=== PATIENT | female | born 1950 | race Caucasian/White ===

== ENCOUNTER 2021-03-08 16:18 | Inpatient (IN) | payer MEDICARE, SELFPAY ==
[2021-03-08] VITALS (10 sets, daily range): BP systolic 100–161; BP diastolic 46–68; PULSE 66–76; RESP 16–24; TEMP 36.8–38.1; O2SAT 87–100; BMI 39.4
--- NOTE | ~2021-03-08 | XR_ITS ---
EXAMINATION: XR chest 1V portable DATE: 03/08/2021 18:27 INDICATION: Cough and fever. Lethargy. TECHNIQUE: A single frontal view of the chest was obtained. COMPARISON: Chest 2 views 05/26/2016 FINDINGS: Sensitivity is decreased by obesity. The chest demonstrates clear lungs without pneumonia, pleural effusion, or pneumothorax. The heart size is normal. IMPRESSION: 1. No acute cardiopulmonary disease. Reviewed, dictated and finalized at location A.
--- NOTE | ~2021-03-08 | XR_ITS ---
EXAMINATION: XR chest 1V portable INDICATION: COVID pneumonia TECHNIQUE: Portable AP chest at 1530 hours COMPARISON: 03/08/2021 FINDINGS: There are patchy bilateral airspace opacities. No pleural effusion or pneumothorax is ident ified. The cardiomediastinal silhouette is normal. There is mild osteoarthritis of the shoulders. IMPRESSION: 1. Patchy bilateral airspace opacities, likely COVID pneumonia. Reviewed, dictated and finalized at location B.
[2021-03-08 17:02] LABS: Glucose Point of Care 207 mg/dl (65-105)
[2021-03-08 18:12] LABS: Basophils Percent Auto 0.2 % (0.2-1.2); Hematocrit 36.6 % (37.0-47.0); Hemoglobin 11.7 g/dL (12.0-15.0); Immature Granulocyte Absolute 0.03 K/mm3 (0.00-0.031); Immature Granulocyte Percent A 0.6 % (0-0.5); Lymphocytes Absolute Auto 0.88 K/mm3 (0.9-3.2); Lymphocytes Percent Auto 18.3 % (18.3-44.2); Mean Corpuscular Hemoglobin 30.1 pg (26-34); Mean Corpuscular Volume 94.1 fl (80-100); Monocytes Absolute Auto 0.5 K/mm3 (0.1-0.6); Monocytes Percent Auto 9.8 % (2.6-8.5); Neutrophils Absolute Auto 3.4 K/mm3 (1.3-6.7); Neutrophils Percent Auto 71.1 % (45.5-73.1); Nucleated Red Blood Cells Perc 0.6 % (0.0-0.2); Platelet Count Result 175 k/mm3 (150-375); Red Blood Count 3.89 M/mm3 (4.2-5.4); Red Cell Distribution Width 13.9 % (11.5-14.5); White Blood Count 4.8 K/mm3 (4.5-10.0)
[2021-03-08 18:16] LABS: Alveolar/Arterial O2 Gradient 76.3 mmHg; Base Excess ABG 7.2 mEq/l (+/-2.0); Fractional Inspired Oxygen 28 %; HCO3 ABG 33.6 mEq/l (22.0-26.0); Oxygen Content ABG 16.1 %vol (16.0-22.0); Oxygen Saturation ABG 89.5 % (95.0-100.0); Oxyhemoglobin 87.9 % THb (90.0-100.0); PCO2 ABG 55.5 mmHg (35.0-45.0); PO2 ABG 57.9 mmHg (80.0-100.0); PO2 FiO2 Ratio Arterial Blood 2.07 %
[2021-03-08 18:21] LABS: Device NASAL CANNULA; Modified Allen's Test Pass; Site Drawn RIGHT RADIAL
--- NOTE | 2021-03-08 18:30 | PC.NURSE ---
SPOKE WITH DAUGHTER CARRIER, UPDATES GIVEN
--- NOTE | 2021-03-08 18:46 | PC.NURSE ---
PT STATES UNABLE TO VOID AT THIS TIME . STATES WILL TRY LATER
[2021-03-08 18:53] LABS: Anion Gap 4 mmol/L (8-16); Blood Urea Nitrogen 38 mg/dL (7-17); Calcium 8.3 mg/dL (8.4-10.2); Carbon Dioxide 32 mmol/L (22-30); Chloride 98 mmol/L (98-107); Estimated CRCL calculation 45 ml/min; Estimated Glomerular Filt Rate 44; Glucose 187 mg/dL (65-110); Lactate Dehydrogenase 840 U/L (313-618); Potassium 4.8 mmol/L (3.4-5.0); Sodium 134 mmol/L (137-145)
--- NOTE | 2021-03-08 19:56 | ED.FEVER ---
HPI - Fever General Chief Complaint: Fever Stated Complaint: fever, cough Time Seen by Provider: 03/08/21 17:33 Source: patient Mode of arrival: ambulatory Limitations: clinical condition History of Present Illness HPI Narrative: 70-year-old female Poor historian She has COPD and uses oxygen at home She did not get a Covid vaccination She went to [place] She has fever and a cough and shortness of breath in excess of what she typically experiences Related Data Home Medications Medication Instructions Recorded Confirmed amlodipine 2.5 mg PO DAILY 03/08/21 03/08/21 aspirin [Aspir-81] 81 mg PO DAILY 03/08/21 03/08/21 atorvastatin 40 mg PO DAILY 03/08/21 03/08/21 yrhegsq-kapniozvy-psgq 1 tab-cap PO DAILY 03/08/21 03/08/21 clopidogrel 75 mg PO DAILY 03/08/21 03/08/21 diazepam 10 mg PO HS 03/08/21 03/08/21 hydrochlorothiazide 25 mg PO DAILY 03/08/21 03/08/21 hydrocodone-acetaminophen 1 tablet PO PRN 03/08/21 03/08/21 lisinopril 40 mg PO DAILY 03/08/21 03/08/21 Allergies Allergy/AdvReac Type Severity Reaction Status Date / Time Penicillins Allergy Unknown HIVES Verified 03/08/21 18:17 Sulfa (Sulfonamide Allergy Unknown REDNESS/ALEXANDRA Verified 03/08/21 18:17 Antibiotics) H Review of Systems Review of Systems: All systems reviewed & are unremarkable except as noted in HPI and below Constitutional: Constitutional: Reports no additional constitutional complaints, Reports chills, Reports fatigue, Reports fever(s) and Denies headache(s) Eyes: Eyes: Reports no additional eye complaints and Denies change in vision ENT: Denies headache(s) and Denies sore throat Cardiovascular: Cardiovascular: Denies chest pain and Denies dyspnea Respiratory: Respiratory: Reports cough and Reports dyspnea Gastrointestinal: Gastrointestinal: Denies abdominal pain, Denies diarrhea and Denies vomiting Genitourinary: Genitourinary: Denies urinary frequency and Denies dysuria Musculoskeletal: Musculoskeletal: Denies deformity, Denies arthralgias, Denies joint swelling and Denies numbness Integumentary/Breasts: Skin/Breast: Denies rash and Denies wounds Neurologic: Denies headache(s), Denies focal weakness and Denies numbness Psychiatric: Psychiatric: Reports no additional psychiatric complaints Endocrine: Endocrine: Reports no additional endocrine complaints Hematologic/Lymphatic: Hematologic/Lymphatic: Reports no additional hematologic/lymphatic complaints Allergic/Immunologic: Allergic/Immunologic: Reports no additional allergic/immunologic complaints [facility] Social History Social History Gender identity (if verbalized by the patient): Female Exam Const: General: cooperative, no acute distress and alert Nutritional Appearance: obese Orientation/consciousness: confusion Other: Appears chronically ill HENMT: Head: normal to inspection, normocephalic and atraumatic Ears: external ears normal General nose exam: no epistaxis Mouth: Yes moist mucous membranes Eyes: Conjunctivae: conjunctivae normal EOM: EOMs intact bilaterally Neck: Neck: normal visual inspection, supple and no JVD Resp: Effort & Inspection: normal respiratory effort and not labored Auscultation: no rales, no rhonchi, no wheezes and other (BS =) Cardio: Rate: regular rate Rhythm: regular rhythm Heart sounds: no murmurs GI: GI Palp: Yes Soft to palpation and No Tenderness to palpation present (GI) Skin: General skin exam: no rashes or lesions noted Other: Marked venous stasis changes both legs Neuro: General: moves all extremities Speech: normal speech Extrem: General: normal to inspection and no pedal edema Psych: Affect: normal affect Course [employer] Physician Supervision Certainly could have Covid given she is unvaccinated and her travel to an endemic area which would be very unfortunate considering her underlying comorbidities and age No infiltrate on chest x-ray so initially would treat as a bacterial COPD exacerbation with nebs
[2021-03-08] MEDS: IPRATROPIUM BR 0.02% INH SOLN 0.5 MG/2.5 ML VIAL INHALATION (20:13)
[2021-03-08] MEDS: ALBUTEROL SULFATE NEB 2.5 MG/0.5 ML INH 5 MG INHALATION (20:13)
[2021-03-08 23:09] LABS: Lactic Acid Reflex 1.2 mmol/L (0.7-2.1)
--- NOTE | 2021-03-08 23:24 | PM.IMHP ---
H&P: HPI History of Present Illness Date/Time: 03/08/21 23:24 Chief Complaint: Fevers Narrative: This is a 70-year-old female with past medical history significant for hypertension, dyslipidemia. Patient presented to the emergency room due to fevers chills shortness of breath cough general malaise muscle aches and pains poor appetite fatigue lack of energy. Patient is on vaccinated and she had been to [facility] visiting she notice of these symptoms after she came back about a week into it. In emergency room patient was found with no infiltrates on chest x-ray. She received breathing treatments and a COVID swab was sent. Patient is being admitted to regular medical floor and placed in airborne isolation. Review of Systems Review of Systems: FEVERS CHILLS GENERAL MALAISE MUSCLE ACHES AND PAINS GENERALIZED WEAKNESS LACK OF ENERGY SHORTNESS OF BREATH Constitutional: Constitutional: Reports chills, Reports fatigue, Reports fever(s), Reports lethargy and Reports malaise Eyes: Eyes: Denies change in vision ENT: Denies dysphagia, Denies nasal congestion, Denies nasal discharge, Denies nasal obstruction and Denies odynophagia Cardiovascular: Cardiovascular: Denies irregular heart rhythm, Denies lightheadedness, Denies radiating jaw, neck or arm pain, Denies palpitations, Denies dyspnea on exertion and Denies orthopnea Respiratory: Respiratory: Reports cough, Reports dyspnea and Reports wheezing Gastrointestinal: Comments: POOR APPETITE Genitourinary: Genitourinary: Reports no additional female genitourinary complaints Musculoskeletal: Musculoskeletal: Reports muscle weakness Integumentary/Breasts: Skin/Breast: Reports system reviewed and no additional complaints, except as docu Neurologic: Reports system reviewed and no additional complaints, except as documented, Denies focal weakness and Denies Sensory deficit (Neuro) Psychiatric: Psychiatric: Reports no additional psychiatric complaints Endocrine: Endocrine: Reports no additional endocrine complaints Hematologic/Lymphatic: Hematologic/Lymphatic: Reports no additional hematologic/lymphatic complaints Allergic/Immunologic: Allergic/Immunologic: Reports no additional allergic/immunologic complaints [facility] Social History Social History Smoking status: Former smoker Tobacco type: cigarettes Alcohol intake: never Substance use: never Substance use type: does not use Gender identity (if verbalized by the patient): Female Spiritual care concerns: No Meds Home Medications and Allergies Home Medications Medication Instructions Recorded Confirmed Type amlodipine 2.5 mg PO DAILY 03/08/21 03/08/21 History aspirin [Aspir-81] 81 mg PO DAILY 03/08/21 03/08/21 History atorvastatin 40 mg PO DAILY 03/08/21 03/08/21 History [id number]-[id number]-[id number] 1 tab-cap PO DAILY 03/08/21 03/08/21 History clopidogrel 75 mg PO DAILY 03/08/21 03/08/21 History diazepam 10 mg PO HS 03/08/21 03/08/21 History hydrochlorothiazide 25 mg PO DAILY 03/08/21 03/08/21 History hydrocodone-acetaminophen 1 tablet PO PRN 03/08/21 03/08/21 History lisinopril 40 mg PO DAILY 03/08/21 03/08/21 History Allergies Allergy/AdvReac Type Severity Reaction Status Date / Time Penicillins Allergy Unknown HIVES Verified 03/08/21 18:17 Sulfa (Sulfonamide Allergy Unknown REDNESS/ALEXANDRA Verified 03/08/21 18:17 Antibiotics) H Vital Signs Vital Signs - 24 hr 03/08/21 16:43 03/08/21 17:56 03/08/21 18:47 Temperature 100.5 F H Pulse Rate 69 76 71 Respiratory Rate 20 24 H 16 Blood Pressure 102/46 L 113/50 L 100/60 Pulse Oximetry 87 L 100 96 03/08/21 19:57 03/08/21 20:16 03/08/21 20:21 Temperature 99.5 F Pulse Rate 68 76 66 Respiratory Rate 18 18 22 H Blood Pressure 136/68 Pulse Oximetry 96 03/08/21 20:57 03/08/21 21:57 03/08/21 22:25 Temperature 98.2 F Pulse Rate 75 72 75 Respiratory Rate 20 17 20 Blood Pressure 158/55 H 140/68 161/54 H Pulse Oximetry 98 99 92 Exam Na
[2021-03-08] MEDS: LACTATED RINGERS 1,000 ML 125 ML IV CONT (23:56)
[2021-03-09] VITALS (11 sets, daily range): BP systolic 113–160; BP diastolic 49–83; PULSE 61–84; RESP 18–20; TEMP 35.8–36.8; O2SAT 91–94
[2021-03-09] MEDS: ALBUTEROL SULFATE NEB 2.5 MG/0.5 ML INH 5 MG INHALATION ×3 (02:37→23:48)
[2021-03-09] MEDS: IPRATROPIUM BR 0.02% INH SOLN 0.5 MG/2.5 ML VIAL INHALATION ×3 (02:38→23:48)
--- NOTE | 2021-03-09 07:59 | PC.NURSE ---
Admission performed on arrival. Patient was alert and oriented. She seemed like a good historian though had some lapses in memory. She denied pain. She stated that she had a strong appetite and hadn't eaten dinner. She had some minor weakness, likely related to hypoxia. It was reported that her SpO2 was < 70% on RA w/o oxygen while ambulating, so her NC was left on 1 lpm though she had an SpO2 of 94% at rest. We discussed hospital policy, testing, call light use, and safety issues regarding IV use and the importance of calling for help.
[2021-03-09 08:56] LABS: Glucose Point of Care 447 mg/dl (65-105)
[2021-03-09 08:56] LABS: Glucose Point of Care 433 mg/dl (65-105)
[2021-03-09 09:09] LABS: Glucose Point of Care 447 mg/dl (65-105)
[2021-03-09] MEDS: hydroCHLOROthiazide 25 MG TABLET PO (09:16)
[2021-03-09] MEDS: ATORVASTATIN 40 MG TABLET PO (09:16)
[2021-03-09] MEDS: amLODIPine BESYLATE 2.5 MG TABLET PO (09:17)
[2021-03-09] MEDS: lisinopriL 20 MG TABLET 40 MG PO (09:17)
[2021-03-09] MEDS: ENOXAPARIN 40 MG/0.4 ML SYRINGE SUB-Q (09:18)
[2021-03-09] MEDS: ASPIRIN 81 MG ENTERIC TABLET PO (09:18)
[2021-03-09] MEDS: CLOPIDOGREL BISULFATE 75 MG TABLET PO (09:19)
[2021-03-09] MEDS: INSULIN ASPART (*BKC) 100 UNITS/ML 8 UNITS SUB-Q (09:26)
--- NOTE | 2021-03-09 10:35 | PCRCNOTE ---
Window of time for administration has passed. See next scheduled administration.
[2021-03-09 11:24] LABS: Glucose Point of Care 485 mg/dl (65-105)
[2021-03-09 11:31] LABS: Hemoglobin A1C 10.4 % (<5.7)
[2021-03-09] MEDS: INSULIN ASPART (*BKC) 100 UNITS/ML SUB-Q ×2 (12:13→18:07)
[2021-03-09] MEDS: INSULIN GLARGINE (*BKC) 100 UNITS/ML 25 UNITS SUB-Q (12:13)
[2021-03-09 13:19] LABS: Glucose Point of Care 442 mg/dl (65-105)
--- NOTE | 2021-03-09 15:36 | PM.IMPN ---
Progress Note: A&P Assessment and Plan (1) Acute exacerbation of chronic obstructive pulmonary disease: Code(s): J44.1 - Chronic obstructive pulmonary disease with (acute) exacerbation Status: Acute Assessment and Plan: 03/09/21 15:36 Patient is 70-year-old female with history of chronic respiratory failure on home oxygen, COPD, diabetes, coronary artery disease, patient presented emergency department with a cough, shortness of breath and fever, patient is unvaccinated and recently went to [place] and since then her symptoms have developed, patient is high risk COVID-19 patient being tested an isolated, from emergency depart patient started on dexamethasone, DuoNeb, ceftriaxone and doxycycline, currently patient states feeling better compared to when she arrived not a short of breath, currently denies any fever or chills, will follow-up on COVID 19, and further recommendation to follow. (2) Fever: Code(s): R50.9 - Fever, unspecified Status: Acute Assessment and Plan: most likely secondary to COVID-19 being tested (3) Person under investigation for COVID-19: Code(s): Z20.822 - Contact with and (suspected) exposure to COVID-19 Status: Acute Assessment and Plan: patient is isolated, (4) Diabetes: Code(s): E11.9 - Type 2 diabetes mellitus without complications Status: Acute Assessment and Plan: will continue home regimen and monitor sliding scale (5) Hypertension: Code(s): I10 - Essential (primary) hypertension Status: Acute Assessment and Plan: will continue home regimen and monitor Subjective Date/time seen: 03/09/21 15:36 Patient is 70-year-old female with history of chronic respiratory failure on home oxygen, COPD, diabetes, coronary artery disease, patient presented emergency department with a cough, shortness of breath and fever, patient is unvaccinated and recently went to [place] and since then her symptoms have developed, patient is high risk COVID-19 patient being tested an isolated, from emergency depart patient started on dexamethasone, DuoNeb, ceftriaxone and doxycycline, currently patient states feeling better compared to when she arrived not a short of breath, currently denies any fever or chills, will follow-up on COVID 19, and further recommendation to follow. Review of Systems Review of Systems: All systems reviewed & are unremarkable except as noted in HPI and below Exam Narrative: morbidly obese Patient is comfortable, NAD HEENT: eyes are clear and none icteric LUNGS: normal respiratory effort ABD: distended Lower extremities: obese, edema SKIN: nonjaundiced Neuro: grossly intact normal speech. Objective Data Vital Signs Vital Signs: Vital Signs - 24 hr 03/08/21 16:43 03/08/21 17:56 03/08/21 18:47 Temperature 100.5 F H Pulse Rate 69 76 71 Respiratory Rate 20 24 H 16 Blood Pressure 102/46 L 113/50 L 100/60 Pulse Oximetry 87 L 100 96 03/08/21 19:57 03/08/21 20:16 03/08/21 20:21 Temperature 99.5 F Pulse Rate 68 76 66 Respiratory Rate 18 18 22 H Blood Pressure 136/68 Pulse Oximetry 96 03/08/21 20:57 03/08/21 21:57 03/08/21 22:25 Temperature 98.2 F Pulse Rate 75 72 75 Respiratory Rate 20 17 20 Blood Pressure 158/55 H 140/68 161/54 H Pulse Oximetry 98 99 92 03/08/21 22:43 03/09/21 02:38 03/09/21 02:41 Temperature Pulse Rate 75 75 Respiratory Rate 20 20 Blood Pressure Pulse Oximetry 92 94 03/09/21 02:49 03/09/21 04:00 03/09/21 08:00 Temperature 96.7 F L 96.5 F L Pulse Rate 77 66 63 Respiratory Rate 20 20 Blood Pressure 160/83 H 148/57 H Pulse Oximetry 94 92 03/09/21 11:57 03/09/21 11:59 03/09/21 12:00 Temperature 96.8 F L Pulse Rate 61 68 Respiratory Rate 18 18 Blood Pressure 113/49 L Pulse Oximetry 91 94 03/09/21 12:04 Temperature Pulse Rate 65 Respiratory Rate 18 Blood Pressure Pulse Oximetry Intake/Output Intak
[2021-03-09] MEDS: LACTATED RINGERS 1,000 ML 125 ML IV CONT (15:49)
[2021-03-09 17:31] LABS: SARS-CoV-2 RNA PCR Positive
[2021-03-09 18:00] LABS: Glucose Point of Care > 500 mg/dl (65-105)
[2021-03-09] MEDS: INSULIN ASPART (*BKC) 100 UNITS/ML 9 UNITS SUB-Q (18:06)
[2021-03-09] MEDS: INSULIN GLARGINE (*BKC) 100 UNITS/ML 40 UNITS SUB-Q (18:06)
[2021-03-09 19:14] LABS: Add Urine Microscopic? YES; Appearance Urine Cloudy (Clear); Bacteria Urine Trace /hpf; Bilirubin Urine Negative (Negative); Blood Urine Negative (Negative); Color Urine Yellow (Yellow); Glucose Urine UA 3+ mg/dL (Negative); Ketones Urine Negative (Negative); Leukocyte Esterase Ur Negative LEU/UL (Negative); Mucus Urine Rare /lpf; Nitrate Urine Negative (Negative); Protein Urine 1+ mg/dL (Negative); RBC Urine 0-2 /hpf (0-2); Specific Grav Ur 1.021 (1.001-1.035); Squamous Epithelial Cell Urine Occasional /hpf (Few); Urobilinogen Urine Negative mg/dL (<2.0)
[2021-03-09] MEDS: diazePAM (*CRX) 10 MG TABLET PO (20:29)
[2021-03-09 21:25] LABS: Glucose Point of Care 360 mg/dl (65-105)
--- NOTE | 2021-03-09 21:44 | PC.NURSE ---
Patient expressed concern about her high dose nighttime insulin. She stated that her usual insulin regime is as written below. HS 80-100 units of Lantus 12-16 units of Humalog Breakfast 2-4 units of Humalog Noon 2-4 units of Humalog Dinner 2-4 units of Humalog
[2021-03-09] MEDS: INSULIN ASPART (*BKC) 100 UNITS/ML 6 UNITS SUB-Q (22:14)
--- NOTE | 2021-03-09 23:48 | PCRCNOTE ---
Window of time for administration has passed. See next scheduled administration.
[2021-03-10] VITALS (19 sets, daily range): BP systolic 121–189; BP diastolic 46–89; PULSE 61–86; RESP 18–20; TEMP 36.2–38.1; O2SAT 90–97
[2021-03-10] MEDS: LACTATED RINGERS 1,000 ML 125 ML IV CONT ×3 (01:45→23:38)
[2021-03-10 02:09] LABS: Glucose Point of Care 270 mg/dl (65-105)
[2021-03-10] MEDS: IPRATROPIUM BR 0.02% INH SOLN 0.5 MG/2.5 ML VIAL INHALATION ×4 (02:12→20:46)
[2021-03-10] MEDS: ALBUTEROL SULFATE NEB 2.5 MG/0.5 ML INH 5 MG INHALATION ×4 (02:12→20:46)
[2021-03-10 06:20] LABS: Hematocrit 39.2 % (37.0-47.0); Hemoglobin 12.2 g/dL (12.0-15.0); Mean Corpuscular HGB Conc 31.1 g/dl (32-36); Mean Corpuscular Hemoglobin 29.5 pg (26-34); Mean Corpuscular Volume 94.9 fl (80-100); Mean Platelet Volume 11.1 fl (7.4-10.4); Platelet Count Result 217 k/mm3 (150-375); Red Blood Count 4.13 M/mm3 (4.2-5.4); Red Cell Distribution Width 13.8 % (11.5-14.5); White Blood Count 7.7 K/mm3 (4.5-10.0)
[2021-03-10 06:29] LABS: Alanine Aminotransferase 14 U/L (4-35); Albumin Level 3.3 g/dL (3.5-5.1); Alkaline Phosphatase 52 U/L (38-126); Anion Gap 8 mmol/L (8-16); Aspartate Amino Transferase 42 U/L (14-36); Bilirubin,Total 0.4 mg/dL (0.2-1.3); Blood Urea Nitrogen 41 mg/dL (7-17); CRP 2.8 mg/dL (<1.0); Calcium 8.9 mg/dL (8.4-10.2); Carbon Dioxide 30 mmol/L (22-30); Chloride 96 mmol/L (98-107); Estimated CRCL calculation 54 ml/min; Estimated Glomerular Filt Rate 55; Glucose 247 mg/dL (65-110); Potassium 4.8 mmol/L (3.4-5.0); Sodium 134 mmol/L (137-145)
--- NOTE | 2021-03-10 07:32 | PCDIET ---
Discussed patient's most recent insulin orders by a pharmacist named Nathanael at [facility]. This was on request of Emily ZENG. Patient expressed frustration with elevated blood sugars and not getting her usual insulin regimen. When asked she claimed her Lantus was 80-100u HS which was questioned by Emily. She received a 1x dose of Humalog otherwise and appeared to be sleeping through the night. Blood sugars were in the 200's.
[2021-03-10 08:35] LABS: Glucose Point of Care 240 mg/dl (65-105)
[2021-03-10] MEDS: ACETAMINOPHEN 325 MG TABLET 650 MG PO (10:18)
[2021-03-10] MEDS: amLODIPine BESYLATE 2.5 MG TABLET PO (10:19)
[2021-03-10] MEDS: ASPIRIN 81 MG ENTERIC TABLET PO (10:19)
[2021-03-10] MEDS: hydroCHLOROthiazide 25 MG TABLET PO (10:19)
[2021-03-10] MEDS: lisinopriL 20 MG TABLET 40 MG PO (10:20)
[2021-03-10] MEDS: ATORVASTATIN 40 MG TABLET PO (10:20)
[2021-03-10] MEDS: CLOPIDOGREL BISULFATE 75 MG TABLET PO (10:20)
[2021-03-10] MEDS: INSULIN ASPART (*BKC) 100 UNITS/ML SUB-Q ×2 (10:22→14:35)
[2021-03-10] MEDS: INSULIN GLARGINE (*BKC) 100 UNITS/ML 40 UNITS SUB-Q (14:30)
[2021-03-10] MEDS: guaiFENesin 12 HR 600 MG TABCR 1200 MG PO ×2 (14:35→20:27)
[2021-03-10 14:46] LABS: INR 0.9; Prothrombin Time 12.4 Seconds (11.1-14.7)
[2021-03-10 14:52] LABS: Glucose Point of Care 277 mg/dl (65-105)
[2021-03-10 15:00] LABS: Alanine Aminotransferase 12 U/L (4-35); Estimated CRCL calculation 49 ml/min; Estimated Glomerular Filt Rate 49
--- NOTE | 2021-03-10 15:40 | PM.IMPN ---
Progress Note: A&P Assessment and Plan (1) Acute exacerbation of chronic obstructive pulmonary disease: Code(s): J44.1 - Chronic obstructive pulmonary disease with (acute) exacerbation Status: Acute Assessment and Plan: On COVID isolation BREATHING TREATMENTS Empiric treatment with doxycycline and ceftriaxone Was given a dose of Decadron on 03/08 however deferred due to severe hyperglycemia Continue SUPPORTIVE CARE (2) Fever: Code(s): R50.9 - Fever, unspecified Status: Acute Assessment and Plan: SUPPORTIVE CARE Tylenol p.r.n. Cultures has been negative so far except for COVID positive (3) Diabetes: Code(s): E11.9 - Type 2 diabetes mellitus without complications Status: Acute Assessment and Plan: CONTINUE TO MONITOR APPARENTLY DIET CONTROLLED ONLY Uses insulin high dose at home resumed INSULIN SLIDING SCALE NEEDED (4) Hypertension: Code(s): I10 - Essential (primary) hypertension Status: Acute Assessment and Plan: CONTINUE HOME MEDICATIONS CONTINUE TO MONITOR (5) COVID-19: Code(s): U07.1 - COVID-19 Status: Acute Assessment and Plan: On 2 L of oxygen which he normally uses at home chronically Chest x-ray negative for any acute abnormality With hypoxia, Will start remdesivir discussed with the patient Discussed Decadron therapy however due to hyperglycemia she refuses to be on it (6) COPD (chronic obstructive pulmonary disease): Code(s): J44.9 - Chronic obstructive pulmonary disease, unspecified Status: Acute Assessment and Plan: Continue home medications (7) Chronic respiratory failure with hypoxia, on home oxygen therapy: Code(s): J96.11 - Chronic respiratory failure with hypoxia; Z99.81 - Dependence on supplemental oxygen Status: Acute Assessment and Plan: On 2 L oxygen at home (8) Weakness: Code(s): R53.1 - Weakness Status: Acute Assessment and Plan: Will order PT OT Subjective Date/time seen: 03/10/21 15:40 Interval history: Reports he feels okay but still weak and tired and sleepy. She continues to remain mildly febrile. She denies any shortness of breath. Discussed about positive COVID test in Decadron therapy. With hyperglycemia she refuses to be on that Review of Systems Review of Systems: All systems reviewed & are unremarkable except as noted in HPI and below Exam Narrative: GENERAL: The patient with morbid obesity, not in acute distress HEENT: Nonicteric sclerae, PERRLA, EOMI. Oropharynx clear. Moist mucous membranes. Conjunctivae appear well perfused. CHEST: Chest wall is nontender. HEART: Regular rate and rhythm without murmur, rubs, or gallops LUNGS: Decreased breath sound bilaterally. no respiratory distress ABDOMEN: Soft, positive bowel sounds, non-tender, no organomegaly. SKIN: No rash, no excessive bruising, petechiae, or purpura. NEUROLOGIC: Cranial nerves II-XII intact, alert and oriented x 3, no gross motor deficits EXTREMITIES: no edema, cyanosis or clubbing Extrem: General: normal exam except as noted and no edema Objective Data Vital Signs Vital Signs: Vital Signs - 24 hr 03/09/21 16:00 03/09/21 20:00 03/10/21 00:00 Temperature 97.1 F L 98.3 F 99.3 F Pulse Rate 84 69 80 Respiratory Rate 18 20 20 Blood Pressure 122/51 L 140/61 170/60 H Pulse Oximetry 93 91 93 03/10/21 02:12 03/10/21 02:17 03/10/21 04:00 Temperature 98.8 F Pulse Rate 61 63 86 Respiratory Rate 18 18 18 Blood Pressure 189/65 H Pulse Oximetry 91 03/10/21 08:00 03/10/21 09:45 03/10/21 10:02 Temperature 100.6 F H Pulse Rate 83 62 62 Respiratory Rate 20 18 18 Blood Pressure 178/64 H Pulse Oximetry 93 93 03/10/21 10:18 03/10/21 12:00 03/10/21 15:18 Temperature 100.6 F H 99.8 F H Pulse Rate 86 71 Respiratory Rate 20 20 Blood Pressure 126/46 L Pulse Oximetry 92 03/10/21 15:28 Temperature Pulse Rate 62 Respira
[2021-03-10] MEDS: REMDESIVIR 200 MG/NS 250 ML 200 MG/250 ML BAG 250 MG IVPB (16:15)
[2021-03-10 17:58] LABS: Glucose Point of Care 182 mg/dl (65-105)
[2021-03-10] MEDS: diazePAM (*CRX) 10 MG TABLET PO (20:27)
[2021-03-11] VITALS (13 sets, daily range): BP systolic 118–158; BP diastolic 45–69; PULSE 62–95; RESP 18–24; TEMP 36.7–37.8; O2SAT 90–95
[2021-03-11 00:11] LABS: Glucose Point of Care 156 mg/dl (65-105)
[2021-03-11] MEDS: ALBUTEROL SULFATE NEB 2.5 MG/0.5 ML INH 5 MG INHALATION ×4 (03:35→20:53)
[2021-03-11] MEDS: IPRATROPIUM BR 0.02% INH SOLN 0.5 MG/2.5 ML VIAL INHALATION ×4 (03:36→20:53)
[2021-03-11 06:37] LABS: Hematocrit 34.8 % (37.0-47.0); Mean Corpuscular HGB Conc 31.6 g/dl (32-36); Mean Corpuscular Volume 94.8 fl (80-100); Platelet Count Result 191 k/mm3 (150-375); Red Blood Count 3.67 M/mm3 (4.2-5.4); White Blood Count 6.8 K/mm3 (4.5-10.0)
[2021-03-11 06:46] LABS: Alanine Aminotransferase 11 U/L (4-35); Albumin Level 2.8 g/dL (3.5-5.1); Alkaline Phosphatase 43 U/L (38-126); Anion Gap 4 mmol/L (8-16); Aspartate Amino Transferase 46 U/L (14-36); Bilirubin,Total 0.4 mg/dL (0.2-1.3); Blood Urea Nitrogen 32 mg/dL (7-17); CRP 7.5 mg/dL (<1.0); Calcium 8.3 mg/dL (8.4-10.2); Carbon Dioxide 29 mmol/L (22-30); Chloride 98 mmol/L (98-107); Estimated CRCL calculation 59 ml/min; Estimated Glomerular Filt Rate > 60; Glucose 192 mg/dL (65-110); Potassium 4.7 mmol/L (3.4-5.0); Sodium 131 mmol/L (137-145)
[2021-03-11 06:47] LABS: Prothrombin Time 13.2 Seconds (11.1-14.7)
[2021-03-11 08:30] LABS: Glucose Point of Care 206 mg/dl (65-105)
[2021-03-11] MEDS: LACTATED RINGERS 1,000 ML 125 ML IV CONT (09:26)
[2021-03-11] MEDS: CLOPIDOGREL BISULFATE 75 MG TABLET PO (09:27)
[2021-03-11] MEDS: lisinopriL 20 MG TABLET 40 MG PO (09:27)
[2021-03-11] MEDS: ASPIRIN 81 MG ENTERIC TABLET PO (09:27)
[2021-03-11] MEDS: guaiFENesin 12 HR 600 MG TABCR 1200 MG PO ×2 (09:27→20:40)
[2021-03-11] MEDS: ATORVASTATIN 40 MG TABLET PO (09:27)
[2021-03-11] MEDS: amLODIPine BESYLATE 2.5 MG TABLET PO (09:27)
[2021-03-11] MEDS: hydroCHLOROthiazide 25 MG TABLET PO (09:27)
[2021-03-11] MEDS: INSULIN GLARGINE (*BKC) 100 UNITS/ML 40 UNITS SUB-Q ×2 (09:28→17:36)
[2021-03-11] MEDS: INSULIN ASPART (*BKC) 100 UNITS/ML SUB-Q ×2 (09:29→17:37)
[2021-03-11 12:32] LABS: Glucose Point of Care 229 mg/dl (65-105)
[2021-03-11 17:36] LABS: Glucose Point of Care 214 mg/dl (65-105)
[2021-03-11 17:49] LABS: D Dimer 1.88 ug/mL (<0.48)
--- NOTE | 2021-03-11 18:35 | PM.IMPN ---
Progress Note: A&P Assessment and Plan (1) Acute exacerbation of chronic obstructive pulmonary disease: Code(s): J44.1 - Chronic obstructive pulmonary disease with (acute) exacerbation Status: Acute Assessment and Plan: On COVID isolation BREATHING TREATMENTS Empiric treatment with doxycycline and ceftriaxone-> abated will treat priscila Pimentel for COVID Was given a dose of Decadron on 03/08 however deferred due to severe hyperglycemia -> restart dexamethasone and titrate insulin as needed Continue SUPPORTIVE CARE (2) Fever: Code(s): R50.9 - Fever, unspecified Status: Acute Assessment and Plan: SUPPORTIVE CARE Tylenol p.r.n. Cultures has been negative so far except for COVID positive (3) Diabetes: Code(s): E11.9 - Type 2 diabetes mellitus without complications Status: Acute Assessment and Plan: CONTINUE TO MONITOR APPARENTLY DIET CONTROLLED ONLY -> HgbA1c 10.4 will need diabetic treatment at ut Uses insulin high dose at home resumed INSULIN SLIDING SCALE NEEDED (4) Hypertension: Code(s): I10 - Essential (primary) hypertension Status: Acute Assessment and Plan: CONTINUE HOME MEDICATIONS CONTINUE TO MONITOR (5) COVID-19: Code(s): U07.1 - COVID-19 Status: Acute Assessment and Plan: On 2 L of oxygen which he normally uses at home chronically Chest x-ray negative for any acute abnormality With hypoxia, Will start remdesivir discussed with the patient Discussed Decadron therapy however due to hyperglycemia she refuses to be on it (6) COPD (chronic obstructive pulmonary disease): Code(s): J44.9 - Chronic obstructive pulmonary disease, unspecified Status: Acute Assessment and Plan: Continue home medications (7) Chronic respiratory failure with hypoxia, on home oxygen therapy: Code(s): J96.11 - Chronic respiratory failure with hypoxia; Z99.81 - Dependence on supplemental oxygen Status: Acute Assessment and Plan: On 2 L oxygen at home (8) Weakness: Code(s): R53.1 - Weakness Status: Acute Assessment and Plan: Will order PT OT Subjective Date/time seen: 03/11/21 18:35 Patient up ambulating independently to the restroom with her oxygen and place. She would like to go home. Patient advise that we should continue her remdesivir treatment and to complete at least 5 day course to make sure that she is indeed improving prior to her discharge home. She already has home oxygen she uses 2 L at night as needed. Exam Narrative: GENERAL: The patient with morbid obesity, not in acute distress HEENT: Nonicteric sclerae, EOMI. Oropharynx clear. Moist mucous membranes. Conjunctivae appear well perfused. LUNGS: Symmetric chest rise. no respiratory distress SKIN: No rash, no excessive bruising, petechiae, or purpura. NEUROLOGIC: Cranial nerves II-XII intact, alert and oriented x 3, no gross motor deficits EXTREMITIES: no edema, cyanosis or clubbing PSYCH: mood and affect congruent Objective Data Vital Signs Vital Signs: Vital Signs - 24 hr 03/10/21 20:00 03/10/21 20:47 03/10/21 20:58 Temperature Pulse Rate 68 66 Respiratory Rate 20 Blood Pressure Pulse Oximetry 94 03/10/21 20:59 03/10/21 21:17 03/10/21 23:52 Temperature 98.5 F 98.9 F Pulse Rate 85 86 Respiratory Rate 18 18 Blood Pressure 149/89 H 152/60 H Pulse Oximetry 93 97 90 03/11/21 03:00 03/11/21 03:36 03/11/21 03:44 Temperature 99.1 F Pulse Rate 95 62 68 Respiratory Rate 18 20 20 Blood Pressure 158/69 H Pulse Oximetry 95 03/11/21 08:00 03/11/21 08:21 03/11/21 08:22 Temperature 98.6 F Pulse Rate 89 80 Respiratory Rate 24 H 20 Blood Pressure 152/54 H Pulse Oximetry 92 90 03/11/21 12:00 03/11/21 13:54 03/11/21 14:27 Temperature 100.0 F H Pulse Rate 79 79 88 Respiratory Rate 20 18 18 Blood Pressure 130/48 L Pulse Oximetry 91 03/11/21 16:00 Temperature 9
[2021-03-11] MEDS: AZITHROMYCIN 250 MG TABLET 500 MG PO (20:39)
[2021-03-11] MEDS: DEXAMETHASONE 2 MG TABLET 6 MG PO (20:39)
[2021-03-11] MEDS: diazePAM (*CRX) 10 MG TABLET PO (20:40)
[2021-03-11] MEDS: REMDESIVIR 100 MG/NS 250 ML 100 MG/250 ML BAG 250 MG IVPB (22:29)
[2021-03-11 23:02] LABS: Glucose Point of Care 185 mg/dl (65-105)
[2021-03-12] VITALS (13 sets, daily range): BP systolic 124–154; BP diastolic 45–68; PULSE 59–89; RESP 16–24; TEMP 35.9–37; O2SAT 90–97
[2021-03-12] MEDS: IPRATROPIUM BR 0.02% INH SOLN 0.5 MG/2.5 ML VIAL INHALATION ×3 (02:07→14:21)
[2021-03-12] MEDS: ALBUTEROL SULFATE NEB 2.5 MG/0.5 ML INH 5 MG INHALATION ×3 (02:07→14:21)
[2021-03-12] MEDS: LACTATED RINGERS 1,000 ML 125 ML IV CONT (04:22)
[2021-03-12 07:22] LABS: Hematocrit 33.6 % (37.0-47.0); Hemoglobin 10.5 g/dL (12.0-15.0); Mean Corpuscular HGB Conc 31.3 g/dl (32-36); Mean Corpuscular Hemoglobin 29.2 pg (26-34); Mean Corpuscular Volume 93.6 fl (80-100); Mean Platelet Volume 11.2 fl (7.4-10.4); Platelet Count Result 213 k/mm3 (150-375); Red Blood Count 3.59 M/mm3 (4.2-5.4); White Blood Count 4.4 K/mm3 (4.5-10.0)
[2021-03-12 07:39] LABS: Prothrombin Time 13.3 Seconds (11.1-14.7)
[2021-03-12 07:59] LABS: Alanine Aminotransferase 12 U/L (4-35); Albumin Level 2.6 g/dL (3.5-5.1); Alkaline Phosphatase 44 U/L (38-126); Anion Gap 6 mmol/L (8-16); Aspartate Amino Transferase 43 U/L (14-36); Bilirubin,Total 0.4 mg/dL (0.2-1.3); Blood Urea Nitrogen 42 mg/dL (7-17); CRP 13.3 mg/dL (<1.0); Calcium 8.5 mg/dL (8.4-10.2); Carbon Dioxide 29 mmol/L (22-30); Chloride 97 mmol/L (98-107); Estimated CRCL calculation 54 ml/min; Estimated Glomerular Filt Rate 55; Glucose 262 mg/dL (65-110); Potassium 4.8 mmol/L (3.4-5.0); Sodium 132 mmol/L (137-145)
[2021-03-12 08:35] LABS: Glucose Point of Care 314 mg/dl (65-105)
[2021-03-12] MEDS: AZITHROMYCIN 250 MG TABLET 500 MG PO (09:55)
[2021-03-12] MEDS: guaiFENesin 12 HR 600 MG TABCR 1200 MG PO ×2 (09:55→21:25)
[2021-03-12] MEDS: DEXAMETHASONE 2 MG TABLET 6 MG PO (09:55)
[2021-03-12] MEDS: amLODIPine BESYLATE 2.5 MG TABLET PO (09:56)
[2021-03-12] MEDS: CLOPIDOGREL BISULFATE 75 MG TABLET PO (09:56)
[2021-03-12] MEDS: hydroCHLOROthiazide 25 MG TABLET PO (09:56)
[2021-03-12] MEDS: lisinopriL 20 MG TABLET 40 MG PO (09:56)
[2021-03-12] MEDS: ENOXAPARIN 40 MG/0.4 ML SYRINGE SUB-Q (09:56)
[2021-03-12] MEDS: ATORVASTATIN 40 MG TABLET PO (09:56)
[2021-03-12] MEDS: ASPIRIN 81 MG ENTERIC TABLET PO (09:56)
[2021-03-12] MEDS: INSULIN ASPART (*BKC) 100 UNITS/ML SUB-Q ×5 (10:01→18:31)
[2021-03-12] MEDS: INSULIN GLARGINE (*BKC) 100 UNITS/ML 40 UNITS SUB-Q (10:02)
[2021-03-12 12:41] LABS: Glucose Point of Care 402 mg/dl (65-105)
--- NOTE | 2021-03-12 15:07 | PM.IMPN ---
Progress Note: A&P Assessment and Plan (1) Weakness: Code(s): R53.1 - Weakness Status: Acute Assessment and Plan: Will order PT OT (2) Chronic respiratory failure with hypoxia, on home oxygen therapy: Code(s): J96.11 - Chronic respiratory failure with hypoxia; Z99.81 - Dependence on supplemental oxygen Status: Acute Assessment and Plan: On 2 L oxygen at home (3) COPD (chronic obstructive pulmonary disease): Code(s): J44.9 - Chronic obstructive pulmonary disease, unspecified Status: Acute Assessment and Plan: Continue home medications (4) COVID-19: Code(s): U07.1 - COVID-19 Status: Acute Assessment and Plan: On 2 L of oxygen which she normally uses at home chronically Chest x-ray negative for any acute abnormality With hypoxia, Will start remdesivir discussed with the patient Discussed Decadron therapy and now in agreement to accept treatment (5) Hypertension: Code(s): I10 - Essential (primary) hypertension Status: Acute Assessment and Plan: CONTINUE HOME MEDICATIONS CONTINUE TO MONITOR (6) Diabetes: Code(s): E11.9 - Type 2 diabetes mellitus without complications Status: Acute Assessment and Plan: patient uses Lantus 70 units q.h.s. and 50 units q.a.m. in addition to NovoLog-> patient is poorly controlled the outpatient setting on this regimen with a HgbA1c 10.4 drawn during this admission [place] need diabetic treatment [place] Uses insulin high dose at home resumed steroid induced hyperglycemia will increase insulin p.r.n. (7) Obesity (BMI 30-39.9): Code(s): E66.9 - Obesity, unspecified Status: Acute Subjective Date/time seen: 03/12/21 15:07 with hyperglycemia patient complains that she feels very unwell when her blood sugars out of control. She does not want to steroid unless we are able to improve her blood glucose levels. Patient is advised we will do our best and reassess tomorrow to see if she is feeling better and to continue dexamethasone which is now been to be beneficial with COVID-19 infection Exam Narrative: GENERAL: morbid obesity, not in acute distress HEENT: Nonicteric sclerae, EOMI. Oropharynx clear. Moist mucous membranes. Conjunctivae appear well perfused. LUNGS: Symmetric chest rise. no respiratory distress SKIN: No rash, no excessive bruising, petechiae, or purpura. NEUROLOGIC: Cranial nerves II-XII intact, alert and oriented x 3, no gross motor deficits EXTREMITIES: no edema, cyanosis or clubbing, chronic venous stasis changes of the bilateral lower extremities PSYCH: mood and affect congruent Objective Data Vital Signs Vital Signs: Vital Signs - 24 hr 03/11/21 16:00 03/11/21 20:00 03/11/21 20:55 Temperature 98.1 F 98.6 F Pulse Rate 76 73 73 Respiratory Rate 20 22 H 18 Blood Pressure 118/48 L 124/45 L Pulse Oximetry 94 92 91 03/11/21 21:10 03/12/21 00:00 03/12/21 03:00 Temperature 98.6 F Pulse Rate 79 73 78 Respiratory Rate 18 22 H 18 Blood Pressure 124/45 L Pulse Oximetry 91 92 03/12/21 03:10 03/12/21 04:00 03/12/21 08:00 Temperature 98.3 F 98.1 F Pulse Rate 75 81 79 Respiratory Rate 18 22 H 24 H Blood Pressure 148/55 H 143/46 H Pulse Oximetry 93 90 03/12/21 10:06 03/12/21 10:19 03/12/21 12:00 Temperature 97.4 F L Pulse Rate 83 76 79 Respiratory Rate 18 18 20 Blood Pressure 132/50 L Pulse Oximetry 90 97 03/12/21 14:21 03/12/21 14:31 Temperature Pulse Rate 80 76 Respiratory Rate 18 18 Blood Pressure Pulse Oximetry Intake/Output Intake/Output: Intake & Output 03/09/21 03/10/21 03/11/21 03/12/21 23:59 23:59 23:59 23:59 Intake Total 3080 2570 3710 580 Output Total 500 300 Balance 2580 2570 3710 280 Meds/Results Medications: Active Medications Generic Name Dose Route Start Last Admin Trade Name Freq PRN Reason Stop Dose Admin Acetaminophen 650 mg 03/08/21 20:42 03/10/21 10:18 A
[2021-03-12 17:13] LABS: Glucose Point of Care 376 mg/dl (65-105)
[2021-03-12] MEDS: diazePAM (*CRX) 10 MG TABLET PO (21:25)
[2021-03-12] MEDS: INSULIN GLARGINE (*BKC) 100 UNITS/ML 60 UNITS SUB-Q (21:25)
[2021-03-12 21:35] LABS: Glucose Point of Care 318 mg/dl (65-105)
[2021-03-12] MEDS: REMDESIVIR 100 MG/NS 250 ML 100 MG/250 ML BAG 250 MG IVPB (21:45)
--- NOTE | 2021-03-12 23:30 | PCRCNOTE ---
Window of time for administration has passed. See next scheduled administration.
[2021-03-13] VITALS (11 sets, daily range): BP systolic 131–169; BP diastolic 54–71; PULSE 67–83; RESP 12–18; TEMP 35.8–36.8; O2SAT 90–95
[2021-03-13 01:12] LABS: Glucose Point of Care 230 mg/dl (65-105)
[2021-03-13] MEDS: ALBUTEROL SULFATE NEB 2.5 MG/0.5 ML INH 5 MG INHALATION ×4 (03:25→22:46)
[2021-03-13] MEDS: IPRATROPIUM BR 0.02% INH SOLN 0.5 MG/2.5 ML VIAL INHALATION ×4 (03:25→22:46)
[2021-03-13 06:30] LABS: Hematocrit 31.2 % (37.0-47.0); Hemoglobin 10.3 g/dL (12.0-15.0); Mean Corpuscular Hemoglobin 29.8 pg (26-34); Mean Corpuscular Volume 90.2 fl (80-100); Mean Platelet Volume 11.1 fl (7.4-10.4); Platelet Count Result 277 k/mm3 (150-375); Red Blood Count 3.46 M/mm3 (4.2-5.4); Red Cell Distribution Width 13.5 % (11.5-14.5); White Blood Count 3.8 K/mm3 (4.5-10.0)
[2021-03-13 06:53] LABS: Prothrombin Time 13.1 Seconds (11.1-14.7)
[2021-03-13 08:30] LABS: Glucose Point of Care 317 mg/dl (65-105)
--- NOTE | 2021-03-13 09:10 | PM.IMPN ---
Progress Note: A&P Assessment and Plan (1) Weakness: Code(s): R53.1 - Weakness Status: Acute Assessment and Plan: Will order PT OT (2) Chronic respiratory failure with hypoxia, on home oxygen therapy: Code(s): J96.11 - Chronic respiratory failure with hypoxia; Z99.81 - Dependence on supplemental oxygen Status: Acute Assessment and Plan: On 2 L oxygen at home (3) COPD (chronic obstructive pulmonary disease): Code(s): J44.9 - Chronic obstructive pulmonary disease, unspecified Status: Acute Assessment and Plan: Continue home medications (4) COVID-19: Code(s): U07.1 - COVID-19 Status: Acute Assessment and Plan: On 2 L of oxygen which she normally uses at home chronically Chest x-ray negative for any acute abnormality With hypoxia, Will start remdesivir discussed with the patient Discussed Decadron therapy and now in agreement to accept treatment 03/13/2021 Patient responding appropriately to antiviral therapy She has declined dexamethasone due to hyperglycemia this has been discussed with her POA daughter who agrees with her decision Continue current medical therapy anticipate discharge home on Tuesday (5) Hypertension: Code(s): I10 - Essential (primary) hypertension Status: Acute Assessment and Plan: CONTINUE HOME MEDICATIONS CONTINUE TO MONITOR 03/13/2021 Hydralazine p.r.n. added to home meds (6) Diabetes: Code(s): E11.9 - Type 2 diabetes mellitus without complications Status: Acute Assessment and Plan: patient uses Lantus 70 units q.h.s. and 50 units q.a.m. in addition to NovoLog-> patient is poorly controlled the outpatient setting on this regimen with a HgbA1c 10.4 drawn during this admission [place] need diabetic [place] Uses insulin high dose at home resumed steroid induced hyperglycemia will increase insulin p.r.n. 03/13/2020 And slight increase to Lantus 80 units a.m. and 60 units p.m. to correct her hyperglycemia in the 200s and 300s Continue insulin sliding scale p.r.n. Anticipate discharge home tomorrow on regimen of insulin due to elevated hemoglobin A1c of 10.4 the time of admission. (7) Obesity (BMI 30-39.9): Code(s): E66.9 - Obesity, unspecified Status: Acute Subjective Date/time seen: 03/13/21 09:10 Spoke with patient of daughter this morning to address concerns about medical management. She is advised that her mother has been continued on all of her home anti hypertensive agents and that she is receiving not only her home dose of insulin but additional units to compensate for steroid induced hyperglycemia. Blood glucose is not at goal this morning but is not a range that could result in acidosis, coma, or . Discharge plan is for Tuesday morning after patient has received her 5th dose of remdesivir unless her oxygen resulting in the need to extend remdesivir therapy to 10 days. The daughter expressed understanding states that she would like to have a group communication with her mother this afternoon. At the time my visit patient has no complaints she is sitting up in a chair with mild cough on 2.5 L nasal cannula Exam Narrative: GENERAL: morbid obesity, not in acute distress HEENT: Nonicteric sclerae, EOMI. Oropharynx clear. Moist mucous membranes. Conjunctivae appear well perfused. LUNGS: Symmetric chest rise. no respiratory distress bilateral crackles SKIN: No rash, no excessive bruising, petechiae, or purpura. NEUROLOGIC: Cranial nerves II-XII intact, alert and oriented x 3, no gross motor deficits EXTREMITIES: no edema, cyanosis or clubbing, chronic venous stasis changes of the bilateral lower extremities PSYCH: mood and affect congruent Objective Data Vital Signs Vital Signs: Vital Signs - 24 hr 03/12/21 10:06 03/12/21 10:19 03/12/21 12:00 Temperature 97.4 F L Pulse Rate 83 76 79 Respiratory Rate 18 18 20 Blood Pressure 132/50 L Pulse Oxi
[2021-03-13] MEDS: ENOXAPARIN 40 MG/0.4 ML SYRINGE SUB-Q (09:12)
[2021-03-13] MEDS: DEXAMETHASONE 2 MG TABLET 6 MG PO (09:13)
[2021-03-13] MEDS: ASPIRIN 81 MG ENTERIC TABLET PO (09:14)
[2021-03-13] MEDS: ATORVASTATIN 40 MG TABLET PO (09:14)
[2021-03-13] MEDS: guaiFENesin 12 HR 600 MG TABCR 1200 MG PO ×2 (09:14→20:58)
[2021-03-13] MEDS: amLODIPine BESYLATE 2.5 MG TABLET PO (09:14)
[2021-03-13] MEDS: lisinopriL 20 MG TABLET 40 MG PO (09:14)
[2021-03-13] MEDS: CLOPIDOGREL BISULFATE 75 MG TABLET PO (09:14)
[2021-03-13] MEDS: hydroCHLOROthiazide 25 MG TABLET PO (09:14)
[2021-03-13] MEDS: AZITHROMYCIN 250 MG TABLET 500 MG PO (09:14)
[2021-03-13] MEDS: INSULIN ASPART (*BKC) 100 UNITS/ML SUB-Q ×3 (09:15→19:05)
[2021-03-13] MEDS: INSULIN GLARGINE (*BKC) 100 UNITS/ML 80 UNITS SUB-Q (09:18)
[2021-03-13 09:49] LABS: Alanine Aminotransferase 13 U/L (4-35); Albumin Level 2.8 g/dL (3.5-5.1); Alkaline Phosphatase 37 U/L (38-126); Anion Gap 4 mmol/L (8-16); Aspartate Amino Transferase 42 U/L (14-36); Bilirubin,Total 0.4 mg/dL (0.2-1.3); Blood Urea Nitrogen 42 mg/dL (7-17); CRP 6.3 mg/dL (<1.0); Calcium 8.9 mg/dL (8.4-10.2); Carbon Dioxide 29 mmol/L (22-30); Chloride 100 mmol/L (98-107); Estimated CRCL calculation 66 ml/min; Estimated Glomerular Filt Rate > 60; Glucose 290 mg/dL (65-110); Potassium 4.3 mmol/L (3.4-5.0); Sodium 133 mmol/L (137-145)
[2021-03-13 11:44] LABS: Glucose Point of Care 258 mg/dl (65-105)
[2021-03-13 18:34] LABS: Glucose Point of Care 279 mg/dl (65-105)
[2021-03-13] MEDS: diazePAM (*CRX) 10 MG TABLET PO (20:58)
[2021-03-13] MEDS: INSULIN GLARGINE (*BKC) 100 UNITS/ML 60 UNITS SUB-Q (21:03)
[2021-03-13 21:09] LABS: Glucose Point of Care 290 mg/dl (65-105)
[2021-03-13] MEDS: REMDESIVIR 100 MG/NS 250 ML 100 MG/250 ML BAG 250 MG IVPB (21:12)
[2021-03-14] VITALS (14 sets, daily range): BP systolic 138–148; BP diastolic 42–72; PULSE 61–79; RESP 12–20; TEMP 36.2–36.9; O2SAT 86–95
[2021-03-14] MEDS: ALBUTEROL SULFATE NEB 2.5 MG/0.5 ML INH 5 MG INHALATION ×4 (04:25→21:43)
[2021-03-14] MEDS: IPRATROPIUM BR 0.02% INH SOLN 0.5 MG/2.5 ML VIAL INHALATION ×4 (04:25→21:44)
[2021-03-14 06:21] LABS: Hematocrit 34.1 % (37.0-47.0); Hemoglobin 10.9 g/dL (12.0-15.0); Immature Granulocyte Absolute 0.03 K/mm3 (0.00-0.031); Immature Granulocyte Percent A 0.6 % (0-0.5); Lymphocytes Absolute Auto 0.67 K/mm3 (0.9-3.2); Lymphocytes Percent Auto 13.6 % (18.3-44.2); Mean Corpuscular Hemoglobin 29.5 pg (26-34); Mean Corpuscular Volume 92.4 fl (80-100); Mean Platelet Volume 10.6 fl (7.4-10.4); Monocytes Absolute Auto 0.4 K/mm3 (0.1-0.6); Monocytes Percent Auto 8.7 % (2.6-8.5); Neutrophils Absolute Auto 3.8 K/mm3 (1.3-6.7); Neutrophils Percent Auto 77.1 % (45.5-73.1); Nucleated Red Blood Cells Perc 0.4 % (0.0-0.2); Platelet Count Result 331 k/mm3 (150-375); Red Blood Count 3.69 M/mm3 (4.2-5.4); Red Cell Distribution Width 13.4 % (11.5-14.5); White Blood Count 4.9 K/mm3 (4.5-10.0)
[2021-03-14 06:31] LABS: Prothrombin Time 12.7 Seconds (11.1-14.7)
[2021-03-14 06:33] LABS: D Dimer 1.35 ug/mL (<0.48)
[2021-03-14 06:37] LABS: Alanine Aminotransferase 15 U/L (4-35); Albumin Level 2.7 g/dL (3.5-5.1); Alkaline Phosphatase 45 U/L (38-126); Anion Gap 5 mmol/L (8-16); Aspartate Amino Transferase 34 U/L (14-36); Bilirubin,Total 0.4 mg/dL (0.2-1.3); Blood Urea Nitrogen 33 mg/dL (7-17); CRP 4.1 mg/dL (<1.0); Calcium 9.3 mg/dL (8.4-10.2); Carbon Dioxide 31 mmol/L (22-30); Chloride 99 mmol/L (98-107); Estimated CRCL calculation 66 ml/min; Estimated Glomerular Filt Rate > 60; Glucose 232 mg/dL (65-110); Magnesium 1.7 mg/dL (1.6-2.3); Potassium 4.4 mmol/L (3.4-5.0); Sodium 135 mmol/L (137-145)
[2021-03-14 07:19] LABS: Thyroid Stimulating Hormone Reflex 0.531 uIU/mL (0.465-4.68)
[2021-03-14 07:55] LABS: Glucose Point of Care 210 mg/dl (65-105)
[2021-03-14] MEDS: INSULIN ASPART (*BKC) 100 UNITS/ML SUB-Q ×3 (09:11→18:20)
[2021-03-14] MEDS: ASPIRIN 81 MG ENTERIC TABLET PO (09:13)
[2021-03-14] MEDS: DEXAMETHASONE 2 MG TABLET 6 MG PO (09:13)
[2021-03-14] MEDS: amLODIPine BESYLATE 2.5 MG TABLET PO (09:13)
[2021-03-14] MEDS: lisinopriL 20 MG TABLET 40 MG PO (09:13)
[2021-03-14] MEDS: guaiFENesin 12 HR 600 MG TABCR 1200 MG PO ×2 (09:13→20:12)
[2021-03-14] MEDS: ATORVASTATIN 40 MG TABLET PO (09:13)
[2021-03-14] MEDS: ENOXAPARIN 40 MG/0.4 ML SYRINGE SUB-Q (09:14)
[2021-03-14] MEDS: BENZONATATE 100 MG CAPSULE 200 MG PO (09:14)
[2021-03-14] MEDS: CLOPIDOGREL BISULFATE 75 MG TABLET PO (09:14)
[2021-03-14] MEDS: hydroCHLOROthiazide 25 MG TABLET PO (09:14)
[2021-03-14] MEDS: AZITHROMYCIN 250 MG TABLET 500 MG PO (09:14)
[2021-03-14] MEDS: INSULIN GLARGINE (*BKC) 100 UNITS/ML 80 UNITS SUB-Q (09:18)
[2021-03-14 12:28] LABS: Glucose Point of Care 229 mg/dl (65-105)
--- NOTE | 2021-03-14 15:55 | PCPTNOTE ---
Patient declined physical therapy session this afternoon, stating she just got back into bed and got comfortable Will try again tomorrow.
--- NOTE | 2021-03-14 17:09 | PM.IMPN ---
Progress Note: A&P Assessment and Plan (1) Weakness: Code(s): R53.1 - Weakness Status: Acute Assessment and Plan: Will order PT OT (2) Chronic respiratory failure with hypoxia, on home oxygen therapy: Code(s): J96.11 - Chronic respiratory failure with hypoxia; Z99.81 - Dependence on supplemental oxygen Status: Acute Assessment and Plan: On 2 L oxygen at home (3) COPD (chronic obstructive pulmonary disease): Code(s): J44.9 - Chronic obstructive pulmonary disease, unspecified Status: Acute Assessment and Plan: Continue home medications (4) COVID-19: Code(s): U07.1 - COVID-19 Status: Acute Assessment and Plan: On 2 L of oxygen which she normally uses at home chronically Chest x-ray negative for any acute abnormality With hypoxia, Will start remdesivir discussed with the patient Discussed Decadron therapy and now in agreement to accept treatment 03/13/2021 Patient responding appropriately to antiviral therapy She has declined dexamethasone due to hyperglycemia this has been discussed with her POA daughter who agrees with her decision Continue current medical therapy anticipate discharge home on Tuesday03/14/21 inflammatory markers down tending pt remains on 3L O2 higher than normal home O2 requirements but stable pt declines steroids and further inpatient tx anticipate dc home tomorrow morning (5) Hypertension: Code(s): I10 - Essential (primary) hypertension Status: Acute Assessment and Plan: CONTINUE HOME MEDICATIONS CONTINUE TO MONITOR 03/13/2021 Hydralazine p.r.n. added to home meds (6) Diabetes: Code(s): E11.9 - Type 2 diabetes mellitus without complications Status: Acute Assessment and Plan: patient uses Lantus 70 units q.h.s. and 50 units q.a.m. in addition to NovoLog-> patient is poorly controlled the outpatient setting on this regimen with a HgbA1c 10.4 drawn during this admission will need diabetic treatment [place] Uses insulin high dose at home resumed steroid induced hyperglycemia will increase insulin p.r.n. 03/13/2020 And slight increase to Lantus 80 units a.m. and 60 units p.m. to correct her hyperglycemia in the 200s and 300s Continue insulin sliding scale p.r.n. Anticipate discharge home tomorrow on regimen of insulin due to elevated hemoglobin A1c of 10.4 the time of admission. (7) Obesity (BMI 30-39.9): Code(s): E66.9 - Obesity, unspecified Status: Acute Subjective Date/time seen: 03/14/21 17:09 pt doing ok, last dose of remdesivir tonight and then home in am Exam Narrative: GENERAL: morbid obesity, not in acute distress on 3L O2 HEENT: Nonicteric sclerae, EOMI Moist mucous membranes. Conjunctivae appear well perfused. LUNGS: Symmetric chest rise. no respiratory distress bilateral SKIN: No rash, no excessive bruising, petechiae, or purpura. NEUROLOGIC: Cranial nerves II-XII intact, alert and oriented x 3, no gross motor deficits EXTREMITIES: no edema, cyanosis or clubbing, chronic venous stasis changes of the bilateral lower extremities PSYCH: mood and affect congruent Objective Data Vital Signs Vital Signs: Vital Signs - 24 hr 03/13/21 20:00 03/14/21 00:00 03/14/21 04:00 Temperature 97.0 F L 97.5 F L 97.2 F L Pulse Rate 69 70 61 Respiratory Rate 18 18 18 Blood Pressure 143/58 H 138/42 L 145/57 H Pulse Oximetry 93 91 93 03/14/21 04:28 03/14/21 04:39 03/14/21 08:47 Temperature 98.4 F Pulse Rate 78 79 66 Respiratory Rate 18 18 12 Blood Pressure 141/62 H Pulse Oximetry 95 92 03/14/21 09:10 03/14/21 09:14 03/14/21 09:15 Temperature Pulse Rate 77 Respiratory Rate 18 Blood Pressure Pulse Oximetry 90 86 L 90 03/14/21 09:34 03/14/21 12:00 03/14/21 16:20 Temperature 97.8 F Pulse Rate 77 77 75 Respiratory Rate 20 14 18 Blood Pressure 147/66 H Pulse Oximetry 95 95 Intake/Output Intake/Output: Intake &
[2021-03-14 18:25] LABS: Glucose Point of Care 269 mg/dl (65-105)
[2021-03-14] MEDS: diazePAM (*CRX) 10 MG TABLET PO (20:13)
[2021-03-14 20:23] LABS: Glucose Point of Care 293 mg/dl (65-105)
[2021-03-14] MEDS: INSULIN GLARGINE (*BKC) 100 UNITS/ML 60 UNITS SUB-Q (20:25)
[2021-03-14] MEDS: REMDESIVIR 100 MG/NS 250 ML 100 MG/250 ML BAG 250 MG IVPB (22:31)
[2021-03-15] VITALS (8 sets, daily range): BP systolic 134–147; BP diastolic 52–86; PULSE 67–76; RESP 12–18; TEMP 36.3–36.8; O2SAT 90–98
[2021-03-15] MEDS: IPRATROPIUM BR 0.02% INH SOLN 0.5 MG/2.5 ML VIAL INHALATION ×2 (02:45→16:45)
[2021-03-15] MEDS: ALBUTEROL SULFATE NEB 2.5 MG/0.5 ML INH 5 MG INHALATION ×2 (02:45→16:45)
[2021-03-15 07:42] LABS: Hematocrit 35.4 % (37.0-47.0); Hemoglobin 11.8 g/dL (12.0-15.0); Mean Corpuscular HGB Conc 33.3 g/dl (32-36); Mean Corpuscular Hemoglobin 29.8 pg (26-34); Mean Corpuscular Volume 89.4 fl (80-100); Mean Platelet Volume 10.3 fl (7.4-10.4); Platelet Count Result 393 k/mm3 (150-375); Red Blood Count 3.96 M/mm3 (4.2-5.4); Red Cell Distribution Width 13.2 % (11.5-14.5); White Blood Count 8.7 K/mm3 (4.5-10.0)
[2021-03-15 08:46] LABS: Alanine Aminotransferase 19 U/L (4-35); Albumin Level 3.2 g/dL (3.5-5.1); Alkaline Phosphatase 48 U/L (38-126); Anion Gap 2 mmol/L (8-16); Aspartate Amino Transferase 39 U/L (14-36); Bilirubin,Total 0.4 mg/dL (0.2-1.3); Blood Urea Nitrogen 32 mg/dL (7-17); Calcium 9.4 mg/dL (8.4-10.2); Carbon Dioxide 32 mmol/L (22-30); Chloride 99 mmol/L (98-107); Estimated CRCL calculation 66 ml/min; Estimated Glomerular Filt Rate > 60; Glucose 198 mg/dL (65-110); Potassium 4.5 mmol/L (3.4-5.0); Sodium 133 mmol/L (137-145)
[2021-03-15] MEDS: amLODIPine BESYLATE 2.5 MG TABLET PO (08:52)
[2021-03-15] MEDS: CLOPIDOGREL BISULFATE 75 MG TABLET PO (08:52)
[2021-03-15] MEDS: DEXAMETHASONE 2 MG TABLET 6 MG PO (08:53)
[2021-03-15] MEDS: lisinopriL 20 MG TABLET 40 MG PO (08:53)
[2021-03-15] MEDS: AZITHROMYCIN 250 MG TABLET 500 MG PO (08:53)
[2021-03-15] MEDS: hydroCHLOROthiazide 25 MG TABLET PO (08:53)
[2021-03-15] MEDS: ATORVASTATIN 40 MG TABLET PO (08:53)
[2021-03-15] MEDS: ENOXAPARIN 40 MG/0.4 ML SYRINGE SUB-Q (08:53)
[2021-03-15] MEDS: guaiFENesin 12 HR 600 MG TABCR 1200 MG PO (08:53)
[2021-03-15] MEDS: ASPIRIN 81 MG ENTERIC TABLET PO (08:53)
[2021-03-15] MEDS: INSULIN GLARGINE (*BKC) 100 UNITS/ML 80 UNITS SUB-Q (08:54)
[2021-03-15] MEDS: BENZONATATE 100 MG CAPSULE 200 MG PO (08:57)
[2021-03-15 09:32] LABS: Glucose Point of Care 190 mg/dl (65-105)
--- NOTE | 2021-03-15 09:40 | PM.DS ---
DS: Admitting Diagnosis Admitting Diagnosis (1) Acute exacerbation of chronic obstructive pulmonary disease: Code(s): J44.1 - Chronic obstructive pulmonary disease with (acute) exacerbation Status: Acute Assessment and Plan: ADMIT TO REGULAR MEDICAL FLOOR PLACED IN ISOLATION BREATHING TREATMENTS PENDING COVID SWAB SEROLOGY PCR TREAT EMPIRICALLY WITH DOXYCYCLINE AND ZITHROMAX AWAIT CULTURES SUPPORTIVE CARE (2) Fever: Code(s): R50.9 - Fever, unspecified Status: Acute Assessment and Plan: SUPPORTIVE CARE (3) Diabetes: Code(s): E11.9 - Type 2 diabetes mellitus without complications Status: Acute Assessment and Plan: CONTINUE TO MONITOR APPARENTLY DIET CONTROLLED ONLY NOT ON MEDS INSULIN SLIDING SCALE NEEDED (4) Hypertension: Code(s): I10 - Essential (primary) hypertension Status: Acute Assessment and Plan: CONTINUE HOME MEDICATIONS CONTINUE TO MONITOR DS: Discharge Diagnosis Discharge Diagnosis (1) Obesity (BMI 30-39.9): Code(s): E66.9 - Obesity, unspecified Status: Acute (2) Weakness: Code(s): R53.1 - Weakness Status: Acute Assessment and Plan: Will order PT OT (3) Chronic respiratory failure with hypoxia, on home oxygen therapy: Code(s): J96.11 - Chronic respiratory failure with hypoxia; Z99.81 - Dependence on supplemental oxygen Status: Acute Assessment and Plan: On 2 L oxygen at home (4) COPD (chronic obstructive pulmonary disease): Code(s): J44.9 - Chronic obstructive pulmonary disease, unspecified Status: Acute Assessment and Plan: Continue home medications (5) COVID-19: Code(s): U07.1 - COVID-19 Status: Acute Assessment and Plan: 03/12/21 On 2 L of oxygen which she normally uses at home chronically Chest x-ray negative for any acute abnormality With hypoxia, Will start remdesivir discussed with the patient Discussed Decadron therapy and now in agreement to accept treatment 03/13/2021 Patient responding appropriately to antiviral therapy She has declined dexamethasone due to hyperglycemia this has been discussed with her POA daughter who agrees with her decision Continue current medical therapy anticipate discharge home on Tuesday03/14/21 inflammatory markers down tending pt remains on 3L O2 higher than normal home O2 requirements but stable pt declines steroids and further inpatient tx anticipate dc home tomorrow morning 03/15/21 pt doing ok remains on O2 (home O2 dependent) pt cont all medical therapy made available to her throughout this hospitalization despite steroid induced hyperglycemias she is discharged w Rx for dexamethasone for 4 more days her HbgA1c was > 10 at time of admission (insulin has been adjusted and pt is advised to follow up w PCP/ [facility] for ongoing care) discharge home in stable condition w [facility] (6) Hypertension: Code(s): I10 - Essential (primary) hypertension Status: Acute Assessment and Plan: CONTINUE HOME MEDICATIONS CONTINUE TO MONITOR 03/13/2021 Hydralazine p.r.n. added to home meds (7) Uncontrolled diabetes mellitus: Code(s): E11.65 - Type 2 diabetes mellitus with hyperglycemia Status: Acute DS: Summary Hospital Course Reason for hospitalization: SOB Hospital Course: 70yo F admitted w COVID PNA and acute on chronic hypoxemic respiratory failure. She was treated w Azithromycin, Remdesivir, Dexamethasone, and Oxygen via [place]. Hospitalization was complicated by steroid induced hyperglycemia superimposed on uncontrolled DM. Insulin was adjusted and BG stabliized in the 200s. At time of discharge to home Radha was in stable condition requiring 2L O2 ATC 03/12/21 On 2 L of oxygen which she normally uses at home chronically Chest x-ray negative for any acute abnormality With hypoxia, Will start remdesivir discussed with the patient Discussed Decadron therapy and
--- NOTE | 2021-03-15 11:02 | PCRCNOTE ---
Window of time for administration has passed. See next scheduled administration.
[2021-03-15 14:12] LABS: Glucose Point of Care 137 mg/dl (65-105)
== END 2021-03-15 17:45 | disposition home or self-care (01) | DRG 178 ==
LOC: ANHED 20:01 → ANH3MEDSUR 03-09 15:51
PROVIDERS: Family Medicine; Internal Medicine; Admitting Provider Internal Medicine; Emergency Provider Emergency Medicine; PCP Family Medicine; Visit Provider Hospitalist
DX: U07.1 COVID-19 (principal); J44.1 Chronic obstructive pulmonary disease with (acute) exacerbation; J44.0 Chronic obstructive pulmonary disease with (acute) lower respiratory infection; J96.11 Chronic respiratory failure with hypoxia; E11.65 Type 2 diabetes mellitus with hyperglycemia; I10 Essential (primary) hypertension; E78.5 Hyperlipidemia, unspecified; I25.10 Atherosclerotic heart disease of native coronary artery without angina pectoris; E66.01 Morbid (severe) obesity due to excess calories; Z68.39 Body mass index [BMI] 39.0-39.9, adult; Z99.81 Dependence on supplemental oxygen; Z87.891 Personal history of nicotine dependence
CPT/HCPCS: 36415; 36600; 71045; 80048; 80053; 81001; 82565; 82728; 82805; 82948; 83036; 83605; 83615; 83735; 84145; 84443; 84460; 85025; 85027; 85380; 85610; 86140; 87040; 94640; 96361; 96365; 96366; 96367; 96372; 96375; 97110; 97161; 97165; 97530; 97535; 99285; A9270; C9803; G0378; J0696; J1100; J1650; J1815; J7120; J8540; U0003; U0005

== ENCOUNTER 2022-01-30 10:50 | Inpatient (IN) | payer MEDICARE, SELFPAY ==
[2022-01-30] VITALS (12 sets, daily range): BP systolic 127–173; BP diastolic 49–64; PULSE 50–81; RESP 16–24; TEMP 36.9–37.8; O2SAT 98–100; BMI 38.9
--- NOTE | ~2022-01-30 | MR_ITS ---
EXAMINATION: MR foot RT wo con DATE: 02/02/2022 07:13 INDICATION: Osteomyelitis TECHNIQUE: Magnetic resonance imaging (MRI) of the right fore/mid foot was performed without intraven ous contrast. Sequences included sagittal T1-weighted FSE, sagittal fluid sensitive FSE STIR, coronal PD-weighted FS FSE, coronal T1-weighted FSE, axial PD-weighted FS FSE, and axial PD-weighted FSE. COMPARISON: Right foot radiographs dated 01/31/2022 FINDINGS: Prominent valgus angulation at the first-third metatarsophalangeal joints. Mild hypertrophic osteophy bryan along the medial head of the first metatarsal consistent with a bunion. Osteoarthritis related mi ld subarticular edema and at the heads of the first and second metatarsals and at the second, fourth and fifth tarsal metatarsal joints. Marrow signal is normal throughout with no fracture or pathologic marrow replacing process. Moderate osteoarthritis of the first and second tarsal metatarsal joints. Mild osteoarthritis at the remaining metatarsophalangeal joints and multiple tarsometatarsal and inte rphalangeal joints. No joint effusions. Lisfranc ligament complex is normal. There is thickening and surrounding edema of the medial collateral ligament complex at the first and second metatarsophalange al joints likely represent scarring related to chronic degeneration or sprains. Laxity due to the maris lux valgus at the lateral collateral ligament complex at the first metatarsophalangeal joint. Soft ti ssue swelling throughout the right mid and forefoot greatest over the dorsum of the forefoot. There i s also mild fatty atrophy and mild increased fluid signal throughout the intrinsic musculature of the foot suggestive of acute on chronic innervation changes likely related to diabetic neuropathy. IMPRESSION: 1. Mild to moderate polyarticular osteoarthritis at the right mid and forefoot. No osteomyelitis or o ther acute osseous abnormality. Reviewed, dictated and finalized at location A. IMPRESSION: 1. Mild to moderate polyarticular osteoarthritis at the right mid and forefoot. No osteomyelitis or other acute osseous abnormality.
--- NOTE | ~2022-01-30 | XR_ITS ---
XR chest 2V DATE: 01/30/2022 11:36 INDICATION: Weakness, shaking TECHNIQUE: AP and lateral views COMPARISON: 03/12/2021 portable AP chest FINDINGS: Cardiomegaly. Aortic arch calcification. There is mild pulmonary vascular prominence. Mild patchy bibasilar infiltrate and/atelectasis. Osteopenia. IMPRESSION: Cardiomegaly and borderline pulmonary vascular congestion Patchy bilateral basilar infiltrate and/atelectasis Reviewed, dictated and finalized at location A.
--- NOTE | ~2022-01-30 | XR_ITS ---
XR foot RT min 3V DATE: 01/30/2022 11:37 INDICATION: Foot pain. Plantar laceration, distal first metatarsal area one week ago TECHNIQUE: 3 views COMPARISON: None FINDINGS: Osteopenia. Prominent posterior calcaneal enthesopathy. Prominent hallux valgus and bunion deformity. Osteoarthritic change at the first metatarsophalangeal joint. No radiopaque soft tissue foreign body or subcutaneous emphysema is noted. No fracture, dislocation, periosteal reaction or bone destruction. IMPRESSION: No radiopaque foreign body, fracture or dislocation Posterior calcaneal enthesopathy Hallux valgus and bunion deformity Osteoarthritis at first metatarsophalangeal joint Reviewed, dictated and finalized at location A.
--- NOTE | ~2022-01-30 | US_ITS ---
EXAMINATION: US arterial ankle brachial ind DATE: 02/02/2022 07:36 INDICATION: Venous stasis dermatitis TECHNIQUE: Segmental pressures and plethysmographic and Doppler waveforms of the brachial and lower e xtremity arteries were obtained. COMPARISON: None. FINDINGS: Right and left brachial artery pressures of 191 mm Hg and 186 mm Hg, respectively, are concordant (no rmal difference <= 30 mmHg). The right ankle-brachial index (ELOISA) is 0.81 (normal >= 0.9-1.0). The right great toe-brachial index (TBI) is 0.68 (normal >= 0.65). Arterial Doppler waveforms are biphasic with brisk systolic upstrokes at both right posterior tibial and dorsalis pedis arteries. The left ELOISA is 0.91. The left TBI is 0.71. Arterial Doppler waveforms are biphasic with brisk systol ic upstrokes at both left posterior tibial and dorsalis pedis arteries. IMPRESSION: 1. Mild arterial occlusive disease with normal bilateral ABIs but mildly decreased right and borderli ne left ABIs. 2. Marked hypertension with brachial artery pressures of 191 and 186 mmHg on the right and left respe ctively. Reviewed, dictated and finalized at location A. IMPRESSION: 1. Mild arterial occlusive disease with normal bilateral ABIs but mildly decrea sed right and borderline left ABIs. 2. Marked hypertension with brachial artery pressures of 191 and 186 mmHg on th e right and left respectively.
--- NOTE | 2022-01-30 10:57 | ED.GENADULT ---
HPI - General Adult General Chief complaint: Abdominal Pain Stated complaint: n/v since 0900, wound to foot x 1 week Time Seen by Provider: 01/30/22 10:51 History of Present Illness HPI narrative: pt comes in b/c sitting drinking tea and sudden onset feeling weak and shaking, pt says about a week ago cut right foot on glass, her hook tender started her on abx but she thinks it's worse and having something to do wiht how she feel, mild dry heaves today as well no fever check at home no uri/v/d/urine chagnes/cp/sob/aguillon/loc/truama/abd pain/other neuro chagnes or med cahgens no sick contacts no uri no covid or flu vaccine Related Data Home Medications Medication Instructions Recorded Confirmed aspirin 81 mg tablet,delayed 81 mg PO DAILY 03/08/21 03/08/21 release atorvastatin 40 mg tablet 40 mg PO DAILY 03/08/21 03/08/21 [id number] 1 tab-cap PO DAILY 03/08/21 03/08/21 clopidogrel 75 mg tablet 75 mg PO DAILY 03/08/21 03/08/21 diazepam 10 mg tablet 10 mg PO HS 03/08/21 03/08/21 hydrochlorothiazide 25 mg tablet 25 mg PO DAILY 03/08/21 03/08/21 hydrocodone 10 mg-acetaminophen 1 tablet PO PRN 03/08/21 03/08/21 325 mg tablet lisinopril 40 mg tablet 40 mg PO DAILY 03/08/21 03/08/21 Novolog U-100 Insulin aspart See Rx Instructions .Route .COMPLEX 03/09/21 03/09/21 Allergies Allergy/AdvReac Type Severity Reaction Status Date / Time latex Allergy Unknown Verified 03/11/21 09:18 Penicillins Allergy Unknown HIVES Verified 03/11/21 09:18 Sulfa (Sulfonamide Allergy Unknown REDNESS/ALEXANDRA Verified 03/11/21 09:18 Antibiotics) H Review of Systems Constitutional: Comments: 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 ENT: Denies rhinorrhea, congestion, sore throat, or otalgia. CARDIOVASCULAR: Denies chest pain, palpitations, or edema. RESPIRATORY: Denies cough or dyspnea. GASTROINTESTINAL: Denies abdominal pain, nausea, vomiting, or diarrhea. GENITOURINARY: Denies dysuria or hematuria. SKIN: Denies rash or itching. MUSCULOSKELETAL: Denies back pain, joint pain, or myalgia. NEUROLOGIC: Denies headache, numbness, PSYCHIATRIC: Denies anxiety or depression. [facility] Family History Family History (System 03/11/21 @ 09:18 by Mauro Bai) Sibling Family history of obesity Family history of migraine headaches Hypertension Asthma Family history of diabetes mellitus in first degree relative Mother Family history of malignant neoplasm of brain Other Family history of alcoholism Social History Social History (System 03/11/21 @ 09:18 by Mauro Bai) Smoking status: Former smoker Tobacco type: cigarettes Second hand tobacco smoke exposure: No Smoking end date: 08/01/82 Alcohol intake: never Substance use: never Substance use type: does not use Gender identity (if verbalized by the patient): Female Spiritual care concerns: No Exam Const: Other: APPEARANCE: Well appearing, no pain in distress, well-nourished. Head normocephalic atraumtaic. EYES: PERRLA/EOMI, conjunctivae very clear. NOSE: Normal no drainage EARS:TMS clear [place], with good light reflex. THROAT: Pharynx clear, no exudate. NECK: Supple. No adenopathy, no masses. RESPIRATORY: Airway patent, repsirations nonlabored. Clear to auscultation bilaterally, no rales, rhonchi, wheezing. CARDIOVASCULAR: Regular rate and rhythm without murmurs rubs or gallops. ABDOMINAL: Soft, nontender, nondistended, no hepatosplenomegally MUSCULOSKELETAl: Moves all extremities. Strenght/ROM intact, No edema, No calf tenderness. base right foot mild erythema and tend over 1cm superfical lac base mct plantar surface no s/s abscess necrosis or crepitus or d/c NEURO: Alert. Cranial nerves II through XII intact. Good gait. Good coordination SKIN:: Warm, dry. Normal Color PSYCHIATRIC: Normal affect/mood, normal interaction with parents. Course Vital Signs Vital signs:
[2022-01-30 10:58] LABS: Glucose Point of Care 236 mg/dl (65-105)
--- NOTE | 2022-01-30 11:01 | ECG_ITS ---
Measurements Intervals [place] Rate: 61 P: [place]: 0 QRS: -9 QRSD: 146 T: 138 QT: 421 QTc: 426 Interpretive Statements SINUS BRADYCARDIA ATRIAL COUPLET AND ATRIAL PREMATURE COMPLEXES LEFT BUNDLE BRANCH BLOCK BASELINE ARTIFACT- I, II, III, AVR, AVL, AVF ABNORMAL ECG Electronically Signed On 01-30-2022 12:02:00 CDT by Guzman De D.O.
[2022-01-30 11:36] LABS: Basophils Absolute Auto 0.1 K/mm3 (0.0-0.1); Basophils Percent Auto 0.4 % (0.2-1.2); Eosinophils Absolute Auto 0.2 K/mm3 (0-0.3); Eosinophils Percent Auto 0.8 % (0-4.4); Hematocrit 36.3 % (37.0-47.0); Hemoglobin 11.7 g/dL (12.0-15.0); Immature Granulocyte Percent A 0.5 % (0-0.5); Lymphocytes Percent Auto 5.7 % (18.3-44.2); Mean Corpuscular HGB Conc 32.2 g/dl (32-36); Mean Corpuscular Hemoglobin 31.1 pg (26-34); Mean Corpuscular Volume 96.5 fl (80-100); Mean Platelet Volume 10.7 fl (7.4-10.4); Monocytes Absolute Auto 1.2 K/mm3 (0.1-0.6); Monocytes Percent Auto 6.2 % (2.6-8.5); Neutrophils Absolute Auto 16.8 K/mm3 (1.3-6.7); Neutrophils Percent Auto 86.4 % (45.5-73.1); Platelet Count Result 227 k/mm3 (150-375); Red Blood Count 3.76 M/mm3 (4.2-5.4); Red Cell Distribution Width 12.8 % (11.5-14.5); White Blood Count 19.5 K/mm3 (4.5-10.0)
[2022-01-30 11:40] LABS: Glucose Point of Care 239 mg/dl (65-105)
[2022-01-30 11:46] LABS: Alanine Aminotransferase 11 U/L (6-35); Albumin Level 3.9 g/dL (3.5-5.1); Alkaline Phosphatase 71 U/L (38-126); Anion Gap 7 mmol/L (8-16); Aspartate Amino Transferase 19 U/L (14-36); Bilirubin,Total 0.4 mg/dL (0.2-1.3); Blood Urea Nitrogen 37 mg/dL (7-17); CRP 1.3 mg/dL (<1.0); Calcium 9.1 mg/dL (8.4-10.2); Carbon Dioxide 32 mmol/L (22-30); Chloride 100 mmol/L (98-107); Estimated Glomerular Filt Rate 49; Glucose 236 mg/dL (65-110); Lipase 37 U/L (23-300); Potassium 4.4 mmol/L (3.4-5.0); Sodium 139 mmol/L (137-145); Uric Acid 7.8 mg/dL (2.5-7.5)
[2022-01-30 11:53] LABS: Troponin I < 0.012 ng/mL (0.000-0.034)
[2022-01-30] MEDS: ASPIRIN 81 MG CHEWABLE TABLET 324 MG PO (11:54)
[2022-01-30 12:02] LABS: Lactic Acid Reflex 1.9 mmol/L (0.7-2.0)
[2022-01-30 12:05] LABS: INR 1.1; Partial Thromboplastin Time 23.4 SECONDS (22.3-36.8); Prothrombin Time 13.3 Seconds (11.1-14.7)
[2022-01-30 12:11] LABS: SARS-CoV-2 RNA PCR Negative
[2022-01-30 12:17] LABS: NT Pro B Type Natriuretic Pept 118 pg/mL (5-100)
--- NOTE | 2022-01-30 12:26 | PC.NURSE ---
Urine collect via bedpan.
[2022-01-30 12:36] LABS: Appearance Urine Clear (Clear); Bilirubin Urine Negative (Negative); Blood Urine 1+ (Negative); Color Urine Yellow (Yellow); Glucose Urine UA Trace mg/dL (Negative); Ketones Urine Negative (Negative); Leukocyte Esterase Ur Trace LEU/UL (Negative); Nitrate Urine Negative (Negative); Protein Urine 2+ mg/dL (Negative); Urobilinogen Urine 0.2 mg/dL (<2.0)
[2022-01-30 12:42] LABS: Bacteria Urine Trace /hpf; Squamous Epithelial Cell Urine Occasional /hpf (Few)
[2022-01-30 12:49] LABS: Add Urine Microscopic? YES
[2022-01-30 13:28] LABS: Glucose Point of Care 267 mg/dl (65-105)
--- NOTE | 2022-01-30 13:29 | PM.IMHP ---
H&P: HPI History of Present Illness Date/Time: Patient was placed observation status for expected length of stay less than 23 hours for management, will plan to re-evaluate tomorrow for improvement. 01/30/22 13:29 Chief Complaint: Weakness Narrative: Ms. Ortiz is a 71-year-old female who presented to emergency room with multiple medical complaints. Patient states she was outside this morning with her neighbors drinking green tea and started feeling very shaky. Patient states that she then went inside and was mildly nauseous and checked her blood glucose level. Patient states that her blood glucose level was elevated she did take some fast acting and long acting insulin. Patient then called EMS and was transported to the emergency room. Upon evaluation emergency room patient was noted to have an elevated blood glucose level. Patient also stated that she had a piece of glass stuck in her right foot recently and she did see a electrical transmission engineer for this and has been on antibiotic therapy, but she does not feel the antibiotics are working. Patient also had EKG performed and it did show atrial fibrillation with a left bundle branch block. Patient states she is unsure if she has had this in the past. Patient states she did have a cardiac workup performed at [facility]. Patient states she has undergone cardiac catheterization in the past which showed 30% stenosis of her coronary arteries. Patient states that she was then placed on atorvastatin. Patient states she has had a murmur since and she has been told she has a hole in heart then never closed at . Patient denies any chest pain, abnormal shortness of breath, lightheadedness, dizziness, syncopal, or near syncopal episodes. Patient states she does have chronic dyspnea on exertion because of her COPD. Patient states that she is supposed to wearing oxygen at 2 L per nasal cannula at all times, but she only wears it at night. Patient denies any new cough or sputum production. Patient states she no longer has any nausea and has had no vomiting. Patient denies any palpitations today, but states she will occasionally have a ?fluttering? in her chest. Patient states that she cannot associate this fluttering with any activity and just comes and goes. Patient states she does have a history of renal calculi status post lithotripsy, COPD, hypertension, mild nonobstructive coronary artery disease, dyslipidemia, diabetes mellitus, and chronic oxygen use that she has not been compliant with. Review of Systems Review of Systems: A 12 point review of systems was completed patient all pertinent positive and negative per HPI the remainder are unremarkable. [facility] Past Medical History Medical History (Updated 01/30/22 @ 13:50 by Janette Hamlin APRN) Chronic respiratory failure with hypoxia, on home oxygen therapy COPD (chronic obstructive pulmonary disease) Diabetes Hypertension Mild coronary artery disease Obesity (BMI 30-39.9) Uncontrolled diabetes mellitus HgA1c > 10 on admission Surgical History Surgical History (Updated 01/30/22 @ 13:38 by Janette Hamlin APRN) History of lithotripsy Family History Family History (System 03/11/21 @ 09:18 by Mauro Bai) Sibling Family history of obesity Family history of migraine headaches Hypertension Asthma Family history of diabetes mellitus in first degree relative Mother Family history of malignant neoplasm of brain Other Family history of alcoholism Social History Social History (System 03/11/21 @ 09:18 by Mauro Bai) Smoking status: Former smoker Tobacco type: cigarettes Second hand tobacco smoke exposure: No Smoking end date: 08/01/82 Alcohol intake: never Substance use: never Substance use type: does not use Gender identity (if verbalized by the patient): Female Spiritual care concerns: No Meds Home Medications and Allergies Home Medications Medication Instructions Record
[2022-01-30] MEDS: ENOXAPARIN 120 MG/0.8 ML SYRINGE 105 MG SUB-Q ×2 (14:23→21:10)
[2022-01-30 14:31] LABS: Glucose Point of Care 283 mg/dl (65-105)
--- NOTE | 2022-01-30 15:00 | ECG_ITS ---
Measurements Intervals [place] Rate: 78 P: 70 [place]: 271 QRS: 7 QRSD: 146 T: 69 QT: 415 QTc: 474 Interpretive Statements SINUS RHYTHM WITH FIRST DEGREE AV BLOCK LEFT BUNDLE BRANCH BLOCK ABNORMAL ECG Electronically Signed On 01-30-2022 18:23:56 CDT by Guzman De D.O.
[2022-01-30 16:13] LABS: Glucose Point of Care 335 mg/dl (65-105)
--- NOTE | 2022-01-30 16:19 | ADMGEN ---
This patient, Radha Ortiz, was admitted to IMU Room 200-01. Patient/family oriented to hospital policies and general routines including ID bracelet, bed and alarms, visiting hours, pain management, procedures, bathroom and other care routines, personal items, smoking policy, room service/diet, and visiting hours. Information on how to activate the Rapid Response Team has been discussed. Patient/Family are encouraged to report perceived risks to care and to ask questions if they do not understand what they are told or what they should do.
[2022-01-30] MEDS: INSULIN ASPART (*BKC) 100 UNITS/ML SUB-Q (16:28)
[2022-01-30 20:52] LABS: Glucose Point of Care 253 mg/dl (65-105)
[2022-01-31] VITALS (17 sets, daily range): BP systolic 113–162; BP diastolic 44–71; PULSE 64–73; RESP 14–22; TEMP 36.4–37; O2SAT 96–100
[2022-01-31 00:04] LABS: Glucose Point of Care 209 mg/dl (65-105)
[2022-01-31] MEDS: INSULIN GLARGINE (*BKC) 100 UNITS/ML 60 UNITS SUB-Q ×2 (00:13→21:18)
[2022-01-31 05:18] LABS: Anion Gap 2 mmol/L (8-16); Blood Urea Nitrogen 35 mg/dL (7-17); Calcium 8.5 mg/dL (8.4-10.2); Carbon Dioxide 33 mmol/L (22-30); Chloride 100 mmol/L (98-107); Estimated CRCL calculation 44 ml/min; Estimated Glomerular Filt Rate 44; Glucose 165 mg/dL (65-110); Magnesium 1.9 mg/dL (1.6-2.3); Potassium 4.1 mmol/L (3.4-5.0); Sodium 135 mmol/L (137-145)
[2022-01-31 07:57] LABS: Glucose Point of Care 137 mg/dl (65-105)
--- NOTE | 2022-01-31 08:01 | PM.IMPN ---
Progress Note: A&P Assessment and Plan (1) Pneumonia: Code(s): J18.9 - Pneumonia, unspecified organism Status: Acute Assessment and Plan: Monitor vital signs, I&Os, neuro status and patient is a fall risk Follow WBC, serum electrolytes, temperature curves and cultures Send sputum cultures Obtain Pneumococcal antigen urine and legionella pneumophila Ag Ur Oxygen via NC; wean as tolerated. Keep SpO2 greater than 88% Levaquin 750 mg IVP Q 48 hours DuoNeb q6H and Albuterol q2H PRN Patient is supposed to wear 2 L of oxygen per nasal cannula at all times, this isn't order provided by her PCP. Patient has only been wearing her oxygen at night. Will continue to educate. P.r.n. Tylenol, Zofran, and melatonin (2) Left bundle branch block: Code(s): I44.7 - Left bundle-branch block, unspecified Status: Acute Assessment and Plan: Attempt to obtain records from [facility] in [place], Patient reports a recent cardiac catheterization. Patient reports that the cardiac catheterization did show 30% stenosis to her vessels and she was placed on a statin at that time. Monitor vital signs, I&Os, neuro status, patient is a fall risk and patient is a bleeding risk Monitor , Serum electrolytes, and cbc Keep serum potassium >4 and keep magnesium >2 Monitor anticoagulation therapy Consult Cardiology for further management, appreciate assistance and recommendations Patient is currently not on a beta-alfie. Continue lisinopril Lovenox at 1 mg per kg, therapeutic dosing. November decalate- pending repeat EKG Obtain echocardiogram patient an EKG performed in the emergency department which revealed normal sinus rhythm with PACs. patient does have a left bundle branch block. Repeat EKG (3) Infection of right foot: Code(s): L08.9 - Local infection of the skin and subcutaneous tissue, unspecified Status: Acute Assessment and Plan: Monitor I&Os, vital signs, neuro status and patient is a fall risk Monitor serum electrolytes, CBC, WBC, temperature curve and follow cultures IV Vancomycin, consult pharmacy to dose, send Vancomycin trough levels before 4th dose, and Levaquin due to the patient's penicillin allergies minimal erythema noted at the incision site, no purulence drainage noted. Patient denies drainage home. P.r.n. Tylenol, Zofran, and melatonin (4) Diabetes: Code(s): E11.9 - Type 2 diabetes mellitus without complications Status: Acute Assessment and Plan: Insulin Lispro sliding scale, Accu-checks qAc and HS and Hold oral hypoglycemics HgbA1c 8.9% (5) Hypertension: Code(s): I10 - Essential (primary) hypertension Status: Acute Assessment and Plan: Will resume patient's home medications once verified home medication list and adjust medications accordingly for optimal blood pressure control. (6) Abnormal finding on urinalysis: Code(s): R82.90 - Unspecified abnormal findings in urine Status: Acute Assessment and Plan: CBC, CMP, UA, reviewed Obtain urine culture if needed Follow temp curve, cultures, WBC, and VS Levofloxacin 750 IV daily Subjective Date/time seen: 01/31/22 08:01 Patient is alert and oriented x4. Patient's EKG revealed normal sinus rhythm, I do not believe she had episodes of AFib at home. EKG revealed normal sinus rhythm with frequent PACs. Patient did have an abnormal UA , possible infection and cellulitis to the lower left great toe and elevated WBC. She is also being treated for COPD exacerbation. Patient was placed on Levaquin and vancomycin. She is also receiving breathing treatments. Patient is supposed to wear 2 L of oxygen per nasal cannula chronically however the patient is noncompliant with this at home. Patient reports she only wears oxygen during the night. She has not had significant distress during the day without her oxygen reportedly. Patient was again advised and educated on oxyge
--- NOTE | 2022-01-31 08:15 | ECG_ITS ---
Measurements Intervals Ulysses Rate: 67 P: -48 NJ: 224 QRS: -18 QRSD: 152 T: 120 QT: 457 QTc: 484 Interpretive Statements SINUS RHYTHM WITH FIRST DEGREE AV BLOCK LEFT BUNDLE BRANCH BLOCK ABNORMAL ECG Electronically Signed On 01-31-2022 17:13:37 CDT by Guzman De D.O.
[2022-01-31 08:32] LABS: Hemoglobin A1C 8.9 % (<5.7)
[2022-01-31 08:55] LABS: CRP 13.9 mg/dL (<1.0)
--- NOTE | 2022-01-31 09:42 | PCCCNOTE ---
On 01/31/22, the student, [Charu Ho], provided care and completed [facility] documentation on this patient. I have reviewed the student's documentation and agree with the findings.
[2022-01-31] MEDS: CLOPIDOGREL BISULFATE 75 MG TABLET PO (09:57)
[2022-01-31] MEDS: CYANOCOBALAMIN 500 MCG TABLET PO (09:57)
[2022-01-31] MEDS: ASPIRIN 81 MG ENTERIC TABLET PO (09:57)
[2022-01-31] MEDS: lisinopriL 20 MG TABLET 40 MG PO (09:57)
[2022-01-31] MEDS: SPIRONOLACTONE 25 MG TABLET PO (09:57)
[2022-01-31] MEDS: ATORVASTATIN 40 MG TABLET PO (09:57)
[2022-01-31] MEDS: ENOXAPARIN 120 MG/0.8 ML SYRINGE 105 MG SUB-Q ×2 (09:57→21:05)
[2022-01-31 12:13] LABS: Glucose Point of Care 226 mg/dl (65-105)
[2022-01-31] MEDS: INSULIN ASPART (*BKC) 100 UNITS/ML SUB-Q ×2 (12:44→16:35)
--- NOTE | 2022-01-31 12:49 | PM.CNCAR ---
Assessment and Plan Assessment and plan (1) Left bundle branch block: Code(s): I44.7 - Left bundle-branch block, unspecified Status: Acute Plan LBBB likely chronic since patient has no chest pain and cardiac enzymes negative Sinus bradycardia and first degree HB Recent cardiac work up in OSH but records not available HTN controlled rt foot wounds DM type 2 Plan avoid AV jennifer blocking agents ELOISA rule out LE ischemia get records from OSH History of Present Illness History of Present Illness Consult date/time: 01/31/22 12:49 Reason For Visit: New onset afib, copd exacerbation. R foot infectio Narrative: Patient presented to hospital with feeling shaky with chills associated with nausea. She was noted ot have rt foor infection after trauma recently. He was noted to have LBBB. 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 She had Hx of COPD and has chronic dyspnea that is not worse from baseline. On admission EKG showed sinus bradycardia and sinus rhythm with PACs and LBBB. She denied any chest pain or worsening SOB. She had cath in OSH that shows no need for intervention. Records not available. Review of Systems Review of Systems: All systems reviewed & are unremarkable except as noted in HPI and below PMFSH Past Medical History Medical History (Updated 01/31/22 @ 08:09 by Vera Chaparro APRN) Chronic respiratory failure with hypoxia, on home oxygen therapy COPD (chronic obstructive pulmonary disease) Diabetes Hypertension Mild coronary artery disease Obesity (BMI 30-39.9) Uncontrolled diabetes mellitus HgA1c > 10 on admission Surgical History Surgical History (Updated 01/30/22 @ 13:38 by Janette Hamlin APRN) History of lithotripsy Family History Family History Sibling Family history of obesity Family history of migraine headaches Hypertension Asthma Family history of diabetes mellitus in first degree relative Mother Family history of malignant neoplasm of brain Other Family history of alcoholism Social History Social History (System 03/11/21 @ 09:18 by Mauro Bai) Smoking status: Former smoker Tobacco type: cigarettes Second hand tobacco smoke exposure: No Alcohol intake: never Substance use: never Substance use type: does not use Gender identity (if verbalized by the patient): Female Spiritual care concerns: No Meds Home Medications and Allergies Home Medications Medication Instructions Recorded Confirmed Type aspirin 81 mg tablet,delayed 81 mg PO DAILY 03/08/21 01/30/22 History release atorvastatin 40 mg tablet 40 mg PO DAILY 03/08/21 01/30/22 History clopidogrel 75 mg tablet 75 mg PO DAILY 03/08/21 01/30/22 History cyanocobalamin (vitamin B-12) 500 500 mcg PO DAILY 01/30/22 01/30/22 History mcg lozenges (Vitamin B-12) diazepam 10 mg tablet 10 mg PO HS 01/30/22 01/30/22 History doxycycline hyclate 100 mg tablet 100 mg PO BID 01/30/22 01/30/22 History hydrocodone 5 mg-acetaminophen 325 1 tablet Q6H 01/30/22 01/30/22 History mg tablet insulin glargine 100 unit/mL 30 unit subcut QAM 01/30/22 01/30/22 History subcutaneous solution (Lantus U-100 Insulin) insulin glargine 100 unit/mL 60 unit subcut HS 01/30/22 01/30/22 History subcutaneous solution (Lantus U-100 Insulin) insulin lispro 100 unit/mL See Rx Instructions .Route .COMPLEX 01/30/22 01/30/22 History subcutaneous pen (Humalog KwikPen (U-100) Insulin) lisinopril 40 mg tablet 40 mg PO DAILY 01/30/22 01/30/22 History spironolactone 25 mg tablet 25 mg PO DAILY 01/30/22 01/30/22 History Allergies Allergy/AdvReac Type Severity Reaction Status Date / Time latex Allergy Unknown Verified 03/11/21 09:18 Penicillins Allergy Unknown HIVES Verified 03/11/21 09:18 Sulfa (Sulfonamide Allergy Unknown REDNESS/ALEXANDRA Verified 03/11/21 09:18 Antibiotics) H Vital Si
[2022-01-31] MEDS: ALBUTEROL SULFATE NEB 2.5 MG/3 ML INH INHALATION (13:17)
[2022-01-31] MEDS: IPRATROPIUM BR 0.02% INH SOLN 0.5 MG/2.5 ML VIAL INHALATION ×2 (13:17→21:20)
--- NOTE | 2022-01-31 15:06 | PC.NURSE ---
This patient, Radha Ortiz, was transferred to [facility] on 01/31/22 at 1507. Personal belongings sent with patient. Report given to SHAUNNA QUIROGA. Appropriate documentation sent with patient. Family notified.
[2022-01-31 16:23] LABS: Glucose Point of Care 229 mg/dl (65-105)
[2022-01-31] MEDS: MELATONIN 5 MG TABLET PO (21:05)
[2022-01-31] MEDS: diazePAM (*CRX) 5 MG TABLET 10 MG PO (21:25)
[2022-01-31 21:36] LABS: Glucose Point of Care 247 mg/dl (65-105)
[2022-02-01] VITALS (19 sets, daily range): BP systolic 118–141; BP diastolic 46–52; PULSE 30–72; RESP 14–18; TEMP 36.4–36.6; O2SAT 94–100
[2022-02-01 05:50] LABS: Basophils Absolute Auto 0.1 K/mm3 (0.0-0.1); Basophils Percent Auto 0.7 % (0.2-1.2); Eosinophils Absolute Auto 0.1 K/mm3 (0-0.3); Eosinophils Percent Auto 1.3 % (0-4.4); Hemoglobin 9.9 g/dL (12.0-15.0); Immature Granulocyte Absolute 0.02 K/mm3 (0.00-0.031); Immature Granulocyte Percent A 0.3 % (0-0.5); Lymphocytes Absolute Auto 1.73 K/mm3 (0.9-3.2); Lymphocytes Percent Auto 24.4 % (18.3-44.2); Mean Corpuscular Hemoglobin 31.3 pg (26-34); Mean Corpuscular Volume 94.9 fl (80-100); Mean Platelet Volume 10.9 fl (7.4-10.4); Monocytes Absolute Auto 0.9 K/mm3 (0.1-0.6); Monocytes Percent Auto 13.3 % (2.6-8.5); Neutrophils Absolute Auto 4.3 K/mm3 (1.3-6.7); Platelet Count Result 176 k/mm3 (150-375); Red Blood Count 3.16 M/mm3 (4.2-5.4); Red Cell Distribution Width 12.7 % (11.5-14.5); White Blood Count 7.1 K/mm3 (4.5-10.0)
[2022-02-01 06:02] LABS: Alanine Aminotransferase 7 U/L (6-35); Albumin Level 3.1 g/dL (3.5-5.1); Alkaline Phosphatase 55 U/L (38-126); Anion Gap 2 mmol/L (8-16); Aspartate Amino Transferase 18 U/L (14-36); Bilirubin,Total 0.3 mg/dL (0.2-1.3); Blood Urea Nitrogen 34 mg/dL (7-17); Calcium 8.2 mg/dL (8.4-10.2); Carbon Dioxide 33 mmol/L (22-30); Chloride 99 mmol/L (98-107); Estimated CRCL calculation 53 ml/min; Estimated Glomerular Filt Rate 55; Glucose 185 mg/dL (65-110); Lactic Acid Reflex 0.7 mmol/L (0.7-2.0); Magnesium 2.1 mg/dL (1.6-2.3); Potassium 3.8 mmol/L (3.4-5.0); Sodium 134 mmol/L (137-145)
--- NOTE | 2022-02-01 06:56 | PM.IMPN ---
Progress Note: A&P Assessment and Plan (1) Pneumonia: Code(s): J18.9 - Pneumonia, unspecified organism Status: Acute Assessment and Plan: Monitor vital signs, I&Os, neuro status and patient is a fall risk Follow WBC, serum electrolytes, temp Curve and cultures Pending Pneumococcal antigen urine and legionella pneumophila Ag Ur Oxygen via NC; wean as tolerated. Keep SpO2 greater than 88% Levaquin 750 mg IVP Q 48 hours DuoNeb q6H and Albuterol q2H PRN Patient is supposed to wear 2 L of oxygen per nasal cannula at all times, this isn't order provided by her PCP. Patient has only been wearing her oxygen at night. Will continue to educate. P.r.n. Tylenol, Zofran, and melatonin (2) Left bundle branch block: Code(s): I44.7 - Left bundle-branch block, unspecified Status: Acute Assessment and Plan: Attempt to obtain records from [facility] in [place], Patient reports a recent cardiac catheterization. Patient reports that the cardiac catheterization did show 30% stenosis to her vessels and she was placed on a statin at that time. Monitor vital signs, I&Os, neuro status, patient is a fall risk and patient is a bleeding risk Monitor , Serum electrolytes, and cbc Keep serum potassium >4 and keep magnesium >2 Consult Cardiology for further management, appreciate assistance and recommendations Patient is currently not on a beta-alfie, avoid usage. Continue lisinopril de-escalated Lovenox injections to DVT prophylaxis. 40 mg daily Obtain echocardiogram patient an EKG performed in the emergency department which revealed normal sinus rhythm with PACs. patient does have a left bundle branch block. Repeat EKG (3) Infection of right foot: Code(s): L08.9 - Local infection of the skin and subcutaneous tissue, unspecified Status: Acute Assessment and Plan: Monitor I&Os, vital signs, neuro status and patient is a fall risk Monitor serum electrolytes, CBC, WBC, temperature curve and follow cultures IV Vancomycin, consult pharmacy to dose, send Vancomycin trough levels before 4th dose, and Levaquin due to the patient's penicillin allergies minimal erythema noted at the incision site, no purulence drainage noted. Patient denies drainage home. right foot x-ray did not reveal osteomyelitis, obtain MRI of the right foot for further evaluation. Patient did have positive blood cultures x2 for group B strep. repeat blood cultures, obtain wound culture. Consult Wound Care for further management evaluation P.r.n. Tylenol, Zofran, and melatonin (4) Diabetes: Code(s): E11.9 - Type 2 diabetes mellitus without complications Status: Acute Assessment and Plan: Insulin Lispro sliding scale, Accu-checks qAc and HS and Hold oral hypoglycemics HgbA1c 8.9% (5) Hypertension: Code(s): I10 - Essential (primary) hypertension Status: Acute Assessment and Plan: Will resume patient's home medications once verified home medication list and adjust medications accordingly for optimal blood pressure control. (6) Abnormal finding on urinalysis: Code(s): R82.90 - Unspecified abnormal findings in urine Status: Acute Assessment and Plan: CBC, CMP, UA, reviewed Obtain urine culture if needed Follow temp curve, cultures, WBC, and VS Levofloxacin 750 IV daily Subjective Date/time seen: 02/01/22 06:56 patient is alert and oriented x4. Patient wanted to go home today. However the patient did have positive blood cultures this morning for group B strep. Patient is currently on IV antibiotics with vancomycin. Pending sensitivity report. No signs of osteomyelitis in the x-ray. Obtain MRI for further evaluation of possible osteomyelitis to the right foot. her right foot does not appear signficantly worse. pending ELOISA. repeat blood cultures. culture of wound, consult Wound Care. Patient may benefit from an offloading boot to the right lowe
[2022-02-01 07:54] LABS: Glucose Point of Care 158 mg/dl (65-105)
[2022-02-01] MEDS: SPIRONOLACTONE 25 MG TABLET PO (09:00)
[2022-02-01] MEDS: lisinopriL 20 MG TABLET 40 MG PO (09:00)
[2022-02-01] MEDS: CYANOCOBALAMIN 500 MCG TABLET PO (09:00)
[2022-02-01] MEDS: ASPIRIN 81 MG ENTERIC TABLET PO (09:00)
[2022-02-01] MEDS: CLOPIDOGREL BISULFATE 75 MG TABLET PO (09:00)
[2022-02-01] MEDS: ATORVASTATIN 40 MG TABLET PO (09:00)
[2022-02-01] MEDS: INSULIN GLARGINE (*BKC) 100 UNITS/ML 30 UNITS SUB-Q (09:01)
[2022-02-01] MEDS: ENOXAPARIN 120 MG/0.8 ML SYRINGE 105 MG SUB-Q (09:01)
[2022-02-01] MEDS: IPRATROPIUM BR 0.02% INH SOLN 0.5 MG/2.5 ML VIAL INHALATION ×3 (09:22→21:52)
[2022-02-01] MEDS: DOCUSATE SODIUM 100 MG CAPSULE PO (10:20)
[2022-02-01 12:02] LABS: Glucose Point of Care 209 mg/dl (65-105)
[2022-02-01] MEDS: INSULIN ASPART (*BKC) 100 UNITS/ML SUB-Q ×2 (12:26→16:34)
[2022-02-01 12:34] LABS: CRP 6.8 mg/dL (<1.0)
--- NOTE | 2022-02-01 12:52 | PM.PNCARD ---
Progress Note: A&P Assessment and Plan (1) Left bundle branch block: Code(s): I44.7 - Left bundle-branch block, unspecified Status: Acute Plan I have reviewed her records from [facility] LBBB is new compared to last year but no clinical evidence of ACS and her cardiac enzymes are normal. Her QRS width was increasing in 2020 compared to prior EKG but now has complete LBBB Non obstructive CAD with cath in 2019 Hx of DVT in past with chronic vein insufficiency that can explain her LE swelling First degree HB and frequent PACs and likely possible short runs of AF vs frequent PACS Recurrent UTI and wound in rt foot without clinical evidence of critical LE ischemia. She had ELOISA in 2019 that was normal PFO vs Pulm AV shunt Hx of TIA HTN controlled DM type 2 Plan Event monitor on D/C to rule out AF and assess AF burden Cont DAPT and statin Cont amlodipine, Lisinopril and spironolactone F/U with her loan interviewer in clinic Dr Rudolph Subjective Date/time seen: 02/01/22 12:52 no acute events tele: SR review of Tele shows areas of possible short runs of AF vs frequent PACs Review of Systems Review of Systems: All systems reviewed & are unremarkable except as noted in HPI and below Exam Const: General: comfortable and no acute distress Other: Able to lie flat Resp: Auscultation: clear to auscultation bilaterally and lung sounds not diminished Other: No chest wall tenderness Cardio: Rate: regular rate Rhythm: regular rhythm Heart sounds: no gallops, no murmurs and no rubs GI: GI Palp: Yes Soft to palpation and No Tenderness to palpation present (GI) Auscultation: normal bowel sounds Skin: General skin exam: normal color, rashes and/or lesions noted and no erythema Other: Warm Extrem: General: edema (Bilateral LE edema) Other: Normal capillary refills Intact distal pulses. Objective Data Vital Signs Vital Signs: Vital Signs - 24 hr 01/31/22 12:59 01/31/22 13:24 01/31/22 13:20 Temperature Pulse Rate 66 Respiratory Rate 18 Blood Pressure Pulse Oximetry 98 Oxygen Delivery Nasal Cannula Nasal Cannula Oxygen Flow Rate 2 2 01/31/22 13:30 01/31/22 13:42 01/31/22 21:09 Temperature 36.4 C Pulse Rate 71 69 Respiratory Rate 18 14 Blood Pressure 135/48 L Pulse Oximetry 100 Oxygen Delivery Nasal Cannula Oxygen Flow Rate 2 01/31/22 21:21 01/31/22 21:30 01/31/22 21:30 Temperature Pulse Rate 70 72 Respiratory Rate 16 16 Blood Pressure Pulse Oximetry 96 Oxygen Delivery Nasal Cannula Oxygen Flow Rate 1.5 01/31/22 20:00 02/01/22 01:22 02/01/22 00:00 Temperature 36.6 C Pulse Rate 61 61 Respiratory Rate 16 Blood Pressure 141/51 H Pulse Oximetry 96 98 Oxygen Delivery Nasal Cannula Oxygen Flow Rate 2 02/01/22 04:00 02/01/22 05:21 02/01/22 09:22 Temperature 36.6 C Pulse Rate 61 60 68 Respiratory Rate 18 16 Blood Pressure 128/52 L Pulse Oximetry 94 Oxygen Delivery Oxygen Flow Rate 02/01/22 09:24 02/01/22 09:29 02/01/22 08:58 Temperature Pulse Rate 68 72 Respiratory Rate 16 16 Blood Pressure Pulse Oximetry 94 97 Oxygen Delivery Nasal Cannula Nasal Cannula Oxygen Flow Rate 1.5 2 Intake/Output Intake/Output: Intake & Output 01/29/22 01/30/22 01/31/22 02/01/22 23:59 23:59 23:59 23:59 Intake Total 490 560 540 Output Total 950 300 Balance -460 260 540 Meds/Results Medications: Active Medications Generic Name Dose Route Start Last Admin Trade Name Freq PRN Reason Stop Dose Admin Acetaminophen 650 mg 01/30/22 23:20 Acetaminophen 325 Mg Tablet PO Q6H PRN Mild Pain (1-3) or Fever Acetaminophen 650 mg 01/31/22 08:09 Acetaminophen 325 Mg Tablet PO Q6H PRN Mild Pain (1-3) or Fever Hydrocodone Bitart/Acetaminophen 1 tab 01/30/22 23:18 Hydrocodone/Acetaminophen (*Crx) 5-325 Mg Tablet BY MOUTH Q6H PRN Pain Rated 4-6 Albu
[2022-02-01 16:29] LABS: Glucose Point of Care 297 mg/dl (65-105)
[2022-02-01] MEDS: INSULIN GLARGINE (*BKC) 100 UNITS/ML 60 UNITS SUB-Q (20:47)
[2022-02-01] MEDS: MELATONIN 5 MG TABLET PO (20:47)
[2022-02-01] MEDS: diazePAM (*CRX) 5 MG TABLET 10 MG PO (20:47)
[2022-02-01 21:12] LABS: Glucose Point of Care 310 mg/dl (65-105)
[2022-02-02] VITALS (21 sets, daily range): BP systolic 107–143; BP diastolic 45–60; PULSE 52–74; RESP 14–18; TEMP 35.8–36.5; O2SAT 85–100
[2022-02-02] MEDS: IPRATROPIUM BR 0.02% INH SOLN 0.5 MG/2.5 ML VIAL INHALATION ×4 (03:14→20:48)
[2022-02-02 06:31] LABS: Basophils Percent Auto 0.6 % (0.2-1.2); Eosinophils Absolute Auto 0.2 K/mm3 (0-0.3); Eosinophils Percent Auto 3.1 % (0-4.4); Hematocrit 32.5 % (37.0-47.0); Hemoglobin 10.5 g/dL (12.0-15.0); Immature Granulocyte Absolute 0.03 K/mm3 (0.00-0.031); Immature Granulocyte Percent A 0.5 % (0-0.5); Lymphocytes Absolute Auto 1.51 K/mm3 (0.9-3.2); Lymphocytes Percent Auto 23.6 % (18.3-44.2); Mean Corpuscular HGB Conc 32.3 g/dl (32-36); Mean Corpuscular Hemoglobin 30.5 pg (26-34); Mean Corpuscular Volume 94.5 fl (80-100); Mean Platelet Volume 11.2 fl (7.4-10.4); Monocytes Absolute Auto 0.8 K/mm3 (0.1-0.6); Monocytes Percent Auto 11.9 % (2.6-8.5); Neutrophils Absolute Auto 3.9 K/mm3 (1.3-6.7); Neutrophils Percent Auto 60.3 % (45.5-73.1); Platelet Count Result 200 k/mm3 (150-375); Red Blood Count 3.44 M/mm3 (4.2-5.4); Red Cell Distribution Width 12.8 % (11.5-14.5); White Blood Count 6.4 K/mm3 (4.5-10.0)
[2022-02-02 06:47] LABS: Alanine Aminotransferase 10 U/L (6-35); Albumin Level 3.3 g/dL (3.5-5.1); Alkaline Phosphatase 57 U/L (38-126); Anion Gap 5 mmol/L (8-16); Aspartate Amino Transferase 18 U/L (14-36); Bilirubin,Total 0.3 mg/dL (0.2-1.3); Blood Urea Nitrogen 30 mg/dL (7-17); Calcium 8.5 mg/dL (8.4-10.2); Carbon Dioxide 30 mmol/L (22-30); Chloride 99 mmol/L (98-107); Estimated CRCL calculation 54 ml/min; Estimated Glomerular Filt Rate 55; Glucose 206 mg/dL (65-110); Potassium 4.1 mmol/L (3.4-5.0); Sodium 134 mmol/L (137-145)
[2022-02-02 07:55] LABS: Glucose Point of Care 200 mg/dl (65-105)
[2022-02-02] MEDS: CYANOCOBALAMIN 500 MCG TABLET PO (08:24)
[2022-02-02] MEDS: SPIRONOLACTONE 25 MG TABLET PO (08:24)
[2022-02-02] MEDS: CLOPIDOGREL BISULFATE 75 MG TABLET PO (08:24)
[2022-02-02] MEDS: INSULIN GLARGINE (*BKC) 100 UNITS/ML 35 UNITS SUB-Q (08:24)
[2022-02-02] MEDS: ATORVASTATIN 40 MG TABLET PO (08:24)
[2022-02-02] MEDS: ASPIRIN 81 MG ENTERIC TABLET PO (08:24)
[2022-02-02] MEDS: ENOXAPARIN 40 MG/0.4 ML SYRINGE SUB-Q (08:25)
[2022-02-02] MEDS: lisinopriL 20 MG TABLET 40 MG PO (08:25)
--- NOTE | 2022-02-02 11:39 | ECHO_ITS ---
Patient Info Name: Radha Ortiz Age: 71 years : 1950 Gender: Female Ht: 64 in Wt: 231 lbs BSA: 2.23 m2 HR: 56 bpm BP: 120 / 60 mmHg Heart Rhythm: Sinus Rhythm Technical Quality: Fair Exam Date: 02/02/2022 8:41 AM Exam Location: [facility] Card Pulmonary Patient Status: Inpatient Admit Date: 01/30/2022 Staff Ordering Physician: Vera Chaparro APRN Law Firm Administrator: Yamila Perez RDCS Attending Provider: Logan Hsu MD Referring Physician: Shankar SNIDER; Exam Type: CA echo doppler color flow Study Info Indications - sob Complete two-dimensional, color flow and Doppler transthoracic echocardiogram is performed. Summary 1. Complete two-dimensional, color flow and Doppler transthoracic echocardiogram is performed. 2. Left ventricular chamber dimension is normal. 3. There is mild concentric increased left ventricular wall thickness. 4. Left ventricular systolic function is normal, estimated at 65-70%. 5. The mitral valve annulus is moderately calcified. 6. Left atrial chamber dimension is moderately enlarged. Left Ventricle Left ventricular chamber dimension is normal. Left ventricular systolic function is normal, estimated at 65-70%. There is mild concentric increased left ventricular wall thickness. The left ventricular diastolic function is grade I diastolic dysfunction. Right Ventricle Right ventricular chamber dimension is normal. Left Atria Left atrial chamber dimension is moderately enlarged. Right Atria Right atrial chamber dimension is normal. Aortic Valve The aortic valve is normal. Pulmonic Valve The pulmonic valve is normal. Mitral Valve The mitral valve has normal leaflets. There is no mitral valve regurgitation. The mitral valve annulus is moderately calcified. Tricuspid Valve The tricuspid valve leaflets are normal. Pericardium/Pleural The pericardium appears normal. Aorta The aortic root size at the sinus of Valsalva is normal. Left Ventricular Outflow Tract Name Value Normal LVOT 2D LVOT Diameter 2.0 cm LVOT Doppler LVOT Peak Velocity 133 cm/s LVOT Peak Gradient 7 mmHg LVOT Mean Gradient 4 mmHg LVOT VTI 31 cm LVOT VTI/AV VTI Ratio 0.8 LVOT Stroke Volume 95 ml LVOT CO 6.3 l/min LVOT CI 2.8 l/min/m2 Pulmonic Valve Name Value Normal RVOT Doppler RVOT Peak Gradient 2 mmHg PV Doppler PV Peak Velocity 91 cm/s PV Peak Gradient 3 mmHg Mitral Valve
[2022-02-02] MEDS: SILVERGEL (ELTA) 45 ML 1 APPLIC TOPICAL (11:43)
[2022-02-02 12:00] LABS: Glucose Point of Care 257 mg/dl (65-105)
[2022-02-02] MEDS: INSULIN ASPART (*BKC) 100 UNITS/ML SUB-Q ×2 (12:03→16:41)
[2022-02-02 14:05] LABS: Vancomycin Trough 10.5 ug/mL (10.0-20.0)
--- NOTE | 2022-02-02 14:35 | PM.IMPN ---
Progress Note: A&P Assessment and Plan (1) Pneumonia: Code(s): J18.9 - Pneumonia, unspecified organism Status: Acute Assessment and Plan: Improving. Stable. Continue Levaquin 750 mg PO daily to cover lung, urine and blood stream infection. Pneumococcal antigen urine and legionella pneumophila Ag Ur DuoNeb q6H and Albuterol q2H PRN Patient is supposed to wear 2 L of oxygen per nasal cannula at all times, this isn't order provided by her PCP. Patient has only been wearing her oxygen at night. Will continue to educate. She reports she will be more complaint with daytime oxygen. (2) Left bundle branch block: Code(s): I44.7 - Left bundle-branch block, unspecified Status: Acute Assessment and Plan: Attempt to obtain records from [facility] in [place]: Patient reports a recent cardiac catheterization with 30% stenosis to her vessels and she was placed on a statin at that time reportedly. Cardiology consulted and appreciate recommendations. TTE normal LV systolic function, EF 65%, mild LV wall thickness, moderate LAE. Avoid AV blockade medications. Continue spironolactone and lisinopril for BP management. She will need 30-day event monitor at discharge. (3) Bacteremia due to group B Streptococcus: Code(s): R78.81 - Bacteremia; B95.1 - Streptococcus, group B, as the cause of diseases classified elsewhere Status: Acute Assessment and Plan: 01/30/22 blood cultures positive in 2 of 2 bottles Group B strep sensitive to Levaquin and Vancomycin. Resistant to Clindamycin. Repeat cultures 02/01/22 negative to date. Continue Levaquin 750 mg PO (equivalent bioavailablity to IV) for 7-10 days. (4) Infection of right foot: Code(s): L08.9 - Local infection of the skin and subcutaneous tissue, unspecified Status: Acute Assessment and Plan: Wound culture without organism growth at this time. MRI foot without osteomyelitis. Stop Vancomycin. Continue Levaquin 750 mg PO daily for bacteremia. Consult Wound Care for further management evaluation ELOISA right mildly decreased 0.81 and left 0.91. No limb ischemia present. P.r.n. Tylenol for fever or pain. She has seen a retail customer service specialist outpatient previously and has been fitted for diabetic shoes. We discussed routine foot care and not walking barefoot. 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 Continue lantus BID, increase am dose 35 units and continue 60 units at HS. Change Lispro sliding scale moderate scale, Accu-checks qAc and HS and Hold oral hypoglycemics HgbA1c 8.9% (6) Abnormal finding on urinalysis: Code(s): R82.90 - Unspecified abnormal findings in urine Status: Acute Assessment and Plan: Urine culture pending. Continue Levaquin 750 mg daily, transition to PO and adjust per urine culture. (7) Hypertension: Code(s): I10 - Essential (primary) hypertension Status: Chronic Assessment and Plan: Stable. Continue lisinopril and spironolactone. Plan Transition patient to PO antibiotics. If blood cultures still negative tomorrow and patient is stable, will plan to discharge home with outpatient PT, per recommendations. Time Spent With Patient Time with patient: 15 - 25 minutes Subjective Date/time seen: 02/02/22 14:35 Interval history: Patient found sitting up in the chair. She denies new complaints or overnight events. No chest pain, SOB, di
[2022-02-02] MEDS: levoFLOXacin 750 MG TABLET PO (14:52)
[2022-02-02 16:36] LABS: Glucose Point of Care 299 mg/dl (65-105)
--- NOTE | 2022-02-02 17:19 | WPDCDIQUERY2 ---
CDI Query Clarification Request 01/30 ER physcian documented: Discharge Clinical Impression: ?Acute exacerbation of chronic obstructive pulmonary disease, New onset a-fib, Infection of right foot 7 H&P Chest x-ray: ? ? ? Radiologist's impression: IMPRESSION: Cardiomegaly and borderline pulmonary vascular congestion Patchy bilateral basilar infiltrate and/atelectasis? Please clarify if diagnosis: Acute exacerbation of chronic obstructive pulmonary disease, has been ruled in, ruled out or unable to determine <Ching Pace - Last Filed: 02/02/22 17:26> 01/30 ER physcian documented: Discharge Clinical Impression: ?Acute exacerbation of chronic obstructive pulmonary disease, New onset a-fib, Infection of right foot 7 H&P Chest x-ray: ? ? ? Radiologist's impression: IMPRESSION: Cardiomegaly and borderline pulmonary vascular congestion Patchy bilateral basilar infiltrate and/atelectasis? Please clarify if diagnosis: Acute exacerbation of chronic obstructive pulmonary disease, has been ruled in, ruled out or unable to determine COPDAE ruled in <Carito Singleton APRN - Last Filed: 02/03/22 09:46>
[2022-02-02] MEDS: MELATONIN 5 MG TABLET PO (20:37)
[2022-02-02] MEDS: diazePAM (*CRX) 5 MG TABLET 10 MG PO (20:37)
[2022-02-02] MEDS: INSULIN GLARGINE (*BKC) 100 UNITS/ML 60 UNITS SUB-Q (20:38)
[2022-02-02 21:26] LABS: Glucose Point of Care 306 mg/dl (65-105)
[2022-02-03] VITALS (8 sets, daily range): BP systolic 150; BP diastolic 51; PULSE 63–112; RESP 12–18; TEMP 36.2; O2SAT 99
[2022-02-03 07:29] LABS: Basophils Percent Auto 0.6 % (0.2-1.2); Eosinophils Absolute Auto 0.3 K/mm3 (0-0.3); Eosinophils Percent Auto 4.8 % (0-4.4); Hematocrit 32.8 % (37.0-47.0); Hemoglobin 10.7 g/dL (12.0-15.0); Immature Granulocyte Absolute 0.03 K/mm3 (0.00-0.031); Immature Granulocyte Percent A 0.5 % (0-0.5); Lymphocytes Absolute Auto 1.73 K/mm3 (0.9-3.2); Mean Corpuscular HGB Conc 32.6 g/dl (32-36); Mean Corpuscular Hemoglobin 30.9 pg (26-34); Mean Corpuscular Volume 94.8 fl (80-100); Mean Platelet Volume 11.2 fl (7.4-10.4); Monocytes Absolute Auto 0.7 K/mm3 (0.1-0.6); Monocytes Percent Auto 10.9 % (2.6-8.5); Neutrophils Absolute Auto 3.6 K/mm3 (1.3-6.7); Neutrophils Percent Auto 56.2 % (45.5-73.1); Platelet Count Result 224 k/mm3 (150-375); Red Blood Count 3.46 M/mm3 (4.2-5.4); Red Cell Distribution Width 12.6 % (11.5-14.5); White Blood Count 6.4 K/mm3 (4.5-10.0)
[2022-02-03 07:50] LABS: Glucose Point of Care 149 mg/dl (65-105)
[2022-02-03] MEDS: IPRATROPIUM BR 0.02% INH SOLN 0.5 MG/2.5 ML VIAL INHALATION (08:14)
[2022-02-03] MEDS: ENOXAPARIN 40 MG/0.4 ML SYRINGE SUB-Q (08:48)
[2022-02-03] MEDS: levoFLOXacin 750 MG TABLET PO (08:49)
[2022-02-03] MEDS: ATORVASTATIN 40 MG TABLET PO (08:49)
[2022-02-03] MEDS: ASPIRIN 81 MG ENTERIC TABLET PO (08:49)
[2022-02-03] MEDS: lisinopriL 20 MG TABLET 40 MG PO (08:49)
[2022-02-03] MEDS: CLOPIDOGREL BISULFATE 75 MG TABLET PO (08:49)
[2022-02-03] MEDS: CYANOCOBALAMIN 500 MCG TABLET PO (08:49)
[2022-02-03] MEDS: SPIRONOLACTONE 25 MG TABLET PO (08:49)
[2022-02-03] MEDS: SILVERGEL (ELTA) 45 ML 1 APPLIC TOPICAL (08:54)
[2022-02-03] MEDS: INSULIN GLARGINE (*BKC) 100 UNITS/ML 35 UNITS SUB-Q (08:56)
--- NOTE | 2022-02-03 10:19 | PM.DS ---
DS: Admitting Diagnosis Discharge Date 02/03/2022 1019 Admitting Diagnosis Pneumonia, unspecified organism Left bundle branch block, unknown duration Right foot laceration with localized infection. Insulin dependent diabetes mellitus with hyperglycemia DS: Discharge Diagnosis Discharge Diagnosis (1) Pneumonia: Code(s): J18.9 - Pneumonia, unspecified organism Status: Acute (2) Bacteremia due to group B Streptococcus: Code(s): R78.81 - Bacteremia; B95.1 - Streptococcus, group B, as the cause of diseases classified elsewhere Status: Acute (3) Left bundle branch block: Code(s): I44.7 - Left bundle-branch block, unspecified Status: Acute (4) Infection of right foot: Code(s): L08.9 - Local infection of the skin and subcutaneous tissue, unspecified Status: Acute (5) Acute exacerbation of chronic obstructive pulmonary disease: Code(s): J44.1 - Chronic obstructive pulmonary disease with (acute) exacerbation Status: Acute (6) Cardiac arrhythmia, unspecified: Code(s): I49.9 - Cardiac arrhythmia, unspecified Status: Acute (7) Abnormal finding on urinalysis: Code(s): R82.90 - Unspecified abnormal findings in urine Status: Acute (8) Chronic respiratory failure with hypoxia, on home oxygen therapy: Code(s): J96.11 - Chronic respiratory failure with hypoxia; Z99.81 - Dependence on supplemental oxygen Status: Chronic DS: Summary Hospital Course Hospital Course: Radha Ortiz is a 71-year-old female, with medical history of kidney stones, COPD, hypertension, CAD, HLD, insulin dependent diabetes and chronic home oxygen use. She presented to emergency room with multiple medical complaints.? She reported she was outside on the morning of her admission, with her neighbors, drinking green tea and started feeling very shaky.? She then went inside and was mildly nauseous.?Her blood glucose level was elevated she did take some fast acting and long acting insulin.? She then called EMS and was transported to the emergency room.? Upon evaluation emergency room, she was noted to have an elevated blood glucose level.? Patient also reported presence of a piece of glass stuck in her right foot recently and she did see a cooker helper for this and had been on antibiotic therapy, but she did not feel the antibiotics were working.? In the ED, she was noted to have EKG performed concerning for atrial fibrillation with a left bundle branch block, no previous EKGs were available for comparison.? Patient reported a cardiac workup performed at [facility] previously and had prior cardiac catheterization which showed 30% stenosis of her coronary arteries.?She has been told she has a hole in heart then never closed at .? No c/o chest pain, abnormal shortness of breath, lightheadedness, dizziness, syncopel, or near syncopal episodes.? Patient has chronic dyspnea on exertion because of her COPD, and reportedly is supposed to wear oxygen at 2 L per nasal cannula at all times, but she only wears it at night.? No new cough or sputum production.? No vomiting.? No palpitations, but endorsed occasional ?fluttering? in her chest, which she cannot associate with any activity and reportedly just comes and goes. In the ED, her vitals were temp 36.9C, HR 50, RR 18, BP 165/64, and spO2 98% on 2L NC. Lab work showed WBC 19.5, CO2 32, BUN 37, Creatinine 1.1, GFR 49, glucose 236, lactic acid 1.9, CRP 1.3. CXR showed cardiomegaly with borderline pulmonary vascular congestion, patching bilateral basilar infiltrates. She was placed on telemetry monitoring and Cardiology was consulted. Repeat EKG and telemetry showed SR with first degree AV block, LBBB and PACs. She appears to have short runs of afib on telemetry. Echocardiogram was completed and showed left atrial enlargement, but normal LV and RV systolic function with EF 65%. Cardiology recommended event monitor at discharge and avoiding AV
[2022-02-03 12:00] LABS: Glucose Point of Care 243 mg/dl (65-105)
[2022-02-03] MEDS: INSULIN ASPART (*BKC) 100 UNITS/ML SUB-Q (12:13)
[2022-02-03 16:05] LABS: Legionella pneumophila Ag Ur Not Detected (Not Detected)
[2022-02-03 20:12] LABS: Pneumococcal Antigen Urine Not Detected (Not Detected)
--- NOTE | 2022-02-04 07:27 | PC.NURSE ---
Initial DSMT referral fax[facility] to [facility].
== END 2022-02-03 12:50 | disposition home or self-care (01) | DRG 194 ==
LOC: ANHED 12:07 → ANHIMU 15:56 → ANH2MED 02-01 09:48 → ANHIMU 02-04 09:53
PROVIDERS: Nurse Practitioner Adult Health; Nurse Practitioner Family; Admitting Provider Internal Medicine; Emergency Provider Emergency Medicine; PCP Family Medicine; Visit Provider Nurse Practitioner Family
DX: J18.9 Pneumonia, unspecified organism (principal); J44.0 Chronic obstructive pulmonary disease with (acute) lower respiratory infection; J44.1 Chronic obstructive pulmonary disease with (acute) exacerbation; J96.11 Chronic respiratory failure with hypoxia; R78.81 Bacteremia; Z20.822 Contact with and (suspected) exposure to COVID-19; I44.7 Left bundle-branch block, unspecified; L08.9 Local infection of the skin and subcutaneous tissue, unspecified; I10 Essential (primary) hypertension; Z87.891 Personal history of nicotine dependence; Z81.1 Family history of alcohol abuse and dependence; Z99.81 Dependence on supplemental oxygen; Z83.3 Family history of diabetes mellitus; Z80.8 Family history of malignant neoplasm of other organs or systems; I25.2 Old myocardial infarction; E66.9 Obesity, unspecified; I25.10 Atherosclerotic heart disease of native coronary artery without angina pectoris; E11.65 Type 2 diabetes mellitus with hyperglycemia; Z68.30 Body mass index [BMI] 30.0-30.9, adult; R00.1 Bradycardia, unspecified; Z91.14 Patient's other noncompliance with medication regimen; E78.5 Hyperlipidemia, unspecified; R82.90 Unspecified abnormal findings in urine; Z79.899 Other long term (current) drug therapy; Z79.82 Long term (current) use of aspirin; Z86.718 Personal history of other venous thrombosis and embolism; B95.1 Streptococcus, group B, as the cause of diseases classified elsewhere; Z87.440 Personal history of urinary (tract) infections
CPT/HCPCS: 36415; 71046; 73630; 73718; 80048; 80053; 80202; 81001; 82948; 83036; 83605; 83690; 83735; 83880; 84443; 84484; 84550; 85025; 85610; 85730; 86140; 87040; 87070; 87086; 87147; 87186; 87205; 87449; 87899; 93005; 93306; 93922; 94640; 96372; 96374; 97110; 97161; 97165; 97530; 99285; A9270; C9803; J1650; J1815; J1956; J3370; U0003; U0005

== ENCOUNTER 2022-04-21 06:40 | Outpatient (RCR) | payer MEDICARE, MEDICAID, SELFPAY | END 2022-07-05 11:19 | disposition home or self-care (01) | LOC: ANHDMC 06:40 | PROVIDERS: PCP Family Medicine; Visit Provider Family Medicine | DX: E11.65 Type 2 diabetes mellitus with hyperglycemia (principal) | CPT/HCPCS: 99199 ==

== ENCOUNTER 2022-10-08 10:07 | Outpatient (CLI) | payer MEDICARE, MEDICAID, SELFPAY ==
--- NOTE | ~2022-10-08 | US_ITS ---
EXAMINATION: US venous doppler LE RT DATE: 10/08/2022 10:44 INDICATION: Right lower limb pain and edema. TECHNIQUE: Grayscale ultrasound images without and with compression and Doppler ultrasound images of the right lower extremity veins were obtained. COMPARISON: None. FINDINGS: The visualized portions of right common femoral vein, profunda (deep) femoral vein, femoral vein, pop liteal vein, peroneal veins, posterior tibial veins, and greater saphenous vein outflow are patent. IMPRESSION: 1. No deep venous thrombosis. Reviewed, dictated and finalized at location A. 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
== END 2022-10-08 10:08 | disposition home or self-care (01) ==
LOC: ANHIMG 10:16
PROVIDERS: PCP Family Medicine; Visit Provider Family Medicine
DX: R60.0 Localized edema (principal)
CPT/HCPCS: 93971

== ENCOUNTER 2024-08-28 12:31 | Emergency (ER) | payer MEDICARE, MEDICAID, SELFPAY ==
--- NOTE | ~2024-08-28 | XR_ITS ---
XR tibia fibula RT 2V 08/28/2024 14:46 Indication: Right leg pain Procedure: 2 views right tibia/fibula Comparison: No prior studies for comparison. Findings: Severe osteoarthritis of the right knee. There is heterotopic ossification medial to the di stal aspect of the tibia. No acute fracture or traumatic malalignment. There are calcaneal enthesophy bryan. There is degenerative change of the midfoot partially visualized. Impression: 1: No acute bone or joint abnormality. Reviewed, dictated and finalized at location A. REVIEW OFFICER Impression: 1: No acute bone or joint abnormality.
[2024-08-28 13:01] VITALS: BP 147/62; PULSE 79; RESP 20; TEMP 36.6; O2SAT 93
--- OUTSIDE RECORDS SUMMARY | 2024-08-28 13:07 | XMS_ITS | Clinical Summary ---
Author Organization [facility] Office Center Address [address] [place] [address] Care Team Providers Care Door Worker Name Role Phone Nubia Lopez NP Primary Care Provider + [phone] Allergies Active Allergy Reactions Criticality Noted Date Comments Cephalexin Hives Medium 01/21/2021 Latex Hives,Itching,Rash Medium 04/04/2020 Has to wear the gloves for a long time and then develops symptoms, Has irritation from elastic in underwear, lips tingle when she eats a banana Penicillin G Procaine Rash Medium 01/11/2019 Penicillins Hives High 11/05/2013 Sulfa (Sulfonamide Antibiotics) Hives Medium 12/08/2020 Medications diazePAM (VALIUM) 10 mg tablet 1 tablet (10 mg total) daily as needed for anxiety Active aspirin 81 mg chewable tablet 1 tablet (81 mg total) daily Active docusate sodium (COLACE) 100 mg capsuleIndication s:constipation Take 1 capsule (100 mg total) by mouth 2 (two) times a day Active LANTUS 100 unit/mL (3 mL) pen for injection Inject 60 Units under the skin daily before breakfast 11/03/19 22 Active OneTouch Delica Plus Lancet 33 gauge misc 3 (three) times a day 10/02/19 22 Active OneTouch Verio Reflect Meter misc USE TO TEST BLOOD SUGAR THREE TIMES DAILY 10/02/19 22 Active OneTouch Verio test strips strip 3 (three) times a day 10/03/19 22 Active HumaLOG 100 unit/mL pen for injection Sliding scale. <150 No Humalog 151-200 5 units 201-250 10 units 251-300 15 units 301-350 20 units 351> 25 units 01/04/20 22 Active polyethylene glycol (MIRALAX) 17 gram/dose powderIndications :constipation polyethylene glycol 3350 17 gram/dose oral powder DISSOLVE 17 GRAMS IN LIQUID AND DRINK BY MOUTH DAILY NEEDED Active cholecalciferol (VITAMIN D-3) 2000 unit capsule Take 1 capsule (2,000 Units total) by mouth daily Active oxygenIndications :Dyspnea Administer 2 L/min into each nostril as needed (sob). Indications: trouble breathing Active zinc sulfate 66 mg tablet Take by mouth daily Active naloxone (NARCAN) 4 mg/actuation spray,non-aerosol Indications:Opiat e-Induced Respiratory Depression,Opioid Toxicity Administer 1 spray into affected nostril(s) as needed for opioid reversal or respiratory depression Use 1 spray into 1 nostril, spray in the other nostril 2-3 later if needed. Remember to call 911 if you need to use this medication. 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),TIA (transient ischemic attack) Take 1 tablet (75 mg total) by mouth daily 90 tablet 3 11/10/19 24 025 Active lisinopriL (PRINIVIL,ZESTRIL ) 40 mg tabletIndications :Essential hypertension Take 1 tablet (40 mg total) by mouth daily 90 tablet 3 11/10/19 24 025 Active spironolactone (ALDACTONE) 25 mg tabletIndications :Dyspnea on exertion,Dyslipid emia,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),Essential hypertension,Rug Repairer kevin venous insufficiency Take 1 tablet (25 mg total) by mouth daily 90 tablet 3 11/10/19 24 025 Active torsemide (DEMADEX) 10 mg tabletIndications :Essential hypertension,Rug Repairer kevin diastolic heart failure (HCC) Take 1 tablet (10 mg total) by mouth once a week 12 tablet 3 11/10/19 24 Active magnesium gluconate 200 mg tabletIndications :hypomagnesemia Take 1 tablet (200 mg total) by mouth daily 90 tablet 3 11/10/19 24 025 Active HYDROcodone-aceta minophen (NORCO) 5-325 mg per tablet Take 1 tablet by mouth every 6 (six) hours as needed for pain 05/25/20 24 Active ciprofloxacin (CIPRO) 500 mg tablet Take 1 tablet (500 mg total) by mouth 2 (two) times a day 6 tablet 06/26/20 24 Active Active Problems Problem Noted Date Diagnosed Date Stricture of female urethra 06/19/2024 Urinary retention 06/19/2024 Postprocedural female urethral stricture 023 Chronic diastolic congestive heart failure (CMS/ HCC) 11/19/2022 Stage 3a chronic kidney disease 11/19/2022 Snoring 01/29/2022 Assessment & Plan (06/06/2024 10:22 AM SENIOR SALES CONSULTANT): The patient sleeps in a recliner. Assessment & Plan (10/05/2023 10:31 AM SENIOR SALES CONSULTANT): The patient continues with positional therapy. Assessment & Plan (04/06/2023 10:12 AM CDT): Due to the snoring, the patient will continue with positional therapy. I have offered a nocturnal polysomnogram. Patient would like to wait at this time Assessment & Plan (08/27/2022 10:32 AM SENIOR SALES CONSULTANT): Due to the patient having difficulty breathing while laying flat the patient was offered a a nocturnal polysomnogram. Patient denies the want for nocturnal polysomnogram at this time. The patient states that she will continue the sleep in her recliner. Assessment & Plan (01/29/2022 11:13 AM CDT): Due to the patient having difficulty breathing while laying flat the patient was offered a a nocturnal polysomnogram. Patient denies the want for nocturnal polysomnogram at this time. The patient states that she will continue the sleep in her recliner. Diabetic skin ulcer associat ed with type 2 diabetes mellitus ([facility]) 12/29/2021 Open wound of left lower leg 12/29/2021 Venous ulcer of lower extrem ity due to chronic peripheral venous hypertension 12/29/2021 Morbid (severe) obesity due to excess calories 0 11/25/2021 COVID-19 04/08/2021 BEDOYA (dyspnea on exertion) 01/21/2021 Assessment & Plan (01/21/2021 12:09 PM CDT): I will check full PFTs and a 6 minutes walk test and chest x-ray. If the echo bubble study is still positive for possible AVM, then I would repeat a chest CT with contrast. She will follow-up here in 3 weeks. History of DVT (deep vein thrombosis) 11/07/2020 Abnormal findings on diagnostic imaging of lung 02/26/2020 Abnormal EKG 07/12/2019 Edema of lower extremity 01/11/2019 Encounter for screening for cardiovascular disor ders 01/11/2019 Peripheral venous insufficiency 01/11/2019 Foot callus 11/17/2018 Exercise hypoxemia 02/22/2018 Assessment & Plan (06/06/2024 10:22 AM SENIOR SALES CONSULTANT): The patient continues to use oxygen at 2 liters/minute while sleeping and p.r.n. during the day Assessment & Plan (10/05/2023 10:31 AM SENIOR SALES CONSULTANT): The patient will continue to use 2 L of oxygen at night and during the day as needed. Assessment & Plan (04/06/2023 10:13 AM CDT): Continues to wear 2 L of oxygen with activity and while sleeping Assessment & Plan (08/27/2022 10:32 AM SENIOR SALES CONSULTANT): Patient states she does use oxygen during the day and at nighttime. Assessment & Plan (01/29/2022 11:12 AM CDT): Patient states she does any oxygen during the day but she is using oxygen at night. Assessment & Plan (06/10/2021 9:42 AM SENIOR SALES CONSULTANT): The patient continue to use 2 L of oxygen with activity. Vitamin D deficiency 01/10/2018 Chronic obstructive pulmonary disease 11/02/2017 Assessment & Plan (06/06/2024 10:21 AM SENIOR SALES CONSULTANT): The patient has stage II COPD/centrilobular emphysema and continues to use an albuterol inhaler on a p.r.n. basis. She is currently doing well. She will follow up with Dr. Castro in 6 months. Assessment & Plan (10/05/2023 10:31 AM SENIOR SALES CONSULTANT): Patient will continue with albuterol as needed up to 4 times a day for shortness of breath. Assessment & Plan (08/27/2022 10:31 AM SENIOR SALES CONSULTANT): Patient continues Trelegy one inhalation once a day. Patient continue to use her albuterol inhaler nebulizer as needed up to 4 times a day for shortness of breath. Assessment & Plan (01/29/2022 11:12 AM CDT): Patient continues Trelegy one inhalation once a day. Patient continue to use her albuterol inhaler nebulizer as needed up to 4 times a day for shortness of breath. Assessment & Plan (06/10/2021 9:42 AM SENIOR SALES CONSULTANT): Patient continue to use Trelegy 1 inhalation once a day. Patient continue to use her albuterol inhaler as needed up to 4 times a day for shortness of breath. I have ordered a nebulizer and albuterol solution for the patient. The patient was instructed that she can either use the nebulizer or inhaler as needed up to 4 times a day for shortness of breath. Pulmonary arteriovenous malformation 09/27/2017 Assessment & Plan (06/06/2024 10:22 AM SENIOR SALES CONSULTANT): There was no evidence of a pulmonary AVM on the transesophageal echocardiogram performed in 2020 but she did have evidence of a patent foramen ovale. She continues to follow with Cardiology. Assessment & Plan (10/05/2023 10:31 AM SENIOR SALES CONSULTANT): Patient continues to follow with Cardiology. Assessment & Plan (04/06/2023 10:12 AM CDT): Continues to follow with Cardiology Assessment & Plan (08/27/2022 10:32 AM SENIOR SALES CONSULTANT): The patient continues to follow with cardiology. Assessment & Plan (01/29/2022 11:11 AM CDT): Was not seen on the echo in June of 2021. Patient does have patent foramen ovale. She has seen Dr. Rudolph. Assessment & Plan (06/10/2021 9:42 AM SENIOR SALES CONSULTANT): The patient has a transesophageal echo scheduled for June 30, 2021. Assessment & Plan (04/24/2021 10:06 AM CDT): The patient is going to make an appointment with Dr. Rudolph to have an echo/bubble study performed to see if an AVM is still present. Anxiety state 12/23/2016 ASD (atrial septal defect) 12/23/2016 Calculus of kidney 12/23/2016 History of surgery to other organs 12/23/2016 Obesity 12/23/2016 Other and unspecified hyperlipidemia 12/23/2016 Peripheral vascular disease 12/23/2016 Heart murmur 11/29/2016 Varicose veins with pain 11/29/2016 Neuropathy 11/29/2016 Cerebral artery occlusion with cerebral infarcti on 09/30/2016 Dyslipidemia 09/30/2016 Essential hypertension 09/30/2016 Type 2 diabetes mellitus wit h diabetic neuropathy, with long-term current use of insulin ([facility]) 09/30/2016 Sinusitis 06/23/2016 Hematuria, unspecified 11/06/2015 Urinary tract infection 11/06/2015 Resolved Problems Problem Noted Date Diagnosed Date Resolved Date Left ureteral stone 11/21/2022 11/24/19 Hydroureteronephrosis 11/21/20222022 Osteomyelitis of fifth toe o f right foot (CMS/HCC) 11/19/2022 11/24/2022 Centrilobular emphysema 04/24/2021 11/0 12/2023 Assessment & Plan (04/06/2023 10:12 AM CDT): The patient was ordered albuterol on a p.r.n. basis and up to 4 times a day as needed for symptom control. Assessment & Plan (04/24/2021 10:07 AM CDT): The patient continues to use Trelegy and albuterol. She has stage II COPD. She is using oxygen at 2 liters/minute while walking. I will have an order sent to [facility] for her to obtain a portable oxygen concentrator. Acute thromboembolism of alessandra p veins of lower extremity (CMS/HCC) 12/23/2016 11/19/2022 Encounters Date Type Department Care Team Description 06/26/2024 11:30 AM SENIOR SALES CONSULTANT - 06/26/2024 12:15 PM SENIOR SALES CONSULTANT Surgery [facility] Operating Room [address] [place] [address] Davida León MD INSERTION SUPRAPUBIC TUBE with cystoscopy 06/26/2024 10:58 AM SENIOR SALES CONSULTANT Anesthesia Event [facility] [address] [place] [address] Nuno Lorenz MD Kory, Christopher James, MD 06/26/2024 9:21 AM SENIOR SALES CONSULTANT - 06/26/2024 1:05 PM SENIOR SALES CONSULTANT Hospital Encounter [facility] [address] [place] [address] Davida León MD Discharge Disposition: Discharge to home or self care 06/06/2024 10:00 AM SENIOR SALES CONSULTANT Office Visit [facility] Pulmonology [address] [facility] [address] [place] [phone] Luigi Yost MD Panlobular emphysema (HCC) (Primary Dx); Pulmonary arteriovenous malformation; Exercise hypoxemia; Snoring from Last 3 Months Surgical History Surgery Date Site/Laterality Comments CARDIAC CATHETERIZATION KIDNEY STONE SURGERY OTHER SURGICAL HISTORY 04/11/2020 Left left foot 4th toe debridement CYSTOSCOPY 11/22/2022 FOOT SURGERY 11/23/2022 Right resection infected bone right foot OTHER SURGICAL HISTORY 01/18/2023 CYSTOSCOPY, ??URETHRAL DILATION, biopsy of urethral stricture, suprapubic catheter insertion, placement of kimble catheter Medical History Medical History Date Comments Stroke ([facility]) 2014 no deficits Hypertension Diabetes mellitus ([facility]) Hyperlipidemia Heart murmur Emphysema with chronic bronchitis ([facility]) Thyroid disease Sleep apnea DVT (deep venous thrombosis) ([facility]) ([facility]) Anxiety Kidney stones Atrial septal defect CHF (congestive heart failure) ([facility]) ([facility]) PVD (peripheral vascular disease) ([facility]) Family History Medical History Relation Name Comments Heart failure Mother Relation Name Status Comments Mother Social History Tobacco Use Types Packs/Day Years Used Date Smoking Tobacco: Former Cigarettes Smokeless Tobacco: Never OASIS D0700: Social Isolation Answer Da te Recorded Frequency of experiencing loneliness or isolatio n Never 01/19/2023 OASIS A1250: Transportation Answer Date Recorded Lack of Transportation (Medical) No 01/19/2023 Lack of Transportation (Non-Medical) No 01/19/2023 Patient Unable or Declines to Respond No 01/19/2023 OASIS B1300: Health Literacy Answer Jose e Recorded Frequency of needing help to read materials from doctor or pharmacy Never 01/19/2023 Social Connection and Isolat ion Panel [NHANES] Answer Date Recorded In a typical week, how many times do you talk on the phone with family, friends, or neighbors? More than three times a week 11/23/2022 How often do you get togethe r with friends or relatives? Three times a week 11/23/2022 How often do you attend chur or voodoo services? More than 4 times per year 11/23/2022 Do you belong to any clubs o r organizations such as jehovah's witness groups, unions, fraternal or athletic groups, or school groups? No 11/23/2022 How often do you attend meet ings of the clubs or organizations you belong to? Never 11/23/2022 Are you , , di vorced, , never , or living with a partner? Never 11/23/2022 AUDIT-C Answer Date Recorded Q1: How often do you have a drink containing alcohol? Never 06/26/2024 Q2: How many drinks containi ng alcohol do you have on a typical day when you are drinking? Patient does not drink Q3: How often do you have si x or more drinks on one occasion? Never 06/26/2024 Overall Financial Resource Strain (CARDIA) Answe r Date Recorded How hard is it for you to pa y for the very basics like food, housing, medical care, and heating? Not hard at all 11/23/2022 Hunger Vital Sign Answer Date Recorded Within the past 12 months, y ou worried that your food would run out before you got the money to buy more. Never true 11/24/19 23 Within the past 12 months, t he food you bought just didn't last and you didn't have money to get more. Never true 11/23/2022 PRAPARE - Transportation Answer Date Re corded In the past 12 months, has l ack of transportation kept you from medical appointments or from getting medications? No 10/31 In the past 12 months, has l ack of transportation kept you from meetings, work, or from getting things needed for daily living? No 11/23/2022 Housing Stability Vital Sign Answer Jose e Recorded In the last 12 months, was t here a time when you were not able to pay the mortgage or rent on time? No 11/23/2022 In the last 12 months, how many places have you lived? 1 11/23/2022 In the last 12 months, was t here a time when you did not have a steady place to sleep or slept in a snf (including now)? No 11/23/2022 Personal Safety Answer Date Recorded Have you ever been in or are you currently in a harmful physical or emotional relationship or is someone making you feel afraid or unsafe? Denies 06/26/2024 Comments No Sex and Gender Information Value Date Recorded Sex Assigned at Not on file Legal Sex Female 8:18 PM SENIOR SALES CONSULTANT Gender Identity Not on file Sexual Orientation Not on file Obstetrics History Last Filed Vital Signs Vital Sign Reading Time Taken Comments Blood Pressure 163/57 06/26/2024 12:50 PM SENIOR SALES CONSULTANT Pulse 63 06/26/2024 12:50 PM SENIOR SALES CONSULTANT Temperature 36 ??C (96.8 ??F) 06/26/2024 12:50 PM SENIOR SALES CONSULTANT Respiratory Rate 20 06/26/2024 12:50 PM SENIOR SALES CONSULTANT Oxygen Saturation 93% 06/26/2024 12:50 PM SENIOR SALES CONSULTANT Inhaled Oxygen Concentration - - Weight 105 kg (231 lb 7.7 oz) 06/26/2024 10:06 A M SENIOR SALES CONSULTANT Height 162.6 cm (5' 4 ) 06/26/2024 10:06 AM SENIOR SALES CONSULTANT Body Mass Index 39.73 06/26/2024 10:06 AM SENIOR SALES CONSULTANT Plan of Treatment Health Maintenance Due Date Last Done Comments Albumin Creatinine Ratio, Urine 1949 Colon Cancer Screening-Colonoscopy 1950 Depression Screening 1950 Hepatitis C Screening 1950 Osteoporosis Screening-Bone Density Scan 1949 Dilated Eye Exam 1949 Foot Exam 1949 Hepatitis B Screening 10/11/1967 Zoster Vaccine (1 of 2) 10/11/1999 Well Visit 65+ 2014 Breast Cancer Screening-Mammogram 03/07/2016 015 Hemoglobin A1C 04/03/2017 10/01/2016, 12/31, 11/11/2015, Additional history exists Pneumococcal vaccine 65+ (2 of 2 - PPSV23 or PCV20) 02/07/2018 12/13/2017, 05/04/2016 Lipid Panel 05/06/2023 05/06/2022, 11/29, 10/08/2020, Additional history exists eGFR 11/09/2024 11/10/2023, 11/30, 12/26/2022, Additional history exists Fall Risk Assessment 06/19/2025 06/19/2024, 11/25/19 23 DTaP/Tdap/Td Vaccine (5 - Td or Tdap) 10/31/2028 10/31/2018, 04/05/2015, 09/22/2010, Additional history exists Colon Cancer Screening-FIT Discontinued 02/19/2015 Influenza Vaccine Completed 06/14/2024, , 05/01/2019, Additional history exists Medical Devices Implanted Type Area Nanoscience Technician Device Identifier Shelf Expiration Date Model / Serial / Lot [employer] Frank Contour 6fr 26cm Large Inner Lumen Low Profile Bladder Gerard Taper Latex Free [id number] - [id number] Implanted:Qty: 1 on 11/22/2022 by Davida León MD at [facility] Left: Urethra [employer] Frank 10/11/2024 [id number] / / [id number] Procedures Procedure Name Priority Date/Time Associated Diagnosis Comments POCT GLUCOSE DEVICE Routine 06/26/2024 1 1:47 AM SENIOR SALES CONSULTANT HI AN ELECTIVE ENDOTRACHEAL AIRWAY Routine 06/26/2024 11:18 AM SENIOR SALES CONSULTANT HI AN ELECTIVE SUPRAGLOTTIC AIRWAY Routine 06/26/2024 11:08 AM SENIOR SALES CONSULTANT INSERTION SUPRAPUBIC TUBE 06/26/2024 10:57 AM SENIOR SALES CONSULTANT Stricture of female urethra, unspecified stricture type Urinary retention POCT GLUCOSE DEVICE Routine 06/26/2024 1 0:49 AM SENIOR SALES CONSULTANT ECG 12-LEAD STAT 06/26/2024 10:12 AM SENIOR SALES CONSULTANT POTASSIUM, WHOLE BLOOD STAT 06/26/2024 10:11 AM SENIOR SALES CONSULTANT POCT GLUCOSE DEVICE Routine 06/26/2024 1 0:01 AM SENIOR SALES CONSULTANT EGFR Routine 11/10/2023 11:59 AM CDT Essential hypertension Stage 3 chronic kidney disease, unspecified whether stage 3a or 3b CKD (HCC) Chronic diastolic heart failure (HCC) LIPID PANEL Routine 05/06/2022 11:13 AM CDT Dyspnea on exertion Coronary artery disease of salt [place] artery of [place] heart with stable angina pectoris (CMS/HCC) (HCC) Essential hypertension Venous stasis Dyslipidemia Hypertriglyceridemi a HEMOGLOBIN A1C Routine 10/01/2016 9:09 AM SENIOR SALES CONSULTANT DIAGNOSTIC MAMMOGRAM BILATERAL W TERA Routine 03/07/2015 9:18 AM CDT OCCULT BLOOD, FECAL (FIT) Routine 02/19/2015 12:15 AM CDT from Last 3 Months or Most Recently Relevant to Health Maintenance Results * (ABNORMAL) POCT glucose (06/26/2024 11:47 AM SENIOR SALES CONSULTANT) Glucose, POC 289(H) 70 - 199 mg/dL Blood 06/26/2024 11:4 7 AM SENIOR SALES CONSULTANT 06/26/2024 11:47 AM SENIOR SALES CONSULTANT Davida Cerna MD LAB POCT ORDERABLES - DEVICE F inal Result Performing Organization Address City/State/[facility] Co de Phone Number WILL MENDEZ (SURVEYOR) [address] [facility] Department [place] [address] * HI AN ELECTIVE ENDOTRACHEAL AIRWAY (06/26/2024 11:18 AM SENIOR SALES CONSULTANT) Narrative Rich Nugent CRNA - 06/26/2024 11:18 AM SENIOR SALES CONSULTANT Rich Nugent CRNA ? 06/26/2024 11:18 AM Airway Patient location: OR Urgency: elective Indications for airway management: anesthesia Difficult airway: no Staff: Placed by: BINDERY SUPERVISOR: Rich Nugent CRNA Emergent airway documentation: Risks and benefits discussed: yes Consent obtained: yes Consent given by: patient Airway prep: Preoxygenated: yes Patient position: sniffing MILS maintained throughout: yes Mask difficulty assessment: 0 - not attempted Sedation level during airway: GA Final airway details: Final airway type: endotracheal airway Tube type: ETT ETT size: 7.0 mm Cuffed: yes Technique used for successful ETT placement: video laryngoscopy Devices/Methods used in placement: stylet Insertion site: oral Blade type: Ilan Video blade type: Avendano Blade size: 3 Cormack-Lehane (video): grade I - full view of glottis Cuff volume: 7 mL Cuff inflated with: air ETT to teeth: 22 cm ETT to gums: 22 cm Placement verified by: auscultation and CO2 detection Airway secured with: silk tape Number of attempts: 1 us Nuno Lorenz MD ANESTHESIA ORDERABLES Final Result * HI AN ELECTIVE SUPRAGLOTTIC AIRWAY (06/26/2024 11:08 AM SENIOR SALES CONSULTANT) Narrative Rich Nugent CRNA - 06/26/2024 11:08 AM SENIOR SALES CONSULTANT Rich Nugent CRNA ? 06/26/2024 11:08 AM Airway Patient location: OR Urgency: elective Indications for airway management: anesthesia Difficult airway: no Staff: Placed by: BINDERY SUPERVISOR: Rich Nugent CRNA Emergent airway documentation: Risks and benefits discussed: yes Consent obtained: yes Consent given by: patient Airway prep: Preoxygenated: yes Patient position: sniffing MILS maintained throughout: yes Mask difficulty assessment: 0 - not attempted Sedation level during airway: GA Final airway details: Final airway type: supraglottic airway Final supraglottic airway: IGel SGA size: 4 Number of attempts: 1 us Nuno Lorenz MD ANESTHESIA ORDERABLES Final Result * (ABNORMAL) POCT glucose (06/26/2024 10:49 AM SENIOR SALES CONSULTANT) Glucose, POC 323(H) 70 - 199 mg/dL Blood 06/26/2024 10:4 9 AM SENIOR SALES CONSULTANT 06/26/2024 10:49 AM SENIOR SALES CONSULTANT Davida Cerna MD LAB POCT ORDERABLES - DEVICE F inal Result CERNER [facility] SURVEYOR) [address] [facility] Department of Laboratories [place] [phone] * ECG 12 lead (06/26/2024 10:12 AM SENIOR SALES CONSULTANT) 06/26/2024 10:1 2 AM SENIOR SALES CONSULTANT Narrative [facility] - 06/26/2024 1:09 PM SENIOR SALES CONSULTANT Vent Rate: 65 bpm RR Interval: 914 msec HI Interval: 300 msec QRS Duration: 101 msec QT Interval: 410 msec QTC Interval: 422 msec P-R-T [place]: 54 - -9 - 89 degrees IMPRESSION: SINUS RHYTHM WITH SINUS ARRHYTHMIA WITH FIRST DEGREE AV BLOCK INFERIOR MYOCARDIAL INFARCTION , PROBABLY OLD [40+ ms Q WAVE AND/OR ST/T ABNORMALITY IN II/aVF] ANTEROSEPTAL MYOCARDIAL INFARCTION , OF INDETERMINATE AGE [40+ ms Q WAVE IN V1- V4] ABNORMAL ECG No change compared to prior EKG Electronically Signed By: Stephen Abreu MD [facility] us Rosalinda Salgado MD ECG ORDERABLES Final Re sult Performing Organization Address City/[facility]/ZIP Co de Phone Number [facility] * (ABNORMAL) Potassium, whole blood (06/26/2024 10:11 AM SENIOR SALES CONSULTANT) [facility] Potassium, bld 5.0(H) 3.3 - 4.9 mmol/L Comment: Interpretive Data This method is not able to assess for hemolysis, which may falsely increase potassium concentrations. If further testing is needed to evaluate this result, consider in-laboratory plasma potassium. Current Interpretive Data was last revised on 2022. Blood 06/26/2024 10:1 1 AM SENIOR SALES CONSULTANT 06/26/2024 10:13 AM SENIOR SALES CONSULTANT us Rosalinda Salgado MD LAB BLOOD ORDERABLES Fin al Result Performing Organization Address [facility] Co de Phone Number [facility] (SURVEYOR) [address] [facility] [place] [address] * (ABNORMAL) POCT glucose (06/26/2024 10:01 AM SENIOR SALES CONSULTANT) [facility] Glucose, POC 368(H) 70 - 199 mg/dL Blood 06/26/2024 10:0 1 AM SENIOR SALES CONSULTANT 06/26/2024 10:01 AM SENIOR SALES CONSULTANT Davida Cerna MD LAB POCT ORDERABLES - DEVICE F inal Result Performing Organization Address [facility] Co de Phone Number [facility] (SURVEYOR) 1 [facility] [place] [place] [address] * (ABNORMAL) eGFR (11/10/2023 11:59 AM CDT) [facility] eGFR 52(L) >=60 mL/min/1. 73 m2 Comment: Interpretive Data Reference Interval Normal ?>/= 90 mL/min/1.73m2 Mildly decreased* ? 60 - 89 mL/min/1.73m2 Mildly to moderately decreased ?45 - 59 mL/min/1.73m2 Moderately to severely decreased ??30 - 44 mL/min/1.73m2 Severely decreased ?15 - 29 mL/min/1.73m2 Kidney Failure ?< 15 ??mL/min/1.73m2 *Relative to young adult level Estimated glomerular filtration rate is determined by the 2020 CKD-EPI equation recommended by the National Kidney Foundation (A Unifying Approach to GFR Estimation: Recommendations of the NKF-ASK Task Force on Reassessing the Inclusion of Race in Diagnosing Kidney Disease, JASN 2020). The CKD-EPI equation should not be used for patients with unstable renal function and has not been validated in children and those over 70. Current interpretive data was last reviewed 2021. Blood 11/10/2023 11:5 9 AM CDT 11/10/2023 12:11 PM CDT us Nikolay Pereyra MD LAB BLOOD ORDERABLES F inal Result [facility] [address] [facility] [place] [address] * (ABNORMAL) Lipid panel (05/06/2022 11:13 AM CDT) Cholesterol 222(H) 30 - 199 mg/dL [facility] Comment: Interpretive Data Ages < or = 19 years ??Acceptable: ? <170 mg/dL ??Borderline high: ??170-199 mg/dL ??High: ? >or= 200 mg/dL Ages > or = 20 years ??Desirable: ?<200 mg/dL ??Borderline high: ??200-239 mg/dL ??High: ? >or= 240 mg/dL Literature References: 1. Expert Panel on Integrated Guidelines for Cardiovascular Health and Risk Reduction in Children and Adolescents. Pediatrics 2011;128:S213 2. NCEP Expert Panel. Circulation 2004;110:227 Current Interpretive Data was last revised on 2018. Triglycerides 276(H) <=149 mg/dL WILL Comment: Interpretive Data Ages < or = 9 years ??Acceptable: ? <75 mg/dL ??Borderline high: ??75-99 mg/dL ??High: ? >or= 100 mg/dL Ages 10 to 20 years ??Acceptable: ? <90 mg/dL ??Borderline high: ??90-129 mg/dL ??High: ? >or= 130 mg/dL Ages > or = 20 years ??Desirable: ?<150 mg/dL ??Borderline high: ??150-199 mg/dL ??High: ? 200-499 mg/dL ?Very high: ?? >or= 499 mg/dL Literature References: 1. Expert Panel on Integrated Guidelines for Cardiovascular Health and Risk Reduction in Children and Adolescents. Pediatrics 2011;128:S213 2. NCEP Expert Panel. Circulation 2004;110:227 Current Interpretive Data was last revised on 2018. HDL 41 >=40 mg/dL WILL Comment: Interpretive Data Ages < or = 19 years ??Acceptable: ? >45 mg/dL ??Borderline low: ?? 40-45 mg/dL ??Low: ? <40 mg/dL Ages > or = 20 years ??Desirable: ?>or= 60 mg/dL ??Low: ? <40 mg/dL Literature References: 1. Expert Panel on Integrated Guidelines for Cardiovascular Health and Risk Reduction in Children and Adolescents. Pediatrics 2011;128:S213 2. NCEP Expert Panel. Circulation 2004;110:227 Current Interpretive Data was last revised on 2018. LDL, calculated 126 <=129 mg/dL WILL Comment: Interpretive Data Ages < or = 19 years ??Acceptable: ? <110 mg/dL ??Borderline high: ??110-129 mg/dL ??High: ?>or= 130 mg/dL Ages > or = 20 years ??Optimal: ? <100 mg/dL ??Near optimal: ?100-129 mg/dL ??Borderline high: ?? 130-159 mg/dL ??High: ?>160 mg/dL Literature References: 1. Expert Panel on Integrated Guidelines for Cardiovascular Health and Risk Reduction in Children and Adolescents. Pediatrics 2011;128:S213 2. NCEP Expert Panel. Circulation 2004;110:227 Current Interpretive Data was last revised on 2018. Non-HDL Cholesterol 181 mg/dL [facility] Comment: Interpretive Data Ages < or = 19 years ??Acceptable: ?<120 mg/dL ??Borderline high: ??120-144 mg/dL ??High: ?>145 mg/dL Ages > or = 20 years ??When triglycerides are >200 mg/dL, Non-HDL cholesterol is a secondary target of ? therapy with treatment goals that are 30 mg/dL greater than the LDL cholesterol target. ? Literature References: 1. Expert Panel on Integrated Guidelines for Cardiovascular Health and Risk Reduction in Children and Adolescents. Pediatrics 2011;128:S213 2. NCEP Expert Panel. Circulation 2004;110:227 Current Interpretive Data was last revised on 2018. Chol/HDL ratio 5 [facility] Blood 05/06/2022 11:1 3 AM CDT 05/06/2022 11:20 AM CDT us Jacki Rudolph MD LAB BLOOD ORDERABLES F inal Result [facility] [id number] [facility] [place] [address] * (ABNORMAL) Hemoglobin A1c (10/01/2016 9:09 AM SENIOR SALES CONSULTANT) Hemoglobin A1c % 9.8(H) 4.8 - 5.9 % 10/01/2016 9:53 AM SENIOR SALES CONSULTANT [facility] HISTORICAL RESULTS Comment: [place] [employer] recommends that the goal of therapy should be an A1C hemoglobin of <7%. Reevaluate the treatment regimen in patients with an A1C >8%. 10/01/2016 9:09 AM SENIOR SALES CONSULTANT 10/01/2016 9:36 AM SENIOR SALES CONSULTANT Narrative [facility] HISTORICAL RESULTS - 10/01/2016 9:53 AM SENIOR SALES CONSULTANT 12 HOURS FASTING Chris Ann DO LAB BLOOD ORDERABLES Fin al Result [facility] HISTORICAL RESULTS * Diagnostic Mammogram Bilateral W Tera (03/07/2015 9:18 AM CDT) Anatomical Region Laterality Modality Breast Bilateral Mammography 03/07/2015 9:18 AM CDT Impressions 03/07/2015 10:11 AM CDT BIRADS 2: ??BENIGN 1. ??No suspicious left breast mammographic findings are evident. ??Specifically, there is no discernible left breast skin thickening. ??The partially imaged skin thickening evident on the previous CT may have been related to the patient's prior generalized anasarca. ??Clinical follow-up is recommended. 2. ??No mammographic evidence malignancy involving either breast. Routine annual screening mammography is recommended. ??The patient has been contacted. Electronically signed by: Rich Rodríguez md/:03/07/2015 10:10:05 ?? Starting Gate Driver: Norma HARMON (Daysi)(Ирина), [facility] letter sent: Normal Exam ?? Reading location: BI-RADS: 2 Benign [EOD] Narrative 03/07/2015 10:11 AM CDT - LONNIE BILAT DIAGNOSTIC 3D W/CAD BILATERAL DIGITAL DIAGNOSTIC MAMMOGRAM 3D/2D WITH CAD WITH MEDIOLATERAL OBLIQUE CRANIOCAUDAL: 03/07/2015 The study was acquired using full field digital technology and interpreted from soft copy. ?? Current study was also evaluated with ICAD version 7.2. CLINICAL: Follow-up of left breast skin thickening seen on recent CT abdomen/pelvis. ?? COMPARISONS: ??02/18/2015 CT abdomen/pelvis - [facility], ??06/20/2013 mammogram and 12/02/2009 mammogram - [facility]. ?? BREAST TISSUE: There are scattered areas of fibroglandular density. ?? FINDINGS: Vascular calcifications and other scattered benign-appearing calcifications are present within both breasts. No suspicious mass, calcifications, skin thickening, or other suspicious mammographic findings are identified. Physical exam of the left breast demonstrates no discernible palpable mass, skin thickening, or other suspicious skin changes. Procedure Note Provider, MD Angelique - 12/15/2020 - LONNIE BILAT DIAGNOSTIC 3D W/CAD BILATERAL DIGITAL DIAGNOSTIC MAMMOGRAM 3D/2D WITH CAD WITH MEDIOLATERALOBLIQUE CRANIOCAUDAL: 03/07/2015 The study was acquired using full field digital technology and interpretedfrom soft copy. Current study was also evaluated with Pressmart version 7.2. CLINICAL: Follow-up of left breast skin thickening seen on recent CT abdomen/pelvis. COMPARISONS: 02/18/2015 CT abdomen/pelvis - [facility], 06/20/2013 mammogram and 12/02/2009 mammogram - [facility]. BREAST TISSUE: There are scattered areas of fibroglandular density. FINDINGS: Vascular calcifications and other scattered benign-appearing calcifications are present within both breasts. No suspicious mass, calcifications, skin thickening, or other suspicious mammographic findingsare identified. Physical exam of the left breast demonstrates no discernible palpablemass, skin thickening, or other suspicious skin changes. IMPRESSION: BIRADS 2: BENIGN 1. No suspicious left breast mammographic findings are evident.Specifically, there is no discernible left breast skin thickening. The partiallyimaged skin thickening evident on the previous CT may have been related to the patient's prior generalized anasarca. Clinical follow-up isrecommended. 2. No mammographic evidence malignancy involving either breast. Routine annual screening mammography is recommended. The patient has been contacted. Electronically signed by: Rich Rodríguez md/:03/07/2015 10:10:05 Starting Gate Driver: Norma Aguilera)(Ирина), [facility] letter sent: Normal Exam Reading location: BI-RADS: 2 Benign [EOD] us Chris Ann DO IMG MAMMO PROCEDURES Fin al Result * Occult blood, fecal non neoplasm screening (02/19/2015 12:15 AM CDT) Stool Occult Blood NEGATIVE NEGATIVE 02/19/2015 4:17 AM CDT [facility] HISTORICAL RESULTS 02/19/2015 12:1 5 AM CDT 02/19/2015 3:37 AM CDT Narrative [facility] HISTORICAL RESULTS - 02/19/2015 4:17 AM CDT Collected By djt us Chris Ann DO LAB BODY FLUIDS AND STOO LS ORDERABLES Final Result [facility] HISTORICAL RESULTS from Last 3 Months or Most Recently Relevant to Health Maintenance Insurance MEDICARE SOLUTIONS IDAL MEDICARE SOLUTIONS IDPA MEDICARE [place] [place] [address] MEDICARE SOLUTIONS Advance Directives For more information, please contact: [phone] * Full Code (Latest Code Status on File) Date Activated Date Inactivated Comments 11/19/2022 3:04 PM 11/24/2022 6:46 PM Care Teams Door Worker Relationship Specialty Start Date End Date Nubia Lopez NP [address] [place] [address] [place] [address] PCP - General Family Medicine 06/20/24
--- OUTSIDE RECORDS SUMMARY | 2024-08-28 13:07 | XMS_ITS | CONTINUITY OF CARE DOCUMENT ---
Author Name iwona ashleydiane Address Unknown Organization [facility] Address [address] [facility] [address] [place] [address] Phone [phone] Care Team Providers Care Research And Insights Executive Name Role Phone Kt Lizama MD Unavailable [phone] MARCELL CARVER Unavailable SHAY PET CAREGIVER, DELORA Unavailable PROBLEMS Condition Status Date Provider Notes Cardiology examination active Kt Lizama MD VENOUS INSUFFICIENCY active Kt Lizama MD HTN essential active Kt Lizama MD Diabetes mellitus active Kt Lizama MD Leg edema, bilateral active Kt Lizama MD Shortness of breath on exertion active Anyi Lizama MD Abnormal EKG active Kt Lizama MD Near syncope active Kt Lizama MD Hyperlipidemia active Kt Lizama MD ENCOUNTERS Date Type Provider Location Encounter Diag nosis - In-person encounter Office Visit Kt Lizama MD [facility] - In-person encounter Office Visit Kt Lizama MD TeleHealth - In-person encounter Office Visit Kt Lizama MD [facility] - In-person encounter Office Visit Kt Lizama MD [facility] Shortness of breath on exertionAbnormal EKGNear syncopeHyperlipidemia - In-person encounter Office Visit Kt Lizama MD [facility] Cardiology examinationVENOUS INSUFFICIENCYHTN essentialDiabetes mellitusLeg edema, bilateral VITAL SIGNS Date Observation Value Provider Body Mass Index (Ratio) 40.09 kg/m2 Anyi Lizama MD blood pressure, diastolic 80 mm[Hg] Mark Lorenzodarcie Rutherford blood pressure, systolic 166 mm[Hg] Renetta Garcia Rutherford oxygen saturation, oximetry 93 % James Rutherford respiratory rate E&M 18 /min Julia Rutherford pulse rate 68 /min James arzate weight E&M 233.6 [lb_av] James juneon height E&M 64 [in_i] James Snyder [facility] Body Mass Index (Ratio) 39.48 kg/m2 Anyi Lizama MD respiratory rate E&M 18 /min [facility] [place] [place] blood pressure, diastolic 70 mm[Hg] To nsha Dunbar blood pressure, systolic 162 mm[Hg] Ton sha Dexter blood pressure, resting Yes [facility] aguillon Dunbar pulse rate 75 /min Tonsha Dunbar oxygen saturation, oximetry 96 % [facility] weight E&M 230 [lb_av] Tonsha Dunbar height E&M 64 [in_i] Tonsha Dunbar Body Mass Index (Ratio) 38.62 kg/m2 Anyi Lizama MD respiratory rate E&M 18 /min Maggie Chapin blood pressure, cuff size regular Cy britney Chapin blood pressure, diastolic 70 mm[Hg] Cy britney Chapin blood pressure, systolic 142 mm[Hg] Paulette Chapin pulse rate 71 /min Maggie sinclair oxygen saturation, oximetry 94 % Maggie Chapin weight E&M 225 [lb_av] Maggie sinclair height E&M 64 [in_i] Maggie sinclair Body Mass Index (Ratio) 38.45 kg/m2 Anyi Lizama MD blood pressure, cuff size regular Cy britney Chapin blood pressure, diastolic 70 mm[Hg] Cy britney Chapin blood pressure, systolic 144 mm[Hg] Paulette Chapin respiratory rate E&M 18 /min Maggie Chapin oxygen saturation, oximetry 97 % Maggie Chapin pulse rate 72 /min Maggie sinclair height E&M 64 [in_i] Maggie sinclair weight E&M 224 [lb_av] Maggie sinclair ALLERGIES Allergy Name Onset Date Reaction Criticality Status SULFACETAMIDE SODIUM Low Criticality active LATEX GLOVES Low Criticality active PENICILLIN G PROCAINE Low Criticalit y active RESULTS Date Observation Value Provider Reference Range Interpretation Location 3 prothrombin time (patient) 10.7 s [facility] 9.1-12.0 3 international normalized ratio (INR) 1.0 [facility] 0.8-1.2 3 lipoprotein, beta, serum, point, quantitative, calculated 158 mg/dL [facility] 0-99 High 3 very low density lipoproteins 29 mg/dL [facility] 5-40 3 HDL cholesterol, serum 38 mg/dL [facility] >39 Low 3 triglyceride, serum, random 147 mg/dL [facility] 0-149 3 cholesterol, serum 225 mg/dL [facility] 100-199 High 3 calcium, serum 9.4 mg/dL [facility] 8.7-10.3 3 carbon dioxide, venous blood 30 mmol/L [facility] 20-29 High 3 chloride, serum 100 mmol/L [facility] 96-106 3 potassium, serum 4.5 mmol/L [facility] 3.5-5.2 3 sodium, serum 143 mmol/L [facility] 217-877 4023/12/1 3 urea nitrogen/creatinin e ratio, serum 30 [facility] 12-28 High 3 eGFR if 73 mL/min/{1. 73_m2} [facility] >59 3 eGFR if not 63 mL/min/{1. 73_m2} [facility] >59 3 creatinine, serum 0.93 mg/dL [facility] 0.57-1.00 3 urea nitrogen, blood 28 mg/dL [facility] 8-27 High 3 blood glucose, random 130 mg/dL [facility] 65-99 High 3 basophil count, absolute 0.0 x10E3/uL [facility] 0.0-0.2 3 Eosinophil Absolute Count 0.3 X10E3/UL [facility] 0.0-0.4 3 monocyte count, blood, automated 0.6 X10E3/UL [facility] 0.1-0.9 3 lymphocyte count, blood, automated 1.6 X10E3/UL [facility] 0.7-3.1 3 Absolute Neutrophils 5.3 X10E3/UL [facility] 1.4-7.0 3 basophils as percent of blood leukocytes 1 % [facility] Not Estab. 3 eosinophils as percent of blood leukocytes 4 % [facility] Not Estab. 3 monocytes as percent of blood leukocytes 8 % [facility] Not Estab. 3 lymphocytes as percent of blood leukocytes 20 % [facility] Not Estab. 3 neutrophils as percent of blood leukocytes 67 % [facility] Not Estab. 3 platelet count 256 X10E3/UL [facility] 523-144 2528/12/1 3 red blood cell distribution width 13.8 % [facility] 12.3-15.4 3 mean corpuscular hemoglobin concentration, RBC 33.0 G/DL [facility] 31.5-35.7 3 mean corpuscular hemoglobin, RBC 30.0 pg [facility] 26.6-33.0 3 mean corpuscular volume, RBC 91 fL [facility] 79-97 3 hematocrit, blood 37.9 % [facility] 34.0-46.6 3 hemoglobin, blood 12.5 g/dL [facility] 11.1-15.9 3 erythrocyte (RBC) count 4.16 X10E6/UL [facility] 3.77-5.28 3 leukocyte count, blood 7.8 X10E3/UL [facility] 3.4-10.8 HISTORY OF MEDICATION USE Medication Status Instructions Dates Provider Indications Com ments atorvastatin 40 mg tablet active TAKE 1 TABLET BY MOUTH DAILY Irene Rose JARDIANCE 10 MG ORAL TABLET completed One tab by mouth daily. - James Rutherford ISOSORBIDE MONONITRATE ER 30 MG ORAL TABLET EXTENDED RELEASE 24 HOUR completed one tab. daily - James Rutherford atorvastatin 40 mg tablet completed Take 1 tablet by mouth once a day - [facility] calcium carb-D3-mag [id number] [phone] ar-yelv-sj-mg tablet active Take 1 tablet by mouth once a day Maggie Chapin aspirin 81 mg tablet,delayed release (DR/EC) active Take 1 tablet by mouth once a day Maggie Chapin clopidogrel 75 mg tablet active Take 1 tablet by mouth once a day Maggie Chapin diazepam 10 mg tablet active Take 1 tablet by mouth every night Maggie Chapin #30, 30 days supply, Prescribed by RODOLFO DECKER, Filled 12/24/2018 hydrocodone-aceta minophen 5-325 mg tablet active Take 1 tablet by mouth twice a day as needed Maggie Chapin #60, 30 days supply, Prescribed by MARCELL DAY, Filled 12/27/2018 ergocalciferol (vitamin D2) 1,250 mcg (50,000 unit) capsule active Take 1 capsule by mouth once a week Maggie Chapin #12, 84 days supply, Prescribed by RODOLFO DECKER, Filled 12/14/2018 Lantus Solostar U-100 Insulin 100 unit/mL (3 mL) insulin pen active INJ 30 UNITS SC D IN THE MORNING AND 60 UNITS D IN THE NEREYDA Maggie Chapin #42, 30 days supply, Prescribed by GEOVANNI HUGHES, Filled 11/17/2018 Novolog Flexpen U-100 Insulin 100 unit/mL (3 mL) insulin pen active subcutaneously Maggie Chapin #15, 84 days supply, Prescribed by MARCELL DAY, Filled 12/26/2018 CLINDAMYCIN HCL 300 MG ORAL CAPSULE completed TK 1 C PO TID FOR 7 DAYS - Maggie Chapin #21, 7 days supply, Prescribed by MARCELL DAY, Filled 12/28/2018 lisinopril 40 mg tablet active Take 1 tablet by mouth once a day Maggie Chapin #90, 90 days supply, Prescribed by MARCELL DAY, Filled 12/27/2018 SOCIAL HISTORY Date Observation Value Provider alcohol use no Kt Lizama MD social history E&M S moking History: Agustín crouch is a former smoker. Kt Lizama MD social history reviewed E&M revi ewed - no changes required Kt Lizama MD smoking, year quit 1983 James Rutherford smoking history, tot al pack/day 1/2 PPD James Rutherford cigarette use yes James short smoking status Former smoker James St fritz social history E&M S moking History: Agustín crouch is a former smoker. Todd Temple social history reviewed E&M revi ewed - no changes required Todd Temple smoking status Former smoker Todd aiken social history E&M S moking History: Agustín crouch is a former smoker. Kt Lizama MD social history reviewed E&M revi ewed - no changes required Kt Lizama MD smoking, year quit 1982 Tonsha Mo ss smoking history, tot al pack/day 1/2 PPD Tonsha Dunbar cigarette use yes Tonsha Dunbar smoking status Former smoker Tonsha Dunbar social history E&M S moking History: Agustín crouch is a former smoker. Kt Lizama MD social history reviewed E&M revi ewed - no changes required Kt Lizama MD smoking, year quit 1982 Maggie karimi smoking history, tot al pack/day 1/2 PPD Maggie Chapin cigarette use yes Maggie hess smoking status Former smoker Maggie maxwell number of grandchildren Kt Lizama MD U mai Lizama MD alcohol use no Kt Lizama MD social history E&M S moking History: Agustín crouch is a former smoker. Kt Lizama MD social history reviewed E&M revi ewed - no changes required Kt Lizama MD smoking history, tot al pack/day 1/2 PPD Maggie Chapin smoking, year quit 1982 Maggie karimi cigarette use yes Maggie hess smoking status Former smoker Maggie Steven maxwell FAMILY HISTORY Family Member Condition Full Brother Family History of Di abetes: Mother Family History Breas t Cancer: INSURANCE PROVIDERS Payer name Policy type / Coverage type [employer] [facility] Other [facility] COMPLETE CARE [id number] (PPO C-SNP) Commercial insurance company [id number] HEALTHCARE AND FAMILY SERVICES Medicaid 1 [id number] ADVANCE DIRECTIVES Name Date POWER OF ASSOCIATE PROFESSOR OF GEOLOGY TREATMENT PLAN Date Name Performer Cardiology:Needs to make sure her cholesterol levels are better on statin Her updated medication list for this problem includes: Atorvastatin Calcium 40 Mg Oral Tablet (Atorvastatin calcium) ..... One tablet daily Kt Lizama MD Cardiology:No reccur ance of episodes Kt Lizama MD Cardiology Kt Lizama MD Cardiology:Skin joanie ins hyperpigmented and she complains of swelling b/l. No pain or ulcers at this time. She is clear for her L foot surgery from a cardiovascular standpoint and is low risk. Mild, non-obstructive CAD on cath 07/2019. Advised to continue compression and will f/u in 6 months. Kt Lizama MD Cardiology:Elevated today BP today: 166/80 P rior BP: 162/70 (08/13/2019) Kt Lizama MD TeleHealth: H er updated medication list for this problem includes: Atorvastatin Calcium 40 Mg Oral Tablet (Atorvastatin calcium) ..... One tablet daily Todd Temple TeleHealth: P rior BP: 162/70 (08/13/2019) Labs Reviewed: C reat: 0.93 (07/13/2019) C hol: 225 (07/13/2019) HDL: 38 (07/13/2019) Todd Temple TeleHealth:Per PCP. HgA1c from 10/03/19 was 9.9%. Pt reports that she has changed her diet since last labs were done. Recommend that she continue this. Will add Jardiance 10 mg daily. Todd Temple TeleHealth:No recurr ence. Mild, non-obstructive CAD on cath 07/2019. Todd Temple Cardiology: B P today: 162/70 P rior BP: 142/70 (07/12/2019) Labs Reviewed: C reat: 0.93 (07/13/2019) C hol: 225 (07/13/2019) HDL: 38 (07/13/2019) Kt Lizama MD Cardiology Kt Lizama MD Cardiology:As above, cath showed mild, non-obstructive CAD. Kt Lizama MD Cardiology:No recurr ence. With mild, non-obstructive CAD, she should just keep an eye on her symptoms and we will see her in three months unless she has an episode prior to that. Kt Lizama MD Cardiology follow up :Per PCP Us maría Lizama MD Cardiology follow up : H er updated medication list for this problem includes: Simvastatin 10 Mg Oral Tablet (Simvastatin) ..... One tab. at bedtime Kt Lizama MD Cardiology follow up : B P today: 142/70 P rior BP: 144/70 (01/11/2019) Kt Lizama MD Cardiology follow up :EKG shows normal sinus rhythm with ST-T wave changes inferolaterally, which are new. Kt Lizama MD Cardiology follow up :It is possible she suffered an ID. However, for two weeks she has not had any similar symptoms. I will start her on Imdur 30 mg and recommend doing a cardiac cath. Kt Lizama MD Cardiology New Patient Kt steele MD Cardiology New Patie nt :Will check an echo and a standing venous doppler. Kt Lizama MD Cardiology New Patient :Per PCP. A1c was 10.5%. Kt Lizama MD Cardiology New Patie nt : B P today: 144/70 Kt Lizama MD Cardiology New Patie nt :Continue compression. Will do a standing venous doppler and ELOISA. Further recommendations will be based on the findings. Kt Lizama MD Date Name PROTHROMBIN TIME WIT H INR LIPID PANEL CBC (INCLUDES DIFF/P LT) BASIC METABOLIC PANE L W/EGFR Cardiac Cath - Left - GC Complete Echo Venous Doppler Bilat eral LE - Reflux Arterial Duplex Bi-L ower EX HISTORY OF PROCEDURES Procedure Date Procedure Name Provider Procedure Notes S tatus EKG Kt Lizama MD completed EKG Kt Lizama MD completed
--- OUTSIDE RECORDS SUMMARY | 2024-08-28 13:07 | XMS_ITS | Encounter Summary ---
Author Organization [facility] Facility Care Team Providers Care Motor Coach Supervisor Name Role Phone Chris Ann DO Primary Care Provider + Adele Wharton MD Primary Care Provider + Nubia Lopez NP Primary Care Provider [phone] Encounter Details Date Type Department Care Team (Latest Contact Info) Description 10/06/2015 Orders Only [facility] CLINCONV Provider, MD Angelique [address] [place] [address] Social History Tobacco Use Types Packs/Day Years Used Date Smoking Tobacco: Never Assessed Comments Unknown Sex and Gender Information Value Date Recorded Sex Assigned at Not on file Legal Sex Female 8:18 PM TECH ED/WOODSHOP TEACHER Gender Identity Not on file Sexual Orientation Not on file documented as of this encounter Plan of Treatment Not on file documented as of this encounter Procedures Procedure Name Priority Date/Time Associated Diagnosis Comments SCAN - LABS 10/06/2015 12:00 AM TECH ED/WOODSHOP TEACHER SCAN - LABS 10/06/2015 12:00 AM TECH ED/WOODSHOP TEACHER SCAN - LABS 10/06/2015 12:00 AM TECH ED/WOODSHOP TEACHER documented in this encounter Results * SCAN - LABS (10/06/2015 12:00 AM TECH ED/WOODSHOP TEACHER) Narrative 10/06/2015 12:00 AM TECH ED/WOODSHOP TEACHER Ordered by an unspecified provider. Historical Provider MD Final Res ult * SCAN - LABS (10/06/2015 12:00 AM TECH ED/WOODSHOP TEACHER) Narrative 10/06/2015 12:00 AM TECH ED/WOODSHOP TEACHER Ordered by an unspecified provider. Historical Provider MD Final Res ult * SCAN - LABS (10/06/2015 12:00 AM TECH ED/WOODSHOP TEACHER) Narrative 10/06/2015 12:00 AM TECH ED/WOODSHOP TEACHER Ordered by an unspecified provider. Historical Provider Final Res ult documented in this encounter Visit Diagnoses Not on filedocumented in this encounter Care Teams Motor Coach Supervisor Relationship Specialty Start Date End Date Chris Ann DO PCP - General Family Medicine 11/08/19 03/28/20 Adele Wharton MD [address] [place] [address] PCP - General 03/29/20 06/19/24 Nubia Lopez NP [address] [place] [address] PCP - General Family Medicine 06/20/24 documented as of this encounter
--- OUTSIDE RECORDS SUMMARY | 2024-08-28 13:07 | XMS_ITS | Encounter Summary ---
Author Organization [facility] Facility Care Team Providers Care Graining Press Operator Name Role Phone Chris Ann DO Primary Care Provider + Adele Wharton MD Primary Care Provider + Nubia Lopez NP Primary Care Provider [phone] Encounter Details Date Type Department Care Team (Latest Contact Info) Description 10/17/2014 Orders Only MMG CLINCONV Provider, MD Angelique [address] [place] [address] Social History Tobacco Use Types Packs/Day Years Used Date Smoking Tobacco: Never Assessed Comments Unknown Sex and Gender Information Value Date Recorded Sex Assigned at Not on file Legal Sex Female 8:18 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 us Historical Provider CV CARDIAC SERVICES MAXI READ Final Result documented in this encounter Visit Diagnoses Not on filedocumented in this encounter Care Teams Graining Press Operator Relationship Specialty Start Date End Date Alto, Chris Trell, DO PCP - General Family Medicine 11/08/19 03/28/20 Adele Wharton MD [address] [place] [address] PCP - General 03/29/20 06/19/24 Nubia Lopez NP [address] [place] [address] PCP - General Family Medicine 06/20/24 documented as of this encounter
--- OUTSIDE RECORDS SUMMARY | 2024-08-28 13:07 | XMS_ITS | Referral Summary ---
Author Organization [facility] Address [address] [place] [address] Care Team Providers Care Preparatory Technician Name Role Phone Nubia Lopez NP Primary Care Provider [phone] Encounters Date Type Department Care Team Description 06/26/2024 11:30 AM JAVA TECHNICAL ARCHITECT - 06/26/2024 12:15 PM JAVA TECHNICAL ARCHITECT Surgery [facility] Operating Room [address] [place] [address] Davida León MD INSERTION SUPRAPUBIC TUBE with cystoscopy 06/26/2024 10:58 AM JAVA TECHNICAL ARCHITECT Anesthesia Event [facility] Operating Room [address] [place] [address] Nuno Lorenz MD Kory, Christopher James, MD 06/26/2024 9:21 AM JAVA TECHNICAL ARCHITECT - 06/26/2024 1:05 PM JAVA TECHNICAL ARCHITECT Hospital Encounter [facility] Operating Room [address] [place] [address] Davida León MD Discharge Disposition: Discharge to home or self care 06/06/2024 10:00 AM JAVA TECHNICAL ARCHITECT Office Visit [facility] Pulmonology [address] [facility] [address] [place] [id number] Luigi Yost MD Panlobular emphysema (HCC) (Primary Dx); Pulmonary arteriovenous malformation; Exercise hypoxemia; Snoring from Last 3 Months Allergies Active Allergy Reactions Criticality Noted Date [...] skin daily before breakfast 11/03/19 22 Active radRounds Radiology NetworkTouch Delica Plus Lancet 33 gauge misc 3 (three) times a day 10/02/19 22 Active [facility] [employer] NetworkToEasiest Credit Card To Get Approved For Verio Reflect Meter misc USE TO TEST BLOOD SUGAR THREE TIMES DAILY 10/02/19 22 Active [employer] [employer]asi[employer] Credit Card To Get Approved For Verio test strips strip 3 (three) times [...] mg tabletIndications :Dyslipidemia,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) Take 1 tablet (40 mg total) by mouth daily 90 tablet 3 11/10/19 24 Active chlorthalidone (HYGROTON) 25 mg tabletIndications :Dyspnea on exertion,Dyslipid emia Take 1 tablet (25 mg total) by mouth daily 90 tablet 3 11/10/19 24 Active clopidogreL (PLAVIX) 75 mg tabletIndications :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),TIA (transient ischemic attack) Take 1 tablet (75 mg total) by mouth daily 90 tablet 3 11/10/19 24 025 Active lisinopriL (PRINIVIL,ZESTRIL ) 40 mg tabletIndications :Essential hypertension Take 1 tablet (40 mg total) by mouth daily 90 tablet 3 11/10/19 24 025 Active spironolactone (ALDACTONE) 25 mg tabletIndications :Dyspnea on exertion,Dyslipid emia,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 Assessment & Plan (10/05/2023 10:31 AM JAVA TECHNICAL ARCHITECT): The patient continues with positional therapy. Assessment & Plan (04/06/2023 10:12 AM CDT): Due to the snoring, the patient will continue with positional therapy. I have offered a nocturnal polysomnogram. Patient would like to wait at this time Assessment & Plan (08/27/2022 10:32 AM JAVA TECHNICAL ARCHITECT): Due to the patient having difficulty breathing [...] associat ed with type 2 diabetes mellitus ([facility]) 12/29/2021 Open wound of left lower leg [...] 02/22/2018 Assessment & Plan (06/06/2024 10:22 AM JAVA TECHNICAL ARCHITECT): The patient continues to use oxygen at 2 liters/minute while sleeping and p.r.n. during the day Assessment & Plan (10/05/2023 10:31 AM JAVA TECHNICAL ARCHITECT): The patient will continue to use 2 L of oxygen at night and during the day as needed. Assessment & Plan (04/06/2023 10:13 AM CDT): Continues to wear 2 L of oxygen with activity and while sleeping Assessment & Plan (08/27/2022 10:32 AM JAVA TECHNICAL ARCHITECT): Patient states she does use oxygen during the day and at nighttime. Assessment & Plan (01/29/2022 11:12 AM CDT): Patient states she does any oxygen during the day but she is using oxygen at night. Assessment & Plan (06/10/2021 9:42 AM JAVA TECHNICAL ARCHITECT): The patient continue to use 2 L of oxygen with activity. Vitamin D deficiency 01/10/2018 Chronic obstructive pulmonary disease 11/02/2017 Assessment & Plan (06/06/2024 10:21 AM JAVA TECHNICAL ARCHITECT): The patient has stage II COPD/centrilobular emphysema and continues to use an albuterol inhaler on a p.r.n. basis. She is currently doing well. She will follow up with Dr. Castro in 6 months. Assessment & Plan (10/05/2023 10:31 AM JAVA TECHNICAL ARCHITECT): Patient will continue with albuterol as needed up to 4 times a day for shortness of breath. Assessment & Plan (08/27/2022 10:31 AM JAVA TECHNICAL ARCHITECT): Patient continues Trelegy one inhalation once a [...] breath. Assessment & Plan (06/10/2021 9:42 AM JAVA TECHNICAL ARCHITECT): Patient continue to use Trelegy 1 inhalation [...] 09/27/2017 Assessment & Plan (06/06/2024 10:22 AM JAVA TECHNICAL ARCHITECT): There was no evidence of a pulmonary AVM on the transesophageal echocardiogram performed in 2020 but she did have evidence of a patent foramen ovale. She continues to follow with Cardiology. Assessment & Plan (10/05/2023 10:31 AM JAVA TECHNICAL ARCHITECT): Patient continues to follow with Cardiology. Assessment & Plan (04/06/2023 10:12 AM CDT): Continues to follow with Cardiology Assessment & Plan (08/27/2022 10:32 AM JAVA TECHNICAL ARCHITECT): The patient continues to follow with cardiology. Assessment & Plan (01/29/2022 11:11 AM CDT): Was not seen on the echo in June of 2021. Patient does have patent foramen ovale. She has seen Dr. Rudolph. Assessment & Plan (06/10/2021 9:42 AM JAVA TECHNICAL ARCHITECT): The patient has a transesophageal echo scheduled [...] neuropathy, with long-term current use of insulin ([facility]) 09/30/2016 Sinusitis 06/23/2016 Hematuria, unspecified 11/06/2015 Urinary tract infection 11/06/2015 Resolved Problems Problem Noted Date Diagnosed Date Resolved Date Left ureteral stone 11/21/2022 11/24/19 Hydroureteronephrosis 11/21/20222022 Osteomyelitis of fifth toe o f right foot ([facility]) 11/19/2022 11/24/2022 Centrilobular emphysema 04/24/2021 11/0 12/2023 [...] I will have an order sent to [facility] for her to obtain a portable oxygen concentrator. Acute thromboembolism of alessandra p veins of lower extremity ([facility]) 12/23/2016 11/19/2022 Social History Tobacco Use Types Packs/Day Years [...] 11/23/2022 How often do you attend chur ch or hindu services? More than 4 times per year 11/23/2022 Do you belong to any clubs o r organizations such as rastafari groups, unions, fraternal or athletic groups, or [...] place to sleep or slept in a group home (including now)? No 11/23/2022 Personal Safety Answer Date Recorded Have you ever been in or are you currently in a harmful physical or emotional relationship or is someone making you feel afraid or unsafe? Denies 06/26/2024 Comments No Sex and Gender Information Value Date Recorded Sex Assigned at Not on file Legal Sex Female 8:18 PM JAVA TECHNICAL ARCHITECT Gender Identity Not on file Sexual Orientation Not on file Last Filed Vital Signs Vital Sign Reading Time Taken Comments Blood Pressure 163/57 06/26/2024 12:50 PM JAVA TECHNICAL ARCHITECT Pulse 63 06/26/2024 12:50 PM JAVA TECHNICAL ARCHITECT Temperature 36 ??C (96.8 ??F) 06/26/2024 12:50 PM JAVA TECHNICAL ARCHITECT Respiratory Rate 20 06/26/2024 12:50 PM JAVA TECHNICAL ARCHITECT Oxygen Saturation 93% 06/26/2024 12:50 PM JAVA TECHNICAL ARCHITECT Inhaled Oxygen Concentration - - Weight 105 kg (231 lb 7.7 oz) 06/26/2024 10:06 A M JAVA TECHNICAL ARCHITECT Height 162.6 cm (5' 4 ) 06/26/2024 10:06 AM JAVA TECHNICAL ARCHITECT Body Mass Index 39.73 06/26/2024 10:06 AM JAVA TECHNICAL ARCHITECT Plan of Treatment Not on file Medical Devices Implanted Type Area Ship'S Electronic Warfare Officer Device Identifier Shelf Expiration Date Model / Serial / Lot [employer] Frank Contour 6fr 26cm Large Inner Lumen Low Profile Bladder Gerard Taper Latex Free 180-223 - [id number] Implanted:Qty: 1 on 11/22/2022 by Davida León MD at [facility] Left: Urethra [employer] Frank 10/11/2024 180-223 / / [id number] Procedures Procedure Name Priority Date/Time Associated Diagnosis Comments POCT GLUCOSE DEVICE Routine 06/26/2024 1 1:47 AM JAVA TECHNICAL ARCHITECT TN AN ELECTIVE ENDOTRACHEAL AIRWAY Routine 06/26/2024 11:18 AM JAVA TECHNICAL ARCHITECT TN AN ELECTIVE SUPRAGLOTTIC AIRWAY Routine 06/26/2024 11:08 AM JAVA TECHNICAL ARCHITECT INSERTION SUPRAPUBIC TUBE 06/26/2024 10:57 AM JAVA TECHNICAL ARCHITECT Stricture of female urethra, unspecified stricture type Urinary retention POCT GLUCOSE DEVICE Routine 06/26/2024 1 0:49 AM JAVA TECHNICAL ARCHITECT ECG 12-LEAD STAT 06/26/2024 10:12 AM JAVA TECHNICAL ARCHITECT POTASSIUM, WHOLE BLOOD STAT 06/26/2024 10:11 AM JAVA TECHNICAL ARCHITECT POCT GLUCOSE DEVICE Routine 06/26/2024 1 0:01 AM JAVA TECHNICAL ARCHITECT EGFR Routine 11/10/2023 11:59 AM CDT Essential hypertension Stage 3 chronic kidney disease, unspecified whether stage 3a or 3b CKD (HCC) Chronic diastolic heart failure (HCC) LIPID PANEL Routine 05/06/2022 11:13 AM CDT Dyspnea on exertion 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) (HCC) Essential hypertension Venous stasis Dyslipidemia Hypertriglyceridemi a HEMOGLOBIN A1C Routine 10/01/2016 9:09 AM JAVA TECHNICAL ARCHITECT DIAGNOSTIC MAMMOGRAM BILATERAL W TERA Routine 03/07/2015 9:18 AM CDT OCCULT BLOOD, FECAL (FIT) Routine 02/19/2015 12:15 AM CDT from Last 3 Months or Most Recently Relevant to Health Maintenance Results * (ABNORMAL) POCT glucose (06/26/2024 11:47 AM JAVA TECHNICAL ARCHITECT) Glucose, POC 289(H) 70 - 199 mg/dL Blood 06/26/2024 11:4 7 AM JAVA TECHNICAL ARCHITECT 06/26/2024 11:47 AM JAVA TECHNICAL ARCHITECT us Davida Cerna MD LAB POCT ORDERABLES - DEVICE F inal Result Performing Organization Address City/State/[facility] Co de Phone Number [facility] ([place]) [address] [facility] Department [place] [address] * TN AN ELECTIVE ENDOTRACHEAL AIRWAY (06/26/2024 11:18 AM JAVA TECHNICAL ARCHITECT) Narrative Rich Nugent CRNA - 06/26/2024 11:18 AM JAVA TECHNICAL ARCHITECT Rich Nugent CRNA ? 06/26/2024 11:18 AM Airway Patient location: OR Urgency: elective Indications for airway management: anesthesia Difficult airway: no Staff: Placed by: VALARIE: Rich Nugent CRNA Emergent airway documentation: Risks [...] Lorenz MD ANESTHESIA ORDERABLES Final Result * TN AN ELECTIVE SUPRAGLOTTIC AIRWAY (06/26/2024 11:08 AM JAVA TECHNICAL ARCHITECT) Narrative Rich Nugent CRNA - 06/26/2024 11:08 AM JAVA TECHNICAL ARCHITECT Rich Nugent CRNA ? 06/26/2024 11:08 AM Airway Patient location: OR Urgency: elective Indications for airway management: anesthesia Difficult airway: no Staff: Placed by: VALARIE: Rich Nugent CRNA Emergent airway documentation: Risks and benefits discussed: yes Consent obtained: yes Consent given by: patient Airway prep: Preoxygenated: yes Patient position: sniffing MILS maintained throughout: yes Mask difficulty assessment: 0 - not attempted Sedation level during airway: GA Final airway details: Final airway type: supraglottic airway Final supraglottic airway: IGel SGA size: 4 Number of attempts: 1 Nuno Lorenz MD ANESTHESIA ORDERABLES Final Result * (ABNORMAL) POCT glucose (06/26/2024 10:49 AM JAVA TECHNICAL ARCHITECT) Glucose, POC 323(H) 70 - 199 mg/dL Blood 06/26/2024 10:4 9 AM JAVA TECHNICAL ARCHITECT 06/26/2024 10:49 AM JAVA TECHNICAL ARCHITECT Davida Cerna MD LAB POCT ORDERABLES - DEVICE F inal Result Performing Organization Address City/[facility] Co de Phone Number WILL [facility] ([address] Department of Laboratories [place] [phone] * ECG 12 lead (06/26/2024 10:12 AM JAVA TECHNICAL ARCHITECT) 06/26/2024 10:1 2 AM JAVA TECHNICAL ARCHITECT Narrative [facility] - 06/26/2024 1:09 PM JAVA TECHNICAL ARCHITECT Vent Rate: 65 bpm RR Interval: 914 msec TN Interval: 300 msec QRS Duration: 101 msec QT Interval: 410 msec QTC Interval: 422 msec P-R-T Norris: 54 - -9 - 89 degrees IMPRESSION: SINUS RHYTHM WITH SINUS ARRHYTHMIA WITH FIRST DEGREE AV BLOCK INFERIOR MYOCARDIAL INFARCTION , PROBABLY OLD [40+ ms Q WAVE AND/OR ST/T ABNORMALITY IN II/aVF] ANTEROSEPTAL MYOCARDIAL INFARCTION , OF INDETERMINATE AGE [40+ ms Q WAVE IN V1- V4] ABNORMAL ECG No change compared to prior EKG Electronically Signed By: Stephen Abreu MD [facility] us Rosalinda Salgado MD ECG ORDERABLES Final Re sult [employer] [facility] * (ABNORMAL) Potassium, whole blood (06/26/2024 10:11 AM JAVA TECHNICAL ARCHITECT) [facility] Potassium, bld 5.0(H) 3.3 - 4.9 mmol/L Comment: Interpretive Data This method is not able to assess for hemolysis, which may falsely increase potassium concentrations. If further testing is needed to evaluate this result, consider in-laboratory plasma potassium. Current Interpretive Data was last revised on 2022. Blood 06/26/2024 10:1 1 AM JAVA TECHNICAL ARCHITECT 06/26/2024 10:13 AM JAVA TECHNICAL ARCHITECT us Rosalinda Salgado MD LAB BLOOD ORDERABLES Fin al Result [facility] [address] [facility] [employer] [place], [place] [id number] * (ABNORMAL) POCT glucose (06/26/2024 10:01 AM JAVA TECHNICAL ARCHITECT) [facility] Glucose, POC 368(H) 70 - 199 mg/dL Blood 06/26/2024 10:0 1 AM JAVA TECHNICAL ARCHITECT 06/26/2024 10:01 AM JAVA TECHNICAL ARCHITECT Davida Cerna MD LAB POCT ORDERABLES - DEVICE F inal Result [facility] ([place] [address] [facility] [employer] [address] * (ABNORMAL) eGFR (11/10/2023 11:59 AM CDT) [facility] eGFR 52(L) >=60 mL/min/1. 73 m2 Comment: [...] LAB BLOOD ORDERABLES F inal Result WILL [address] [facility] [place] [address] * (ABNORMAL) Lipid panel (05/06/2022 [...] revised on 2018. Chol/HDL ratio 5 WILL Blood 05/06/2022 11:1 3 AM CDT 05/06/2022 11:20 AM CDT us Jacki Rudolph MD LAB BLOOD ORDERABLES F inal Result WILL [address] [facility] [place] [address] * (ABNORMAL) Hemoglobin A1c (10/01/2016 9:09 AM JAVA TECHNICAL ARCHITECT) Hemoglobin A1c % 9.8(H) 4.8 - 5.9 % 10/01/2016 9:53 AM JAVA TECHNICAL ARCHITECT [facility] HISTORICAL RESULTS Comment: [place] [employer] recommends that the goal of therapy should be an A1C hemoglobin of <7%. Reevaluate the treatment regimen in patients with an A1C >8%. 10/01/2016 9:09 AM JAVA TECHNICAL ARCHITECT 10/01/2016 9:36 AM JAVA TECHNICAL ARCHITECT Narrative [facility] HISTORICAL RESULTS - 10/01/2016 9:53 AM JAVA TECHNICAL ARCHITECT 12 HOURS FASTING Chris Ann DO LAB BLOOD ORDERABLES Fin al Result [facility]IST[facility]ICAL RESULTS * Diagnostic Mammogram Bilateral W [...] signed by: Rich Rodríguez md/:03/07/2015 10:10:05 ?? Poultry Dresser: Norma HARMON (Daysi)(Ирина), [facility] letter sent: Normal Exam ?? Reading location: [...] abdomen/pelvis. ?? COMPARISONS: ??02/18/2015 CT abdomen/pelvis - [facility], ??06/20/2013 mammogram and 12/02/2009 mammogram - [facility]. ?? BREAST TISSUE: There are scattered [...] copy. Current study was also evaluated with [employer] version 7.2. CLINICAL: Follow-up of left breast skin thickening seen on recent CT abdomen/pelvis. COMPARISONS: 02/18/2015 CT abdomen/pelvis - [facility], 06/20/2013 mammogram and 12/02/2009 mammogram - [facility]. BREAST TISSUE: There are scattered areas [...] Electronically signed by: Rich Rodríguez md/:03/07/2015 10:10:05 Poultry Dresser: Norma Aguilera)(Ирина), [facility] letter sent: Normal Exam Reading location: BI-RADS: 2 Benign [EOD] us Chris Ann DO IMG MAMMO PROCEDURES Fin al Result * Occult blood, fecal non neoplasm screening (02/19/2015 12:15 AM CDT) [facility] Signature Stool Occult Blood NEGATIVE NEGATIVE 02/19/2015 4:17 AM CDT [facility] HISTORICAL RESULTS 02/19/2015 12:1 5 AM CDT 02/19/2015 3:37 AM CDT Narrative [facility]IST[facility]ICAL RESULTS - 02/19/2015 4:17 AM CDT Collected By djt Chris Ann DO LAB BODY FLUIDS AND STOO LS ORDERABLES Final Result [facility] HISTORICAL RESULTS from Last 3 Months or Most Recently Relevant to Health Maintenance Insurance MEDICARE SOLUTIONS [employer] MEDICARE SOLUTIONS IDPA MEDICARE SOLUT[place] [address] MEDICARE SOLUTIONS Advance Directives For more information, please contact: [phone] * Full Code (Latest Code Status on File) Date Activated Date Inactivated Comments 11/19/2022 3:04 PM 11/24/2022 6:46 PM Care Teams Preparatory Technician Relationship Specialty Start Date End Date Nubia Lopez NP [address] [place] [address] [place] [address] PCP - General Family Medicine 06/20/24
--- OUTSIDE RECORDS SUMMARY | 2024-08-28 13:07 | XMS_ITS | Encounter Summary ---
Author Organization [facility] Facility Care Team Providers Care Supervisor Prep Name Role Phone Chris Ann DO Primary Care Provider + Adele Wharton MD Primary Care Provider + Nubia Lopez NP Primary Care Provider [phone] Encounter Details Date Type Department Care Team (Latest Contact Info) Description 09/06/2013 Orders Only MMG CLINCONV Provider, MD Angelique [address] [place] [address] Social History Tobacco Use Types Packs/Day Years Used Date Smoking Tobacco: Never Assessed Comments Unknown Sex and Gender Information Value Date Recorded Sex Assigned at Not on file Legal 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 Historical Provider CV CARDIAC SERVICES PROCE DURES Final Result * CARDIOLOGY REPORT (12/22/2016 12:00 AM CDT) Anatomical Region Laterality Modality Other Narrative 12/22/2016 12:00 AM CDT Ordered by an unspecified provider. us Historical Provider CV CARDIAC SERVICES PROCE JACEK Final Result documented in this encounter Visit Diagnoses Not on filedocumented in this encounter Care Teams Supervisor Prep Relationship Specialty Start Date End Date Chris Ann DO PCP - General Family Medicine 11/08/19 03/28/20 Adele Wharton MD [address] [place] [address] PCP - General 03/29/20 06/19/24 Nuiba Lopez NP [address] [place] [address] PCP - General Family Medicine 06/20/24 documented as of this encounter
--- OUTSIDE RECORDS SUMMARY | 2024-08-28 13:07 | XMS_ITS | Encounter Summary ---
Author Organization [facility] Facility Care Team Providers Care Computer Art Instructor Name Role Phone Chris Ann DO Primary Care Provider + Adele Wharton MD Primary Care Provider + Nubia Lopez NP Primary Care Provider [phone] Encounter Details Date Type Department Care Team (Latest Contact Info) Description 03/12/2015 Orders Only [facility] CLINCONV Provider, MD Angelique [address] [place] [address] Social History Tobacco Use Types Packs/Day Years Used Date Smoking Tobacco: Never Assessed Comments Unknown Sex and Gender Information Value Date Recorded Sex Assigned at Not on file Legal Sex Female 8:18 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 Historical Provider Final Res ult documented in this encounter Visit Diagnoses Not on filedocumented in this encounter Care Teams Computer Art Instructor Relationship Specialty Start Date End Date Chris Ann DO PCP - General Family Medicine 11/08/19 03/28/20 Adele Wharton MD [address] [place] [address] PCP - General 03/29/20 06/19/24 Nubia Lopez NP [address] [place] [address] PCP - General Family Medicine 06/20/24 documented as of this encounter
--- OUTSIDE RECORDS SUMMARY | 2024-08-28 13:07 | XMS_ITS | Encounter Summary ---
Author Organization [facility] Address [address] [place] [address]. [place] [address] [place] [address] Care Team Providers Care Regional Property Manager Name Role Phone Adele Wharton MD Primary Care Provider [phone] Kt Lizama MD Unavailable Alphonse Lewis DPM Unavailable [phone] Encounter Details Date Type Department Care Team (Late st Contact Info) Description 11/07/2020 Abstract [facility] [address] Cassie Clemons MA Social History Tobacco Use Types Packs/Day Years Used Date Smoking Tobacco: Former Cigarettes 0.5 4 1 979 - 1983 Smokeless Tobacco: Never Alcohol Use Standard Drinks/Week Comments Never 0 (1 standard drink = 0.6 oz pur e alcohol) AUDIT-C Answer Date Recorded Q1: How often do you have a drink containing alc ohol? Never 04/04/2020 Average Number of Drinks Not on file 020 Frequency of Binge Drinking Not on file 10/2019 Comments No Sex and Gender Information Value Date Recorded Sex Assigned at Not on file Legal Sex Female 5:03 PM CDT Gender Identity Not on file Sexual Orientation Not on file COVID-19 Exposure Response Date Recorded In the last month, have you been in contact with someone who was confirmed or suspected to have Coronavirus / COVID-19? No / Unsure 11/07/2020 11:31 AM CDT documented as of this encounter Plan of Treatment Not on file documented as of this encounter Procedures Procedure Name Priority Date/Time Associated Diagnosis Comments CBC (OUTSIDE LAB) Routine 10/08/2020 COMPREHENSIVE METABOLIC PANEL Routine 10/08/2020 LIPID PANEL Routine 10/08/2020 HEMOGLOBIN, GLYCOSYLATED Routine 10/08/2020 VITAMIN D, 25 OH Routine 10/08/2020 THYROID STIM HORMONE TSH Routine 10/07/2020 documented in this encounter Results * CBC (OUTSIDE LAB) (10/08/2020) WBC 6.4 HGB 11.7 HCT 36.1 PLT 225 10/08/2020 [facility] Abstract LAB-OUTSIDE/ABSTRACTED Final Result * HEMOGLOBIN, GLYCOSYLATED (10/08/2020) HGB A1C 10.6 % 10/08/2020 [facility] Abstract LABORATORY Final Result * LIPID PANEL (10/08/2020) CHOLESTEROL 159 HDL 39 TRIGLYCERIDES 146 LDL (CALCULATED) 91 10/08/2020 [facility] Abstract LABORATORY Final Result * COMPREHENSIVE METABOLIC PANEL (10/08/2020) SODIUM S/P/B 135 POTASSIUM S/P/B 4.8 CO2 33 CHLORIDE S/P/B 98 GLUCOSE 196 mg/dL CALCIUM S/P/B 9.6 BUN 27 CREATININE S/P/B 0.76 0.5 - 1.0 EGFR NON-AFR. AMER. >60 <=90 ALKALINE PHOSPHATASE S/P/B 64 ALT 10 AST 19 BILIRUBIN TOTAL S/P/B 0.60 ALBUMIN S/P/B 3.7 3.5 - 5.0 TOTAL PROTEIN S/P/B 6.2 GLOBULIN 2.5 10/08/2020 [facility] Abstract LABORATORY Final Result * VITAMIN D, 25 OH (10/08/2020) VITAMIN D 25 HYDROXY S/P/B 48.1 10/08/2020 [facility] Abstract LABORATORY Final Result * THYROID STIM HORMONE, TSH (10/07/2020) TSH 2.760 10/07/2020 [facility] Abstract LABORATORY Final Result documented in this encounter Visit Diagnoses Not on filedocumented in this encounter Care Teams Regional Property Manager Relationship Specialty Start Date End Date Adele Wharton MD [address] [place] [address] PCP - General FAMILY PRACTICE 03/05/20 [place] [address] [place] [address] CARDIOVASCULAR DISEASE 04/04/20 Alphonse Lewis, VIDAL [address] [place] [address], [address] [place] [address] Referring Physician PODIATRY/SURGERY 03/12/22 documented as of this encounter
--- OUTSIDE RECORDS SUMMARY | 2024-08-28 13:07 | XMS_ITS | Encounter Summary ---
Author Organization [facility] Facility Care Team Providers Care Charge Entry Specialist Name Role Phone Chris Ann DO Primary Care Provider + Adele Wharton MD Primary Care Provider + Nubia Lopez NP Primary Care Provider [phone] Encounter Details Date Type Department Care Team (Latest Contact Info) Description 08/06/2013 Orders Only [facility] CLINCONV Provider, MD Angelique [address] [place] [address] Social History Tobacco Use Types Packs/Day Years Used Date Smoking Tobacco: Never Assessed Comments Unknown Sex and Gender Information Value Date Recorded Sex Assigned at Not on file Legal Sex Female 8:18 PM ADMISSIONS ADVISOR Gender Identity Not on file Sexual Orientation [...] on filedocumented in this encounter Care Teams Charge Entry Specialist Relationship Specialty Start Date End Date [place], Chris Trell, DO PCP - General Family Medicine 11/08/19 03/28/20 Adele Wharton MD [address] [place] [address] PCP - General 03/29/20 06/19/24 Nubia Lopez NP [address] [place] [address] PCP - General Family Medicine 06/20/24 documented as of this encounter
--- OUTSIDE RECORDS SUMMARY | 2024-08-28 13:07 | XMS_ITS | Encounter Summary ---
Author Organization [facility] Facility Care Team Providers Care Improvement Manager Name Role Phone Chris Ann DO Primary Care Provider + Adele Wharton MD Primary Care Provider + Nubia Lopez NP Primary Care Provider [phone] Encounter Details Date Type Department Care Team (Latest Contact Info) Description 08/07/2013 Orders Only [facility] CLINCONV Provider, MD Angelique [address] [place] [address] Social History Tobacco Use Types Packs/Day Years Used Date Smoking Tobacco: Never Assessed Comments Unknown Sex and Gender Information Value Date Recorded Sex Assigned at Not on file Legal Sex Female 8:18 PM EMPLOYEE RELATIONS MANAGER Gender Identity Not on file Sexual Orientation [...] on filedocumented in this encounter Care Teams Improvement Manager Relationship Specialty Start Date End Date [place], Chris Trell, DO PCP - General Family Medicine 11/08/19 03/28/20 Adele Wharton MD [address] [place] [address] PCP - General 03/29/20 06/19/24 Nubia Lopez NP [address] [place] [address] PCP - General Family Medicine 06/20/24 documented as of this encounter
--- OUTSIDE RECORDS SUMMARY | 2024-08-28 13:07 | XMS_ITS | Clinical Summary ---
Author Organization [facility] Address [address] [place] [address]. [place] [address] [place] [address] Care Team Providers Care Oil And Gas Superintendent Name Role Phone Adele Wharton MD Primary Care Provider [phone] Kt Lizama MD Unavailable Alphonse Lewis DPM Unavailable [phone] Allergies Active Allergy Reactions Criticality Noted Date Comments Latex Rash,Itching Low 04/04/2020 Has to wear the gloves for a long time and then develops symptoms, Has irritation from elastic in underwear, lips tingle when she eats a banana Penicillins Hives 11/05/2013 Sulfa Antibiotics Itching 11/05/2013 Itching and burning Medications atorvastatin 40 MG tablet Take 40 mg by mouth daily. 12/06/19 20 Active lisinopril 40 MG tablet Take 40 mg by mouth daily. 01/11/20 20 Active aspirin EC (ASPIRIN EC) 81 MG tablet Take 81 mg by mouth nightly. Active clopidogrel 75 MG tabletIndications :says she has been taking this in the morning Take 75 mg by mouth daily. Indications: says she has been taking this in the morning Active diazePAM 10 MG tablet Take 10 mg by mouth nightly as needed. Active LANTUS SOLOSTAR 100 UNIT/ML injection (PEN) Inject into the skin 2 (two) times a day. Taking 40 units every morning and 70 units every evening 02/27/20 20 Active vitamin D2, ergocalciferol, 15619 UNITS capsule Take 50,000 Units by mouth every 7 days. 10/03/19 20 Active NOVOLOG FLEXPEN 100 UNIT/ML injection (PEN)Indications: sliding scale tid ac -takes between 2 and 6 units see administration instructions. Indications: sliding scale tid ac -takes between 2 and 6 units 10/18/19 20 Active furosemide Tab 10 mg (20 mg split tab)Indications:w as taking this and stopped it on her own but plans to resume due recent weight gain of 6 pounds Take 10 mg by mouth daily. Indications: was taking this and stopped it on her own but plans to resume due recent weight gain of 6 pounds Active OXYGENIndications :uses at hs and can use during the day as needed 2 L/min by Nasal route continuous. Indications: uses at hs and can use during the day as needed Active calcium-magnesium -zinc 333-133-5 MG Tab Take 1 tablet by mouth daily. Active vitamin B-12 (CYANOCOBALAMIN) 1000 mcg tablet Take 1,000 mcg by mouth daily. Active HYDROcodone-aceta minophen 5-325 MG tabletIndications :Acute Pain < 7 Day Supply Take 1 tablet by mouth every 6 (six) hours as needed for Pain. Indications: Acute Pain < 7 Day Supply 20 tablet 04/11/20 20 Active ibuprofen 800 MG tablet Take 1 tablet (800 mg total) by mouth every 8 (eight) hours as needed for Pain. 30 tablet 04/11/20 20 Active Additional Information Patient not taking.Reported on 11/07/2020 COMPRESSION STOCKINGS, DME,Indications:C hronic venous insufficiency Apply 1 Package topically daily. 20-30 mmHg compression open toe knee highs 2 Package 1 11/08/19 21 Active ANORO ELLIPTA 62.5-25 MCG/INH inhaler INHALE 1 PUFF BY MOUTH EVERY DAY DIRECTED 09/20/19 21 Active MAGNESIUM-ZINC OR Take 2 tablets by mouth daily. Active amLODIPine 2.5 MG tablet Take 1 tablet (2.5 mg total) by mouth daily. PLEASE CALL TO MAKE AN APPOINTMENT FOR AN OFFICE VISIT AND FOR FUTURE REFILLS. 10 tablet 01/23/20 21 Active gentamicin (GARAMYCIN) 0.1 % cream Apply topically daily. 30 g 1 07/20/20 22 Active gentamicin (GARAMYCIN) 0.1 % cream Apply topically daily. 30 g 2 11/16/19 23 Active Active Problems Problem Noted Date Diagnosed Date Chronic venous insufficiency 11/07/2020 Essential hypertension 11/07/2020 History of DVT (deep vein thrombosis) 11/07/2020 Family History Medical History Relation Comments Diabetes Brother Heart Attack Brother Cancer Father metastatic Heart Disease Maternal Grandfather Cancer Mother brain cancer Heart Disease Mother Hypertension Mother Asthma Sister Relation Status Comments Brother (Age 53) Daughter Alive Father (Age 82) of metast atic cancer Maternal Grandfather Mother (Age 80) of brain cancer Sister Social History Tobacco Use Types Packs/Day Years Used Date Smoking Tobacco: Former Cigarettes 0.5 4 1 9 1982 Smokeless Tobacco: Never Alcohol Use Standard Drinks/Week [...] Sign Reading Time Taken Comments Blood Pressure 120/70 11/07/2020 2:01 PM CDT ret aken by Pulse 71 11/07/2020 11:49 AM CDT Temperature 36.4 ??C (97.5 ??F) 04/11/2020 1:45 PM CD T Respiratory Rate 16 04/11/2020 1:45 PM CDT Oxygen Saturation 91% 11/07/2020 11: 49 AM CDT Inhaled Oxygen Concentration - - Weight 114.3 kg (252 lb) 11/07/2020 11: 49 AM CDT Height 165.1 cm (5' 5 ) 11/07/2020 11:4 9 AM CDT Body Mass Index 41.93 11/07/2020 11:49 AM CDT Plan of Treatment Health Maintenance Due Date Last Done Comments Colorectal Cancer Screening Colonoscopy (10 Years) 1949 Hepatitis C 10/11/1967 Mammogram Screening 1989 Zoster Vaccines (1 of 2) 10/11/1999 Annual Medicare Wellness Visit 2014 Dexa Scan (General) 2014 Pneumococcal Vaccine: 65+ Years (2 of 2 - PPSV23 or PCV20) 12/13/2018 12/13/2017 COVID-19 Vaccine ( - 2023- season) 2024 Influenza Adult (#1) 2024 05/31/2019, 05/01/2019, 05/02/2018, Additional history exists RSV Immunization or 60+ Years (1 - 1-dose 75+ series) 2024 DTaP, Tdap and Td Vaccines (2 - Td or Tdap) 10/31/2028 10/31/2018 Meningococcal B Vaccine Aged Out No l onger eligible based on patient's age to complete this topic Meningococcal Vaccine Aged Out No rianna fortino eligible based on patient's age to complete this topic RSV Immunizations Under 20 Months Aged Out No longer eligible based on patient's age to complete this topic Insurance MEDICAID UHC Advance Directives Documents on File Type Date Recorded Patient Player Services Representative Expl anation Advance Directives and Living Will 04/03/2020 7:35 AM 01/15/16 HEALTH CARE POA Care Teams Oil And Gas Superintendent Relationship Specialty Start Date End Date Adele Wharton MD [address] [place] [address] PCP - General FAMILY PRACTICE 03/05/20 [place] [address] [facility] [address] [address] CARDIOVASCULAR DISEASE 04/04/20 Alphonse Lewis DPM [facility], [address] [place] [address] Referring Physician PODIATRY/SURGERY 03/12/22
--- OUTSIDE RECORDS SUMMARY | 2024-08-28 13:08 | XMS_ITS | Encounter Summary ---
Author Organization [facility] Facility Care Team Providers Care Inside Plant Supervisor Name Role Phone Chris Ann DO Primary Care Provider + Adele Wharton MD Primary Care Provider + Nubia Lopez NP Primary Care Provider [phone] Encounter Details Date Type Department Care Team (Latest Contact Info) Description 09/27/2017 Orders Only [facility] CLINCONV Provider, MD Angelique [address] [place] [address] Social History Tobacco Use Types Packs/Day Years Used Date Smoking Tobacco: Never Assessed Comments Unknown Sex and Gender Information Value Date Recorded Sex Assigned at Not on file Legal Sex Female 8:18 PM CULINARY ASSISTANT Gender Identity Not on file Sexual Orientation Not on file documented as of this encounter Plan of Treatment Not on file documented as of this encounter Procedures Procedure Name Priority Date/Time Associated Diagnosis Comments CARDIOLOGY REPORT 09/27/2017 12: 00 AM CULINARY ASSISTANT documented in this encounter Results * CARDIOLOGY REPORT (09/27/2017 12:00 AM CULINARY ASSISTANT) Anatomical Region Laterality Modality Other Narrative 09/27/2017 12:00 AM CULINARY ASSISTANT Ordered by an unspecified provider. us Historical Provider [facility] READ Final Result documented in this encounter Visit Diagnoses Not on filedocumented in this encounter Care Teams Inside Plant Supervisor Relationship Specialty Start Date End Date Chris Ann DO PCP - General Family Medicine 11/08/19 03/28/20 Adele Wharton MD [address] [place] [address] PCP - General 03/29/20 06/19/24 Nubia Lopez NP [address] [place] [address] PCP - General Family Medicine 06/20/24 documented as of this encounter
--- OUTSIDE RECORDS SUMMARY | 2024-08-28 13:08 | XMS_ITS | Encounter Summary ---
Author Organization [facility] Facility Care Team Providers Care Physical Science Technician Name Role Phone Chris Ann DO Primary Care Provider + Adele Wharton MD Primary Care Provider + Nubia Lopez NP Primary Care Provider [phone] Encounter Details Date Type Department Care Team (Latest Contact Info) Description 03/19/2016 Orders Only [facility]G CLINCONV Provider, MD Angelique [address] [place] [address] Social History Tobacco Use Types Packs/Day Years Used Date Smoking Tobacco: Never Assessed Comments Unknown Sex and Gender Information Value Date Recorded Sex Assigned at Not on file Legal Sex Female 8:18 PM SHIP SURVEYOR Gender Identity Not on file Sexual Orientation Not on file documented as of this encounter Plan of Treatment Not on file documented as of this encounter Procedures Procedure Name Priority Date/Time Associated Diagnosis Comments SCAN - LABS 03/19/2016 12:00 AM CDT documented in this encounter Results * SCAN - LABS (03/19/2016 12:00 AM CDT) Narrative 03/19/2016 12:00 AM CDT Ordered by an unspecified provider. Historical Provider Final Res ult documented in this encounter Visit Diagnoses Not on filedocumented in this encounter Care Teams Physical Science Technician Relationship Specialty Start Date End Date Chris Ann DO PCP - General Family Medicine 11/08/19 03/28/20 Adele Wharton MD [address] [place] [address] PCP - General 03/29/20 06/19/24 Nubia Lopez NP [address] [place] [address] PCP - General Family Medicine 06/20/24 documented as of this encounter
--- OUTSIDE RECORDS SUMMARY | 2024-08-28 13:08 | XMS_ITS | Data Portability ---
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 Lab CBC w/ auto diff 2023 024 [facility] Not available 20:27:19 BMP, serum or plasma 2023 024 [facility] Not available 20:37:16 lipase, serum or plasma 2023 024 [facility] Not available 20:37:21 amylase, serum or plasma 2023 024 [facility] Not available 20:37:26 urinalysis complete, reflex culture [facility] [address] [place], [address], 4 20:56:20 glycohemogl obin, total, blood 2023 024 [email or web address] [address] [facility] (Lab), [address] [place], [address], 4 08:45:30 CMP, serum or plasma [address] (Lab), [address] [place], [address], 4 08:45:30 TSH, serum or plasma 2023 024 [facility] (Lab), [address] [place], [address], 4 23:14:01 lipid panel, serum [address] (Lab), [address] [place], [address], 4 08:45:30 hepatic function panel, serum [address] (Lab), [address] [place], [address], 4 08:45:30 vitamin D, 25-hydroxy, total, serum [address] (Lab), [address] [place], [address], 4 08:45:30 CBC w/ auto diff [address] (Lab), [address] [place], [address], 4 08:45:29 Referral physical therapist referral 2023 024 [facility], [address] [place], [address], 4 17:07:33 neurologist referral - Please call patient to schedule an appointment . Thank you. 2023 024 [email or web address] [facility], [facility] Daryl Nuno, [place], [address], 08:47:26 Procedures None recorded. Surgeries None recorded. Imaging CT, abdomen + pelvis, w/ contrast - *Please call pt to schedule* Pt contacted and states she does not have [facility], she has [facility] and [facility] Medicaid (white paper). Please schedule pt 2023 024 [facility] (Radiology), [address] [place], [address], 4 10:18:28 MAMMO, screening, digital, bilateral - *Please call pt to schedule* 2023 [email or web address] [place] [address] (Radiology), [address] [place], [address], 4 09:08:34 Medication Orders hydrocodone 5 mg-acetamin ophen 325 mg tablet 2023 024 [facility][id number], [address], [place], [place], [id number], 4 12:21:43 famotidine 20 mg tablet 2023 024 [email or web address] [address] [facility] #[id number], [address], [place], [place], [id number], 4 11:34:29 hydrocodone 5 mg-acetamin ophen 325 mg tablet 2023 024 [facility] #[id number], [address], [place], [place], [id number], 4 12:28:26 doxycycline hyclate 100 mg tablet 2023 024 [facility] #[id number], [address], [place], [place], [id number], 11:32:47 Patient TargetsNo targets recorded. Patient Instructions Encounter Date Encounter Id Patient Instructions Last Modified By Organization Details Last Modified Time 03/26/2024 [id number] dementia rating scale-2* [facility] Not available 03/26/2024 12:47:52 depression screening* [facility] Not available 03/26/2024 12:48:03 alcohol misuse* [facility] Not available 03/26/2024 12:48:15 multi-dimensiona l health assessment questionnaire* [facility] Not available 03/26/2024 12:48:10 Personalized a lt Plan and Screening Recommendations Advance Directives - Do you have one? Advance Directives - Do we have your advance directive on file in your health record? Primary Prevention/Interven tion (prevents or decreases the chance of common diseases from occurring) Smoking Risk: Non Smoker Alcohol Misuse Screening: Negative Weight: Appropriate Overwei ght continue your current weight loss efforts try to lose 5% of your body weight try to lose 10% of your body weight Physical activity: Nutrition: Good Average Fall Risk (screened today): Low Intermediate Refer to attached handout Preventing Falls: After your Visit Recommend regular use of cane or walker Vaccines Pneumococcal: Ordered Recommended today Recommended today, but you have declined No further needed Influenza: Chronic Disease Risks Stroke: Low Risk Intermediate Risk I have no recommendations Act deja diagnosis, Continue current treatment plan Heart Attack: Low risk Intermediate Risk I have no recommendations Act deja diagnosis, Continue current treatment plan Clogging of the Arteries: Low risk Intermediate Risk I have no recommendations Act deja diagnosis, Continue current treatment plan Diabetes: Low Risk Intermediate Risk Secondary Prevention/Interven tion (detects treatable diseases before they may cause symptoms, disability, or ) Breast Cancer Screening with mammogram: Your next mammogram: Ordered Recommended today Cervical/Uterine/Ov saadia Cancer Screening: Your next PAP/pelvic in: 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 ended today Osteoporosis Screening: Your next DEXA in: Ordered Recomme nded today Date Screening Last Performed: Colon Cancer Screening: Colonoscopy In: Ordered Recomme nded Date Screening Last Performed: Eye Disease Screening: Ordered Recommended today Dementia Risk: Low I have no recommendations Depression Screening: Negative [email or web address] Not available 03/23/2024 11:23:31 Reason for Referral Physical Therapist Referral for Bilateral shoulder joint pain Referring Physician: Rodolfo Wharton, [facility], Encounter Date: 12/06/2023 Neurologist Referral for Pankaj ropathy Please call patient to schedule an appointment. Thank you. Referring Physician: Nubia Lopez, [facility], Encounter Date: 03/26/2024 Results Created Date Observation Date Name Description Value Unit Range Abnormal Flag Note LastModifiedBy Organization Detail LastModifiedTime 06/29/2006/29/2023 CBC/C OMPLE TE BLD COUNT W/DIF F white blood cells 8.2 x10'3 /uL 4.2-10 .8 Not Available [facility] (Lab) [address] [place], [address], 06/29/2023 19:45:54 06/29/20 23 06/29/2023 CBC/C OMPLE TE BLD COUNT W/DIF F red blood cells 3.84 x10'6 /uL 3.80-5 .20 Not Available [facility] (Lab) [address] [place], [address], 06/29/2023 19:45:54 06/29/20 23 06/29/2023 CBC/C OMPLE TE BLD COUNT W/DIF F hemoglobin 11.6 g/dL 12.0-1 5.6 low Not Available [facility] (Lab) [address] [place], [address], 06/29/2023 19:45:54 06/29/20 23 06/29/2023 CBC/C OMPLE TE BLD COUNT W/DIF F hematocrit 35.9 % 35.7-4 5.7 Not Available [facility] (Lab) [address] [place], [address], 06/29/2023 19:45:54 06/29/20 23 06/29/2023 CBC/C OMPLE TE BLD COUNT W/DIF F mean red cell volume 93.5 fL 82.0-9 9.0 Not Available [facility] (Lab) [address] [place], [address], 06/29/2023 19:45:54 06/29/20 23 06/29/2023 CBC/C OMPLE TE BLD COUNT W/DIF F mean red cell hemoglobin 30.2 pg 27.0-3 3.0 Not Available [facility] (Lab) [address] [place], [address], 06/29/2023 19:45:54 06/29/20 23 06/29/2023 CBC/C OMPLE TE BLD COUNT W/DIF F mean RBC HGB concentratio n 32.3 g/dL 31.0-3 6.0 Not Available [facility] (Lab) [address] [place], [address], 06/29/2023 19:45:54 06/29/20 23 06/29/2023 CBC/C OMPLE TE BLD COUNT W/DIF F red cell distribution width 13.4 % 11.8-1 5.5 Not Available [facility] (Lab) [address] [place], [address], 06/29/2023 19:45:54 06/29/20 23 06/29/2023 CBC/C OMPLE TE BLD COUNT W/DIF F platelets 244 x10'3 /uL 150-40 0 Not Available [facility] (Lab) [address] [place], [address], 06/29/2023 19:45:54 06/29/20 23 06/29/2023 CBC/C OMPLE TE BLD COUNT W/DIF F mean platelet volume 11.8 fL 9.0-12 .4 Not Available [facility] (Lab) [address] [place], [address], 06/29/2023 19:45:54 06/29/20 23 06/29/2023 CBC/C OMPLE TE BLD COUNT W/DIF F neutrophils 63.0 % 39.0-7 2.0 Not Available [facility] (Lab) [address] [place], [address], 06/29/2023 19:45:54 06/29/20 23 06/29/2023 CBC/C OMPLE TE BLD COUNT W/DIF F lymphocytes 24.2 % 16.0-4 7.0 Not Available [facility] (Lab) [address] [place], [address], 06/29/2023 19:45:54 06/29/2006/29/2023 CBC/C OMPLE TE BLD COUNT W/DIF F monocytes 7.4 % 5.0-12 .0 Not Available [facility] (Lab) [address] [place], [address], 06/29/2023 19:45:54 06/29/20 23 06/29/2023 CBC/C OMPLE TE BLD COUNT W/DIF F eosinophils 4.5 % 1.0-7. 0 Not Available [facility] (Lab) [address] [place], [address], 06/29/2023 19:45:54 06/29/2006/29/2023 CBC/C OMPLE TE BLD COUNT W/DIF F basophils 0.7 % 0.0-2. 0 Not Available [facility] (Lab) [address] [place], [address], 06/29/2023 19:45:54 06/29/20 23 06/29/2023 CBC/C OMPLE TE BLD COUNT W/DIF F immature granulocytes 0.2 % 0.00-0 .50 Not Available [facility] (Lab) [address] [place], [address], 06/29/2023 19:45:54 06/29/20 23 06/29/2023 CBC/C OMPLE TE BLD COUNT W/DIF F neutrophils, absolute count 5.16 x10'3 /uL 1.5-8. 0 Not Available [facility] (Lab) [address] [place], [address], 06/29/2023 19:45:54 06/29/20 23 06/29/2023 CBC/C OMPLE TE BLD COUNT W/DIF F lymphocytes, absolute count 1.99 x10'3 /uL 1.07-3 .43 Not Available [facility] (Lab) [address] [place], [address], 06/29/2023 19:45:54 06/29/2006/29/2023 CBC/C OMPLE TE BLD COUNT W/DIF F monocytes, absolute count 0.61 x10'3 /uL 0.29-0 .99 Not Available [facility] (Lab) [address] [place], [address], 06/29/2023 19:45:54 06/29/20 23 06/29/2023 CBC/C OMPLE TE BLD COUNT W/DIF F eosinophils, absolute count 0.37 x10'3 /uL 0.02-0 .53 Not Available [facility] (Lab) [address] [place], [address], 06/29/2023 19:45:54 06/29/20 23 06/29/2023 CBC/C OMPLE TE BLD COUNT W/DIF F basophils, absolute count 0.06 x10'3 /uL 0.01-0 .08 Not Available [facility] (Lab) [address] [place], [address], 06/29/2023 19:45:54 06/29/20 23 06/29/2023 CBC/C OMPLE TE BLD COUNT W/DIF F immature granulocytes ,absolute 0.02 x10'3 /uL 0.00-0 .05 Not Available [facility] (Lab) [address] [place], [address], 06/29/2023 19:45:54 06/29/20 23 06/29/2023 CBC/C OMPLE TE BLD COUNT W/DIF F nucleated red blood cells 0.0 % -[address] [facility] (Lab) [address] [place], [address], 06/29/2023 19:45:54 06/29/20 23 06/29/2023 CBC/C OMPLE TE BLD COUNT W/DIF F NRBC# 0.00 x10'3 /uL Not Available [facility] (Lab) [address] [place], [address], 06/29/2023 19:45:54 06/29/20 23 06/29/2023 IRON/ TIBC PANEL total iron binding capacity 336 mcg/d L 265-47 5 Not Available [facility] (Lab) [address] [place], [address], 06/29/2023 20:53:02 06/29/2006/29/2023 IRON/ TIBC PANEL % transferrin saturation 19 % 20-55 low Not Available [facility] (Lab) [address] [place], [address], 06/29/2023 20:53:02 06/29/20 23 06/29/2023 IRON/ TIBC PANEL unsaturated iron bind capacity 273 mcg/d L 126-38 2 Not Available [facility] (Lab) [address] [place], [address], 06/29/2023 20:53:02 06/29/20 23 06/29/2023 IRON/ TIBC PANEL iron 63 mcg/d L 42-175 Not Available [facility] (Lab) [address] [place], [address], 06/29/2023 20:53:02 06/29/20 23 06/29/2023 VITAM IN B12 (MEGHA KWAN ) vb12 733 pg/mL 239-93 1 Not Available [facility] (Lab) [address] [place], [address], 06/29/2023 21:24:38 06/29/20 23 06/29/2023 FOLAT E, SERUM /PLAS MA folate 9.33 NG/mL 2.76-2 0.0 Not Available [facility] (Lab) [address] [place], [address], 06/29/2023 21:24:44 06/29/20 23 06/29/2023 CHUCHO TIN ferritin 22 NG/mL 11.1-2 64 Not Available [facility] (Lab) [address] [place], [address], 06/29/2023 21:29:03 12/06/19 24 12/06/2023 CBC/C OMPLE TE BLD COUNT W/DIF F white blood cells 6.3 x10'3 /uL 4.2-10 .8 Not Available [facility] (Lab) [address] [place], [address], 12/06/2023 20:27:18 12/06/19 24 12/06/2023 CBC/C OMPLE TE BLD COUNT W/DIF F red blood cells 3.92 x10'6 /uL 3.80-5 .20 Not Available [facility] (Lab) [address] [place], [address], 12/06/2023 20:27:18 12/06/19 24 12/06/2023 CBC/C OMPLE TE BLD COUNT W/DIF F hemoglobin 12.0 g/dL 12.0-1 5.6 Not Available [facility] (Lab) [address] [place], [address], 12/06/2023 20:27:18 12/06/19 24 12/06/2023 CBC/C OMPLE TE BLD COUNT W/DIF F hematocrit 36.6 % 35.7-4 5.7 Not Available [facility] (Lab) [address] [place], [address], 12/06/2023 20:27:18 12/06/19 24 12/06/2023 CBC/C OMPLE TE BLD COUNT W/DIF F mean red cell volume 93.4 fL 82.0-9 9.0 Not Available [facility] (Lab) [address] [place], [address], 12/06/2023 20:27:18 12/06/19 24 12/06/2023 CBC/C OMPLE TE BLD COUNT W/DIF F mean red cell hemoglobin 30.6 pg 27.0-3 3.0 Not Available [facility] (Lab) [address] [place], [address], 12/06/2023 20:27:18 12/06/19 24 12/06/2023 CBC/C OMPLE TE BLD COUNT W/DIF F mean RBC HGB concentratio n 32.8 g/dL 31.0-3 6.0 Not Available [facility] (Lab) [address] [place], [address], 12/06/2023 20:27:18 12/06/19 24 12/06/2023 CBC/C OMPLE TE BLD COUNT W/DIF F red cell distribution width 13.1 % 11.8-1 5.5 Not Available [facility] (Lab) [address] [place], [address], 12/06/2023 20:27:18 12/06/19 24 12/06/2023 CBC/C OMPLE TE BLD COUNT W/DIF F platelets 242 x10'3 /uL 150-40 0 Not Available [facility] (Lab) [address] [place], [address], 12/06/2023 20:27:18 12/06/19 24 12/06/2023 CBC/C OMPLE TE BLD COUNT W/DIF F mean platelet volume 11.4 fL 9.0-12 .4 Not Available [facility] (Lab) [address] [place], [address], 12/06/2023 20:27:18 12/06/19 24 12/06/2023 CBC/C OMPLE TE BLD COUNT W/DIF F neutrophils 59.3 % 39.0-7 2.0 Not Available [facility] (Lab) [address] [place], [address], 12/06/2023 20:27:18 12/06/19 24 12/06/2023 CBC/C OMPLE TE BLD COUNT W/DIF F lymphocytes 26.3 % 16.0-4 7.0 Not Available [facility] (Lab) [address] [place], [address], 12/06/2023 20:27:18 12/06/19 24 12/06/2023 CBC/C OMPLE TE BLD COUNT W/DIF F monocytes 9.0 % 5.0-12 .0 Not Available [facility] (Lab) [address] [place], [address], 12/06/2023 20:27:18 12/06/19 24 12/06/2023 CBC/C OMPLE TE BLD COUNT W/DIF F eosinophils 4.3 % 1.0-7. 0 Not Available [facility] (Lab) [address] [place], [address], 12/06/2023 20:27:18 12/06/19 24 12/06/2023 CBC/C OMPLE TE BLD COUNT W/DIF F basophils 0.8 % 0.0-2. 0 Not Available [facility] (Lab) [address] [place], [address], 12/06/2023 20:27:18 12/06/19 24 12/06/2023 CBC/C OMPLE TE BLD COUNT W/DIF F immature granulocytes 0.3 % 0.00-0 .50 Not Available [facility] (Lab) [address] [place], [address], 12/06/2023 20:27:18 12/06/19 24 12/06/2023 CBC/C OMPLE TE BLD COUNT W/DIF F neutrophils, absolute count 3.74 x10'3 /uL 1.5-8. 0 Not Available [facility] (Lab[facility] [address] [facility] [place], [address], 12/06/2023 20:27:18 12/06/19 24 12/06/2023 CBC/C OMPLE TE BLD COUNT W/DIF F lymphocytes, absolute count 1.66 x10'3 /uL 1.07-3 .43 Not Available [facility] (Lab) [address] [facility] [place], [address], 12/06/2023 20:27:18 12/06/19 24 12/06/2023 CBC/C OMPLE TE BLD COUNT W/DIF F monocytes, absolute count 0.57 x10'3 /uL 0.29-0 .99 Not Available [facility] (Lab) [address] [place], [address], 12/06/2023 20:27:18 12/06/19 24 12/06/2023 CBC/C OMPLE TE BLD COUNT W/DIF F eosinophils, absolute count 0.27 x10'3 /uL 0.02-0 .53 Not Available [facility] (Lab) [address] [place], [address], 12/06/2023 20:27:18 12/06/19 24 12/06/2023 CBC/C OMPLE TE BLD COUNT W/DIF F basophils, absolute count 0.05 x10'3 /uL 0.01-0 .08 Not Available [facility] (Lab) [address] [place], [address], 12/06/2023 20:27:18 12/06/19 24 12/06/2023 CBC/C OMPLE TE BLD COUNT W/DIF F immature granulocytes ,absolute 0.02 x10'3 /uL 0.00-0 .05 Not Available [facility] (Lab) [address] [place], [address], 12/06/2023 20:27:18 12/06/19 24 12/06/2023 CBC/C OMPLE TE BLD COUNT W/DIF F nucleated red blood cells 0.0 % -[address] [facility] (Lab) [address] [place], [address], 12/06/2023 20:27:18 12/06/19 24 12/06/2023 CBC/C OMPLE TE BLD COUNT W/DIF F NRBC# 0.00 x10'3 /uL Not Available [facility] (Lab) [address] [place], [address], 12/06/2023 20:27:18 12/06/19 24 12/06/2023 URINA LYSIS COMPL ETE/I RIS W/RFX color YELLOW Not Available [facility] (Lab) [address] [place], [address], 12/06/2023 20:30:26 12/06/19 24 12/06/2023 URINA LYSIS COMPL ETE/I RIS W/RFX appear EXTRA TURBID abnormal Not Available [facility] (Lab) [address] [place], [address], 12/06/2023 20:30:26 12/06/19 24 12/06/2023 URINA LYSIS COMPL ETE/I RIS W/RFX specific gravity 1.019 1.001- 1.030 Not Available [facility] (Lab) [address] [place], [address], 12/06/2023 20:30:26 12/06/19 24 12/06/2023 URINA LYSIS COMPL ETE/I RIS W/RFX pH 6.5 pH_un its 5.0-9. 0 Not Available [facility] (Lab) [address] [place], [address], 12/06/2023 20:30:26 12/06/19 24 12/06/2023 URINA LYSIS COMPL ETE/I RIS W/RFX leukocytes >/=500 lamonte/u L negati ve- abnormal Not Available [facility] (Lab) [address] [place], [address], 12/06/2023 20:30:26 12/06/19 24 12/06/2023 URINA LYSIS COMPL ETE/I RIS W/RFX nitrite 2+ negati ve- abnormal Not Available [facility] (Lab) [address] [place], [address], 12/06/2023 20:30:26 12/06/19 24 12/06/2023 URINA LYSIS COMPL ETE/I RIS W/RFX protein 100 mg/dL negati ve- abnormal Not Available [facility] (Lab) [address] [place], [address], 12/06/2023 20:30:26 12/06/19 24 12/06/2023 URINA LYSIS COMPL ETE/I RIS W/RFX glucose NORMAL mg/dL normal - Not Available [facility] (Lab) [address] [place], [address], 12/06/2023 20:30:26 12/06/19 24 12/06/2023 URINA LYSIS COMPL ETE/I RIS W/RFX ketones NEGATI VE mg/dL negati ve- Not Available [facility] (Lab) [address] [place], [address], 12/06/2023 20:30:26 12/06/19 24 12/06/2023 URINA LYSIS COMPL ETE/I RIS W/RFX urobilinogen NORMAL mg/dL normal - Not Available [facility] (Lab) [address] [place], [address], 12/06/2023 20:30:26 12/06/19 24 12/06/2023 URINA LYSIS COMPL ETE/I RIS W/RFX bilirubin NEGATI VE mg/dL negati ve- Not Available [facility] (Lab) [address] [place], [address], 12/06/2023 20:30:26 12/06/19 24 12/06/2023 URINA LYSIS COMPL ETE/I RIS W/RFX blood 0.06 mg/dL negati ve- abnormal Not Available [facility] (Lab) [address] [place], [address], 12/06/2023 20:30:26 12/06/19 24 12/06/2023 BASIC METAB OLIC PANEL sodium 138 mmol/ L 137-14 5 Not Available [facility] (Lab) [address] [place], [address], 12/06/2023 20:37:16 12/06/19 24 12/06/2023 BASIC METAB OLIC PANEL potassium 4.8 mmol/ L 3.5-5. 1 Not Available [facility] (Lab) [address] [place], [address], 12/06/2023 20:37:16 12/06/19 24 12/06/2023 BASIC METAB OLIC PANEL chloride 102 mmol/ L 98-107 Not Available [facility] (Lab) [address] [place], [address], 12/06/2023 20:37:16 12/06/19 24 12/06/2023 BASIC METAB OLIC PANEL carbon dioxide 29 mmol/ L 22-30 Not Available [facility] (Lab) [address] [place], [address], 12/06/2023 20:37:16 12/06/19 24 12/06/2023 BASIC METAB OLIC PANEL anion gap 11.8 mmol/ L 14-22 low Not Available [facility] (Lab) [address] [place], [address], 12/06/2023 20:37:16 12/06/19 24 12/06/2023 BASIC METAB OLIC PANEL glucose 119 mg/dL 70-99 high Not Available [facility] (Lab) [address] [place], [address], 12/06/2023 20:37:16 12/06/19 24 12/06/2023 BASIC METAB OLIC PANEL BUN 31 mg/dL 8-19 high Not Available [facility] (Lab) [address] [place], [address], 12/06/2023 20:37:16 12/06/19 24 12/06/2023 BASIC METAB OLIC PANEL creatinine 1.15 mg/dL 0.66-1 .25 Not Available [facility] (Lab) [address] [place], [address], 12/06/2023 20:37:16 12/06/19 24 12/06/2023 BASIC METAB OLIC PANEL GFR 46 Refer ence Range : [place] ge GFR Healt hy Adult : >60 mL/mi n/1.7 3 m2 Chron ic Kidne y Disea se: 15-60 mL/mi n/1.7 3 m2 Kidne y Failu re: <15/m L/min /1.73 m2 www.n iddk. nih.g ov The MDRD study equat ion has not been valid ated in child álvaro <18 years of age; pregn ant women ; the elder ly >85 years of age; or in some racia l or ethni c subgr oups, such as Hispa nics. Outsi de the valid ated marvin eters , estim ated GFR is less accur ate, requi ring clini noelle judgm ent on a case- by-ca se basis . Clini noelle inter preta tion for other races and ages must be made by the clini margarette. The MDRD study equat ion has not been valid ated for the evalu ation of serum creat inine relat ed to nutri saumya l statu s or medic ation usage . For perso ns <18 years of age, a pedia tric GFR calcu lator is avail able on the NKF websi te: https ://ww w.kid julita.o rg/pr ofess ional s/kdo qi/gf r_cal culat or Not Available [facility] (Lab) [address] [place], [address], 12/06/2023 20:37:16 12/06/19 24 12/06/2023 BASIC METAB OLIC PANEL calcium 9.4 mg/dL 8.4-10 .2 Not Available [facility] (Lab) [address] [place], [address], 12/06/2023 20:37:16 12/06/19 24 12/06/2023 LIPAS E SERUM lipase 224 U/L 23-300 Not Available [facility] (Lab) [address] [place], [address], 12/06/2023 20:37:21 12/06/19 24 12/06/2023 AMYLA SE SERUM amylase 56 U/L 30-110 Not Available [facility] (Lab) [address] [place], [address], 12/06/2023 20:37:26 12/06/19 24 12/06/2023 URINA LYSIS COMPL ETE/I RIS W/RFX color YELLOW Not Available [facility] (Lab) [address] [place], [address], 12/06/2023 20:39:08 12/06/19 24 12/06/2023 URINA LYSIS COMPL ETE/I RIS W/RFX appear EXTRA TURBID abnormal Not Available [facility] (Lab) [address] [place], [address], 12/06/2023 20:39:08 12/06/19 24 12/06/2023 URINA LYSIS COMPL ETE/I RIS W/RFX specific gravity 1.019 1.001- 1.030 Not Available [facility] (Lab) [address] [place], [address], 12/06/2023 20:39:08 12/06/19 24 12/06/2023 URINA LYSIS COMPL ETE/I RIS W/RFX pH 6.5 pH_un its 5.0-9. 0 Not Available [facility] (Lab) [address] [place], [address], 12/06/2023 20:39:08 12/06/19 24 12/06/2023 URINA LYSIS COMPL ETE/I RIS W/RFX leukocytes >/=500 lamonte/u L negati ve- abnormal Not Available [facility] (Lab) [address] [place], [address], 12/06/2023 20:39:08 12/06/19 24 12/06/2023 URINA LYSIS COMPL ETE/I RIS W/RFX nitrite 2+ negati ve- abnormal Not Available [facility] (Lab) [address] [place], [address], 12/06/2023 20:39:08 12/06/19 24 12/06/2023 URINA LYSIS COMPL ETE/I RIS W/RFX protein 100 mg/dL negati ve- abnormal Not Available [facility] (Lab) [address] [place], [address], 12/06/2023 20:39:08 12/06/19 24 12/06/2023 URINA LYSIS COMPL ETE/I RIS W/RFX glucose NORMAL mg/dL normal - Not Available [facility] (Lab) [address] [place], [address], 12/06/2023 20:39:08 12/06/19 24 12/06/2023 URINA LYSIS COMPL ETE/I RIS W/RFX ketones NEGATI VE mg/dL negati ve- Not Available [facility] [address] [facility] [place], [address], 12/06/2023 20:39:08 12/06/19 24 12/06/2023 URINA LYSIS COMPL ETE/I RIS W/RFX urobilinogen NORMAL mg/dL normal - Not Available [facility] [address] [facility] [place], [address], 12/06/2023 20:39:08 12/06/19 24 12/06/2023 URINA LYSIS COMPL ETE/I RIS W/RFX bilirubin NEGATI VE mg/dL negati ve- Not Available [facility] (Lab) [address] [place], [address], 12/06/2023 20:39:08 12/06/19 24 12/06/2023 URINA LYSIS COMPL ETE/I RIS W/RFX blood 0.06 mg/dL negati ve- abnormal Not Available [facility] (Lab) [address] [place], [address], 12/06/2023 20:39:08 12/06/19 24 12/06/2023 URINA LYSIS COMPL ETE/I RIS W/RFX white blood cells >100 /i??h pfi?? 0-8 abnormal Not Available [facility] (Lab) [address] [place], [address], 12/06/2023 20:39:08 12/06/19 24 12/06/2023 URINA LYSIS COMPL ETE/I RIS W/RFX white blood cell clumps MANY /i??h pfi?? none seen- abnormal Not Available [facility] [address] [facility] [place], [address], 12/06/2023 20:39:08 12/06/19 24 12/06/2023 URINA LYSIS COMPL ETE/I RIS W/RFX red blood cells 21-40 /i??h pfi?? 0-4 abnormal Not Available [facility] (Lab) [address] [place], [address], 12/06/2023 20:39:08 12/06/19 24 12/06/2023 URINA LYSIS COMPL ETE/I RIS W/RFX bacteria MANY abnormal Not Available [facility] (Lab) [address] [place], [address], 12/06/2023 20:39:08 12/06/19 24 12/06/2023 URINA LYSIS COMPL ETE/I RIS W/RFX squamous epithelial NONE /i??l pfi?? abnormal Not Available [facility] (Lab) [address] [place], [address], 12/06/2023 20:39:08 12/06/19 24 12/06/2023 CULTU RE URINE urc ===== ===== ===== ===== ===== ===== ===== ===== ===== ===== ===== ===== ===== ===== ===== ===== ===== ===== ===== ===== ===== ===== ===== ===== Speci men NO.: [id number] Exam Statu s: Final Proce dure: CULTU RE URINE ===== ===== ===== ===== ===== ===== ===== ===== ===== ===== ===== ===== ===== ===== ===== ===== ===== ===== ===== ===== ===== ===== ===== ===== Iso/R esult : 01 Esche belkis a coli ESBL Antim icrob ic/Do se CAROL ANN Syste carol ann Urine __ ___ ___ Ampic illin >16 R* R* Aztre onam 16 R R Cefot axime >16 R R Cipro floxa saloni >2 R R Ertap enem <=0.5 SSUP SRES LTS SED RESU Genta micin <=2 S S Oxida se React ion N Extra Sensi tive Be POS Amp/S ulbac garrison <=8/4 S S Ceftr iaxon e >2 ESBL ESBL Cefta zidim e 8 I I Cefta zidim e/K Clav <=0.2 5 SUPP RESS Cefot axime /K Clavu <=0.5 SUPP RESS Cefaz luzmaria >16 R* R* Cefep lebron >16 R* R* Cefur oxime >16 R* R* Levof loxac in >4 R R Merop enem <=1 S S Pip/T azo <=8 S S Trime th/Loo lfa >2/38 R R Tetra cycli ne >8 R R Tobra mycin <=2 S S TS ED R ESUL TS ED R ESUL Cefta zidim e/Ranjeet colton <=8 SSUP SRES LTS SED RESU Nitro furan toin <=32 S S Not Available [facility] ([facility]) [address] [place], [address], 12/08/2023 07:34:45 12/22/19 24 12/22/2023 CT, abdom en + pelvi s, w/ contr ast [facility] [address] [place] [address] Patien t Name: ANA PHILIP IA Access ion #: [id number] Sex: F : 1950 7 Dictat ed By: Gagandeep Roca ms Attend ing Physic tommy: JACOB GARDINER Orderi ng Physic tommy: JACOB GARDINER Exam Date: 2023 08:58 AM Exam Name: CT ABDOME N PELVIS W Admitt ing Diagno sis(es ): Exam: CT abdome n and pelvis with contra st dated 024 8:58 AM CDT Histor y: 73 years old Female with abdomi nal pain. Compar lake Study: None availa ble at time of dictat ion. Contra st: Type of contra st: Isovue [address] inject ed:[address] wasted : 0 TECHNI QUE: A digita l hand etcher image was obtain ed. During the uneven tful, intrav enous admini strati on of contra st materi al, multis lice data acquis ition was obtain ed throug h the abdome n and pelvis . The data set was subseq uently recons tructe d into axial images . Images were review ed on a work statio n using a combin ation of axial and multip lanar using a variet y of window levels and settin gs. Radiat ion Dose Inform ation: CT Dose: CTDI volume is 34.3 mGy. Dose-l ength produc t is 1759 mGy*cm FINDIN GS: Lung Bases: There is a 4 mm right lower lobe pulmon luke nodule . Normal heart size. No pleura l or perica rdial effusi on. Liver: The liver is normal in size. No focal lesion s. Normal hepati c vascul ar enhanc ement. Gallbl adder and Biliar y Tree: There are multip le gallst ones. No biliar y ductal dilata tion. Page 1 [facility] [address] [address] [phone] Patien t Name: ANA PHILIP IA Access ion #: [id number] Sex: F : 1950 7 Dictat ed By: Gagandeep Roca ms Attend ing Physic tommy: EMMANUEL JOVEL [facility] Physic tommy: JACOB GARDINER Exam Date: 2023 08:58 AM Exam Name: CT ABDOME N PELVIS W Admitt ing Diagno sis(es ): Spleen : Unrema rkable Pancre as: The pancre as is normal in appear ance withou t focal lesion s or abnorm al enhanc ement. Adrena l Glands : There is a left adrena l low attenu ating lesion measur ing 2.6 cm likely repres enting an adrena l adenom a . The right adrena l is unrema rkable . Kidney s: Kidney s demons trate normal symmet zenaida enhanc ement withou t focal lesion s, calcul i or hydron ephros is. Urinar y bladde r: There is a suprap ubic cathet er. There is marked circum ferent ial wall thicke agustina of the urinar y bladde r measur ing up to 1.8 cm. Bowel: The stomac h is grossl y normal in appear ance. There is good opacif icatio n of the small and large bowel loops with enteri c contra st. No abnorm al wall thicke agustina. No abnorm al disten tion. Small bowel and colon are normal in calibe r and distri bution . The append ix is visual ized and is normal . Intrap eriton eal cavity : No pneumo perito neum. No ascite s. Lympha denopa thy: No mesent sarah, retrop eriton eal or peripo rtal lympha denopa thy. Abdomi nal Wall and Mesent russell: Unrema rkable . Vascul ature: The visual ized abdomi nal aorta is normal in size and calibe r. There are athero sclero tic calcif icatio ns in the aorta. Abdomi nal and pelvic vessel s demons trate normal enhanc ement. Pelvic Organs : Unrema rkable Muscul oskele vickey: No aggres sive focal bony lesion s, acute fractu res or disloc ation. Soft tissue s: Unrema rkable . IMPRES VALENTIN: 1. Circum ferent ial wall thicke agustina of the urinar y bladde r measur ing up to 1.8 cm. Findin gs could reflec t chroni c cystit is. 2. 2.6 cm left adrena l nodule . 3. 4 mm right lower lobe pulmon luke nodule . [facility] CT [facility] are perfor med using dose modula tion techni ques as approp riate to a perfor med exam includ ing the follow ing: Automa nico exposu re contro l was utiliz ed; adjust ment of the MA and/or KV accord ing to patien t size; and use of iterat deja recons tructi on techni que. Page 2 [facility] [address] [place] [address] Patien t Name: ANA PHILIP IA Access ion #: [id number] Sex: F : 1950 7 Dictat ed By: Gagandeep Roca ms Attend ing Physic tommy: EMMANUEL JOVEL Orderi Physic tommy: JAOCB GARDINER Exam Date: 2023 08:58 AM Exam Name: CT ABDOME N PELVIS W Admitt ing Diagno sis(es ): Electr onical ly Signed by: Gagandeep Roca ms at 2023 09:17: 11 AM Page 3 [id number] [facility] (Imaging) [address] [place], [address], 12/27/2023 14:23:52 Result Notes None recorded. 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 82072853401 9101 Active 2021 Not Available [facility] 3 10:48:05 Open wound of left lower leg 94383905517 856822 Active 2021 Not Available [facility] 3 10:48:05 Bilatera l shoulder joint pain 37123207134 982885 Active 2021 Not Available [facility] 3 10:48:05 Deep venous thrombos is 936491556 Active 2016 Not Available [facility] 3 10:48:05 Venous varices 332425799 Active 2016 Not Available [facility] 3 10:48:05 Chronic obstruct deja pulmonar y disease 42199958 Active 2017 on oxygen at home Not Available [facility] 3 10:48:05 Venous ulcer of lower extremit y due to chronic peripher al venous hyperten valentin 94073796443 9100 Active 2021 Not Available [facility] 3 10:48:05 Foot callus 940261093 Active 2018 Not Available [facility] 3 10:48:05 Cerebrov ascular accident 160038163 Active 2016 2015 Not Available [facility] 3 10:48:05 Abnormal findings on diagnost ic imaging of lung 755757483 Active 2019 Not Available [facility] 3 10:48:06 Vitamin D deficien cy 29225339 Active 2017 Not Available [facility] 3 10:48:06 Hyperten sive disorder 63918772 Active Not Available [facility] 3 10:48:06 Neuropat hy 391807059 Active 2016 Not Available [facility] 3 10:48:06 Murmur 401534810 Active 2016 Not Available [facility] 3 10:48:06 Streptoc occal sore throat 39687416 Completed Not Available [facility] 3 10:48:06 Diabetes mellitus 16881455 Active 2016 Not Available [facility] 3 10:48:06 COVID-19 642481846 Active 2020 Not Available [facility] 3 10:48:06 Kidney stone 39551241 Active 2016 Not Available [facility] 3 10:48:06 Type 2 diabetes mellitus 43238646 Active 2022 Rodolfo Wharton MD [address], [place], [address] , [employer] 3 12:29:52 Hyperlip idemia 56402144 Active 2022 Rodolfo Wharton MD [address], [address], [place], [address] , [employer] 3 12:30:07 [facility] hyperten valenitn 84116143 Active 2022 Rodolfo Wharton MD [address], [place], [address] , [employer] 3 12:30:35 Edema of lower extremit y 226909963 Active 2022 Rodolfo Wharton MD [address], [address], [place], [address] , [employer] 3 17:39:36 Anxiety 53495674 Active 2022 Rodolfo Wharton MD [address], [address], [place], [address] , [employer] 3 17:57:24 Osteoart hritis 695329537 Active 2022 Rodolfo Wharton MD [address], [address], [place], [address] , [employer] [facility] 3 17:58:17 Pain of right shoulder joint 39729417914 288354 Active 2022 Rodolfo Wharton MD [address], [address], [place], [address] , [employer] 3 17:21:31 Uncontro lled type 2 diabetes mellitus 677924198 Active 2022 Rodolfo Wharton MD [address], [place], [address] , [employer] 3 13:33:35 Cellulit is of lower limb 955158308 Active 2022 Rodolfo Wharton MD [address], [place], [address] , [employer] 3 17:56:11 Foot pain 19947665 Active 2022 FE Rodriguez [address], [place], [address] , [facility] [place] [facility] [employer] [facility] [employer] 3 13:57:33 Dysuria 19818787 Active 2022 Rodolfo Wharton MD [address], [place], [address] , [employer] [facility] [employer] 3 17:53:32 Blood in urine 13372273 Active 2022 Rodolfo Wharton MD [address], [place], [address] , [facility] [employer] [employer] 3 09:28:07 Anemia 168923516 Active 2022 Rodolfo Wharton MD [address], [place], [address] , [employer] 3 08:10:17 Abdomina l pain 90709022 Active 2023 Rodolfo Wharton MD [address], [place], [address] , [facility] [employer] [employer] 4 12:12:17 Acute urinary tract infectio n 799544411 Active 2023 Rodolfo Wharton MD [address], [place], [address] , [employer] [employer] [employer] 4 07:47:50 Disorder of skeletal system 13153088 Active 2023 FE Pascual-Leandra [address], [place], [address] , [employer] 4 11:09:42 Notes:Medical History: CVA A nxiety COVID infection 03/2021 Obesity Hypertension Hyperlipidemia T2DM with neuropathy Renal calculi Vit D deficiency Bilateral great saphenous varicose veins Problem Notes None recorded. Procedures Surgical History Date Name Laterality Status Provider Name and Address Organization Details Recorded Time 03/26/20 Medicare Wellness CPT Code, subsequent completed October JUNAID Cooley [place] [email or web address] 03/23/2024 11:07:02 03/12/20 15 Colonoscopy completed Not Available [facility] 09/30/19 10:43:12 03/12/20 15 endoscopy completed Not Available [facility] 3 10:43:12 Imaging Results Imaging Date Name Status LastModified by Organiz ation Details LastModified Time 12/22/2023 CT, abdomen + pelvis, w/ contrast completed [id number] [facility] ([facility]) [address] [place], [address], 12/27/2023 14:23:52 Procedure Notes None recorded. Medical Equipment None Reported. Allergies Allergen ID Allergen Name Allergen Category Reaction Reaction Severity Criticality Documentation Date Start Date Code Code System Note Provider Name and Address Organization Details Recorded Time 24315 Substance with sulfonami de structure and antibacte rial mechanism of action (substanc e) medicatio n hives Not available Not available 09/29/2022 57384 8003 SNOMED Not Available [facility] 3 10:52:58 19590 Product containin g penicilli n and antibioti c (product) medicatio n hives severe Not available 09/29/2022 80711 05 SNOMED Not Available [facility] 3 10:52:58 08724 latex environme nt,medica tion hives Not available Not available 09/29/2022 48115 91 RxNorm Not Available [facility] 3 10:52:58 91960 cephalexi n medicatio n hives Not available Not available 09/29/2022 2231 RxNorm Not Available [facility] 3 10:52:58 Medications Name Sig Start Date Stop Date Status Note LastModified by Organization Details LastModified Time pharmacist choice alcoholprep pads pads active Not Available Not Available No t Available clever choice comfort ez pen needle s [id number] 32g x 6 mm misc active Not Available Not Available Not Available furosemide 40 mg tablet TAKE 1 TABLET BY MOUTH TWICE DAILY NEEDED active Not Available Not Available No t Available fluconazole 100 mg tablet TAKE 1 TABLET BY MOUTH EVERY DAY 12/05 completed Not Available Not Available Not Available atorvastati n 40 mg tablet TAKE 1 TABLET BY MOUTH DAILY active Not Available Not Available No t Available silver sulfadiazin e 1 % topical cream 07/06 completed Not Available Not Available Not Available doxycycline hyclate 100 mg capsule TAKE 1 CAPSULE BY MOUTH TWICE DAILY 12/05 completed Not Available Not Available Not Available ketoconazol e 2 % shampoo APPLY TO THE AFFECTED AREA(S), LATHER, LEAVE IN PLACE FOR 5 MINUTES, AND THEN RINSE OFF WITH WATER BY TOPICAL ROUTE ONCE DAILY active Not Available Not Available No t Available clindamycin HCl 300 mg capsule TAKE 1 CAPSULE BY MOUTH THREE TIMES DAILY FOR 7 DAYS 07/06 completed Not Available Not Available Not Available albuterol sulfate 2.5 mg/3 mL (0.083 %) solution for nebulizatio n USE 1 VIAL VIA NEBULIZER FOUR TIMES DAILY NEEDED FOR WHEEZING OR SHORTNESS OF BREATH 07/06 completed Not Available Not Available Not Available azithromyci n 250 mg tablet TAKE 2 TABLETS (500 MG) BY ORAL ROUTE ONCE DAILY FOR 1 DAY THEN 1 TABLET (250 MG) BY ORAL ROUTE ONCE DAILY FOR 4 DAYS active Not Available Not Available No t Available ibuprofen 800 mg tablet TK 1 T PO Q 8 H PRN P active Not Available Not Available No t Available fluconazole 150 mg tablet TK 1 T PO QD FOR 1 DAY active Not Available Not Available No t Available hydrocodone 5 mg-acetamin ophen 325 mg tablet TAKE 1 TABLET BY MOUTH EVERY 6 HOURS NEEDED FOR PAIN active Not Available Not Available No t Available lisinopril 20 mg tablet TK 1 T PO QD 10/20 completed Not Available Not Available Not Available isosorbide mononitrate ER 30 mg tablet,exte nded release 24 hr TK 1 T PO D active Not Available Not Available No t Available Lantus U-100 Insulin 100 unit/mL subcutaneou s solution ADMINISTE R 80 UNITS UNDER THE SKIN EVERY MORNING 09/30 completed Not Available Not Available Not Available clindamycin HCl 150 mg capsule TK ONE C PO TID FOR 10 DAYS active Not Available Not Available No t Available torsemide 10 mg tablet Take 1 tablet every day by oral route for 90 days. active Not Available Not Available No t Available Accu-Chek Softclix Lancets 04/08 completed Not Available Not Available Not Available vancomycin 5 gram intravenous solution 12/05 completed Not Available Not Available Not Available amlodipine 2.5 mg tablet 04/08 completed Not Available Not Available Not Available clopidogrel 75 mg tablet TAKE 1 TABLET BY MOUTH DAILY active Not Available Not Available No t Available chlorthalid one 25 mg tablet active Not Available Not Available Not Available ciprofloxac in 250 mg tablet TAKE 1 TABLET BY MOUTH TWICE DAILY FOR 7 DAYS 12/07 completed Not Available Not Available Not Available amlodipine 5 mg tablet TAKE 1 TABLET BY MOUTH DAILY 07/06 completed Not Available Not Available Not Available ciprofloxac in 500 mg tablet TAKE 1 TABLET BY MOUTH EVERY 12 HOURS FOR 10 DAYS active Not Available Not Available No t Available sulfamethox azole 800 mg-trimetho prim 160 mg tablet 11/29 completed Not Available Not Available Not Available hydrocodone 10 mg-acetamin ophen 325 mg tablet TK 1 T PO BID PRN active Not Available Not Available No t Available vancomycin 1,000 mg intravenous injection 12/05 completed Not Available Not Available Not Available triamcinolo ne acetonide 0.1 % topical cream APPLY A THIN LAYER TO THE AFFECTED AREA(S) BY TOPICAL ROUTE 2 TIMES PER DAY prn active Not Available Not Available No t Available spironolact one 25 mg tablet 1 po qday active Not Available Not Available No t Available vancomycin 125 mg capsule 12/05 completed Not Available Not Available Not Available cefadroxil 500 mg capsule TK 1 C PO BID 07/04 completed Not Available Not Available Not Available oxycodone-a cetaminophe n 5 mg-325 mg tablet active Not Available Not Available No t Available famotidine 20 mg tablet TAKE 1 TABLET BY MOUTH TWICE DAILY NEEDED 03/26 completed Not Available Not Available Not Available blood-gluco se meter kit test TID dx E11.9. Hernandez-metri x 04/08 completed Not Available Not Available Not Available Kenalog 10 mg/mL suspension for injection In office injection administe red by the provider 09/30 completed [facility]: [phone] Not Available Not Available Not Available benzonatate 100 mg capsule TAKE 2 CAPSULES BY MOUTH THREE TIMES DAILY NEEDED FOR COUGH 04/08 completed Not Available Not Available Not Available doxycycline monohydrate 100 mg capsule Take 1 capsule twice a day by oral route with meals for 5 days. 12/02 completed Not Available Not Available Not Available dexamethaso ne 2 mg tablet TAKE 3 TABLETS BY MOUTH EVERY DAY AT 8 AM FOR 4 DAYS 04/08 completed Not Available Not Available Not Available cephalexin 500 mg capsule TK ONE C PO Q 12 H FOR 7 DAYS active Not Available Not Available No t Available simvastatin 20 mg tablet TAKE 1 TABLET BY MOUTH EVERY NIGHT AT BEDTIME active Not Available Not Available No t Available clotrimazol e-betametha sone 1 %-0.05 % topical cream APPLY 1 GRAM TO SKIN AROUND SUPRAPUBI C CATHETER TWICE DAILY FOR 2 WEEKS active Not Available Not Available No t Available gabapentin 300 mg capsule 01/05 completed Not Available Not Available Not Available gentamicin 0.1 % topical cream APPLY TOPICALLY TO THE AFFECTED AREA DAILY 03/26 completed Not Available Not Available Not Available cephalexin 500 mg tablet Take 1 tablet twice a day by oral route for 7 days. 10/20 completed Not Available Not Available Not Available hydrochloro thiazide 25 mg tablet TAKE 1 TABLET BY MOUTH EVERY MORNING active Not Available Not Available No t Available mupirocin 2 % topical ointment APPLY SMALL AMOUNT TOPICALLY TO THE AFFECTED AREA DAILY 03/26 completed Not Available Not Available Not Available furosemide 20 mg tablet TK 1 TO 2 TS PO QD PRN active Not Available Not Available No t Available ergocalcife rol (vitamin D2) 1,250 mcg (50,000 unit) capsule TAKE 1 CAPSULE BY MOUTH EVERY WEEK 04/08 completed Not Available Not Available Not Available Novolog U-100 Insulin aspart 100 unit/mL subcutaneou s solution 01/05 completed Not Available Not Available Not Available diazepam 10 mg tablet TAKE 1 TABLET BY MOUTH EVERY NIGHT AT BEDTIME active Not Available Not Available No t Available polyethylen e glycol 3350 17 gram/dose oral powder DISSOLVE 17 GRAMS IN LIQUID AND DRINK BY MOUTH DAILY NEEDED active Not Available Not Available No t Available levofloxaci n 500 mg tablet TAKE 1 TABLET BY MOUTH DAILY active Not Available Not Available No t Available levofloxaci n 750 mg tablet 03/29 completed Not Available Not Available Not Available methylpredn isolone 4 mg tablets in a dose pack TAKE 1 TABLET BY MOUTH THREE TIMES DAILY WITH FOOD. DO NOT TAKE WITH ASPIRIN OR NSAIDS SUCH ALEVE OR IBUPROFEN ETC active Not Available Not Available No t Available albuterol sulfate HFA 90 mcg/actuati on aerosol inhaler INHALE 2 PUFFS BY MOUTH EVERY 4 HOURS NEEDED active Not Available Not Available No t Available clobetasol 0.05 % scalp solution APPLY TO THE AFFECTED SCALP AREA BY TOPICAL ROUTE 2 TIMES PER DAY IN THE MORNING AND EVENING for up to 2 weeks active Not Available Not Available No t Available lisinopril 40 mg tablet TAKE 1 TABLET BY MOUTH EVERY DAY active Not Available Not Available No t Available doxycycline hyclate 100 mg tablet TAKE 1 TABLET BY MOUTH TWICE DAILY FOR 10 DAYS active Not Available Not Available No t Available Novolog FlexPen U-100 Insulin aspart 100 unit/mL (3 mL) subcutaneou s INJECT SUBCUTANE OUS 6 UNITS THREE TIMES DAILY WITH MEALS PLUS A SLIDING SCALE, MAX OF 65 UNITS A DAY 03/29 completed Not Available Not Available Not Available Spiriva with HandiHaler 18 mcg and inhalation capsules INHALE THE CONTENTS OF 1 CAPSULE DAILY active Not Available Not Available No t Available nitrofurant oin monohydrate /macrocryst als 100 mg capsule TAKE 1 CAPSULE BY MOUTH TWICE DAILY active Not Available Not Available No t Available capsaicin 0.1 % topical cream Apply to the bottom of the feet up to three times daily as needed 04/08 completed Not Available Not Available Not Available ranolazine ER 500 mg tablet,exte nded release,12 hr TK 1 T PO BID active Not Available Not Available No t Available BD Ultra-Fine Short Pen Needle 31 gauge x 5/16 USE DIRECTED active Not Available Not Available No t Available Lantus Solostar U-100 Insulin 100 unit/mL (3 mL) subcutaneou s pen ADMINISTE R 60 UNITS UNDER THE SKIN DAILY active Not Available Not Available No t Available Humalog KwikPen (U-100) Insulin 100 unit/mL subcutaneou s INJECT 6 UNITS UNDER THE SKIN THREE TIMES DAILY BEFORE MEALS PLUS SLIDING SCALE UP TO 65 UNITS PER DAY active Not Available Not Available No t Available Vitamin D3 125 mcg (5,000 unit) tablet Take 1 tablet every day by oral route for 90 days. 08/26 /2024 completed Not Available Not Available Not Available ropivacaine (PF) 5 mg/mL (0.5 %) injection solution Take 20 mg by injection route. 09/30 completed Not Available Not Available Not Available OneTouch Verio test strips USE THREE TIMES DAILY active Not Available Not Available No t Available Ultra Thin Lancets 30 gauge USE TO TEST THREE TIMES DAILY active Not Available Not Available No t Available Anoro Ellipta 62.5 mcg-25 mcg/actuati on powder for inhalation INHALE 1 PUFF BY MOUTH EVERY DAY DIRECTED 07/06 completed Not Available Not Available Not Available K-Tab 20 mEq tablet,exte nded release Take 1 tablet every day by oral route. 04/08 completed Not Available Not Available Not Available Jardiance 10 mg tablet active Not Available Not Available Not Available Jardiance 25 mg tablet Take 1 tablet every day by oral route for 90 days. active Not Available Not Available No t Available naloxone 4 mg/actuatio n nasal spray 03/26 completed Not Available Not Available Not Available OneTouch Verio Flex Meter USE DIRECTED active Not Available Not Available No t Available oxygen 2 litters at hs 2019 active Not Available Not Available Not Avai lable OneTouch Delica Plus Lancet 33 gauge TEST THREE TIMES DAILY active Not Available Not Available No t Available Gvoke HypoPen 2-Pack 1 mg/0.2 mL subcutaneou s auto-inject or active Not Available Not Available Not Available Mounjaro 2.5 mg/0.5 mL subcutaneou s pen injector 0.5 ml sc qweek 12/02 completed Not Available Not Available Not Available Vitals Date Recorded Body height Body mass index (BMI) Body weight Body temperature Heart rate Oxygen saturation Oxygen saturation in Arterial blood by Pulse oximetry Systolic blood pressure Diastolic blood pressure Provider Name and Address Organization Details Last Updated DateTime 4 162.56 cm 38.1 kg/m2 537775. 51 g 97.8 [degF] 68 /min 91 % 91 % 158 mm[Hg] 68 mm[Hg] Loretta Darden RN [place] [facility] [place] [email or web address] 4 12:03:59 Date Recorded Body height Body mass index (BMI) Body weight Body temperature Heart rate Oxygen saturation Oxygen saturation in Arterial blood by Pulse oximetry Systolic blood pressure Diastolic blood pressure Provider Name and Address Organization Details Last Updated DateTime 4 162.56 cm 37.9 kg/m2 300882. 91 g 98 [degF] 70 /min 90 % 90 % 150 mm[Hg] 78 mm[Hg] JUNAID Honeycutt [facility] [employer] [facility] 4 11:36:32 Date Recorded Body height Body mass index (BMI) Body weight Body temperature Oxygen saturation Oxygen saturation in Arterial blood by Pulse oximetry Heart rate Systolic blood pressure Diastolic blood pressure Provider Name and Address Organization Details Last Updated DateTime 4 162.56 cm 39.1 kg/m2 997324. 06 g 97.7 [degF] 92 % 92 % 88 /min 144 mm[Hg] 80 mm[Hg] JUNAID Honeycutt Jean Carlos [place] [employer] [facility] 4 11:25:14 Social History Question Answer Notes LastModified by Organization Details LastModified Time Tobacco Smoking Status Former Smoker quit smoking age 32 Not Available [facility] 09/29/2022 10:41:47 Do You Have An Advance Directive? Yes MIGRATION.0301 [id number] Information not available 09/29/2022 What Is Your Level Of Alcohol Consumption? None MIGRATION.030 213808 Information not available 09/29/2022 Are You Blind Or Do You Have Difficulty Seeing? No MIGRATION.030 805791 Information not available 09/29/2022 What Is Your Level Of Caffeine Consumption? Occasional MIGRATION.0301 667992 Information not available 09/29/2022 How Much Tobacco Do You Chew? None MIGRATION.030 052564 Information not available 09/29/2022 In The 14 Days Before Symptom Onset, Have You Had Close Contact With A Laboratory-confi rmed COVID-19 While That Case Was Ill? No MIGRATION.030 615037 Information not available 09/29/2022 In The 14 Days Before Symptom Onset, Have You Had Close Contact With A Person Who Is Under Investigation For COVID-19 While That Person Was Ill? No MIGRATION.030 913095 Information not available 09/29/2022 Are You Deaf Or Do You Have Serious Difficulty Hearing? Yes MIGRATION.0301 579216 Information not available 09/29/2022 What Type Of Diet Are You Following? REGULAR MIGRATION.0301 342135 Information not available 09/29/2022 Which Illicit Or Recreational Drugs Have You Used? None MIGRATION.0301 103236 Information not available 09/29/2022 Do You Or Have You Ever Used E-cigarettes Or Vape? Never Used Electronic Cigarettes MIGRATION.0301 522359 Information not available 09/29/2022 Have There Been Any Changes To Your Family Or Social Situation? No MIGRATION.0301 310192 Information not available 09/29/2022 What Is The Fluoride Status Of Your Home? Unknown MIGRATION.0301 461996 Information not available 09/29/2022 Are There Any Guns Present In Your Home? No MIGRATION.0301 576368 Information not available 09/29/2022 Do You Use Insect Repellent Routinely? No MIGRATION.0301 325071 Information not available 09/29/2022 [facility] MIGR[facility].0301 985341 Information not available 09/29/2022 What Was The Date Of Your Most Recent Tobacco Screening? 06/09/2022 MIGRATION.0301 753924 Information not available 09/29/2022 Do You Use Your Seat Belt Or Car Seat Routinely? Yes [email or web address] Information not available 12/02/2022 Do You Have Smoke And Carbon Monoxide Detectors In Your Home? Yes MIGRATION.0301 731618 Information not available 09/29/2022 Do You Or Have You Ever Used Smokeless Tobacco? Never Used Smokeless Tobacco MIGRATION.0301 848891 Information not available 09/29/2022 How Much Tobacco Do You Smoke? No MIGRATION.0301 123393 Information not available 09/29/2022 Do You Participate In Social Media? Yes [email or web address] Information not available 12/02/2022 Do You Feel Stressed (tense, Restless, Nervous, Or Anxious, Or Unable To Sleep At Night)? [email or web address] Information not available 12/02/2022 Do You Use Any Illicit Or Recreational Drugs? No MIGRATION.0301 921974 Information not available 09/29/2022 Do You Use Sunscreen Routinely? No MIGRATION.0301 800264 Information not available 09/29/2022 Has Tobacco Cessation Counseling Been Provided? No MIGRATION.0301 101724 Information not available 09/29/2022 Have You Recently Traveled Abroad? No MIGRATION.0301 372263 Information not available 09/29/2022 Do You Have Any Dietary Restrictions? No MIGRATION.0301 328838 Information not available 09/29/2022 Do You Or Have You Ever Used Any Other Forms Of Tobacco Or Nicotine? No MIGRATION.0301 512763 Information not available 09/29/2022 Sex: Unknown Functional Status Question Answer Note LastModified by Organizat ion Details LastModified Time Do you have difficulty walking or climbing stairs? Yes MIGRATION.18719 99792 Information not available 09/29/2022 Do you have transportation difficulties? No MIGRATION.44220 92228 Information not available 09/29/2022 Are you able to walk? YESASSIST with a cane not long periods of time MIGRATION.54801 69586 Information not available 09/29/2022 Do you have difficulty doing errands alone? 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 No MIGRATION.66880 70489 Information not available 09/29/2022 What is your exercise level? Occasional chair exercises MIGRATION.42803 97758 Information not available 09/29/2022 Mental Status Question Answer Note LastModified by Organizat ion Details LastModified Time Do you have difficulty concentrating, remembering or making decisions? Yes MIGRATION.[id number] 5 Information not available 09/29/2022 Family History Relationship Description Onset Age of this Age Resolved Age Notes LastModified by Organization Details LastModified Time Mother Hypertensive disorder MIGRATION.255 [id number] Not available 09/29/2022 10:43:13 Mother Malignant neoplasm of brain MIGRATION.189 9298407 Not available 09/29/2022 10:43:13 Mother Malignant neoplasm of uterus MIGRATION.661 4331110 Not available 09/29/2022 10:43:13 Mother Heart disease MIGRATION.256 7532592 Not available 09/29/2022 10:43:13 Paternal Grandmother Malignant tumor of ovary MIGRATION.044 3513846 Not available 09/29/2022 10:43:13 Paternal Grandfather Diabetes mellitus MIGRATION.085 8330320 Not available 09/29/2022 10:43:13 Brother Diabetes mellitus MIGRATION.189 9801305 Not available 09/29/2022 10:43:13 Brother Diabetes mellitus MIGRATION.352 0444469 Not available 09/29/2022 15:39:56 Medical History Condition Response ARTHRITIS Y USE OF BLOOD THINNERS Y VASCULAR DISEASE Y DIABETES, TYPE Y HEART DISEASE/HEART PROBLEMS Y LUNG DISEASE/DISORDER Y HYPERTENSION Y HIGH CHOLESTEROL / HYPERLIPIDEMIA Y OBESITY Y BLOOD CLOTS Y URINARY/BLADDER/KIDNEY PROBLEMS Y CORONARY ARTERY DISEASE (CAD) Y DEPRESSION (INCLUDING POST ) Y STROKE/TIA Y Gynecological History Statement/Question Response Menses Monthly N Obstetrics History GPAL:G 0 P 0 0 0 0 Immunizations Vaccine Type Date Status Note Provider Nam e and Address Organization Details Recorded Time Influenza, high-dose, quadrivalent, PF 3 completed Loretta Darden RN [facility], [place] - [facility] [employer] [facility] 05/25/2023 13:03:51 Influenza, split virus, quadrivalent, preservative 9 completed Not Available [facility] 09/29/2022 10:52:42 Influenza, high-dose, quadrivalent, PF 2 completed Not Available [facility] 09/29/2022 10:52:43 Influenza, high-dose, quadrivalent, PF 1 completed Not Available [facility] 09/29/2022 10:52:43 Influenza, high-dose, quadrivalent, PF 0 completed Not Available [facility] 09/29/2022 10:52:43 Influenza, high-dose, trivalent, PF 9 completed Not Available [facility] 09/29/2022 10:52:43 Tdap 9 completed Not Available [facility] 09/29/2022 10:52:43 Influenza, high-dose, trivalent, PF 8 completed Not Available [facility] 09/29/2022 10:52:43 Pneumococcal conjugate PCV 13 8 completed Not Available [facility] 09/29/2022 10:52:43 Influenza, high-dose, trivalent, PF 7 completed Not Available [facility] hospital 09/29/2022 10:52:43 Influenza, high-dose, trivalent, PF 4 completed VAZQUEZ Pascual [facility] [address], [place], [address], [place] [facility] 06/19/2024 23:00:41 Past Encounters Encounter ID Performer Location Encounter Start Date Encounter Closed Date Diagnosis/Indication Diagnosis SNOMED-CT Code Diagnosis ICD10 Code Diagnosis Note [id number] [facility] [place] [address] [place] [address] 10/08/2020 00:00:00 10/08/2020 10:18:20 [id number] [facility] [place] [address] [place] [address] 10/30/2020 00:00:00 11/27/2020 10:22:31 [id number] [facility] Yvette Terry [address] [facility] [address] [place] [address] 11/24/2020 00:00:00 11/24/2020 13:23:44 [id number] [facility] [place] [address] [facility] [facility] [address] [place] [address] 12/10/2020 00:00:00 12/22/2020 22:51:22 [id number] [facility] [place] [address] [facility] [place] [address] 01/01/2021 00:00:00 01/01/2021 20:13:05 [id number] [facility] [place] [address] [facility] [facility] [address] [place] [address] 01/23/2021 00:00:00 01/23/2021 17:12:26 [id number] [facility] [place] [address] [facility] [facility] [address] [place] [address] 02/18/2021 00:00:00 02/18/2021 13:16:29 [id number] [facility] [place] [address] [facility] [address] [place] [address] 04/08/2021 00:00:00 04/08/2021 20:37:26 [id number] [facility] [place] [address] [place] [address] 04/28/2021 00:00:00 04/28/2021 09:02:22 [id number] [facility] [place] [address] [place] [address] 05/22/2021 00:00:00 05/22/2021 19:36:30 [id number] [facility] [place] [address] [place] [address] 08/24/2021 00:00:00 08/24/2021 19:03:17 [id number] [facility] [place] [address] [place] [address] 11/03/2021 00:00:00 11/03/2021 14:52:30 [id number] [facility] [place] [address] [place] [address] 11/26/2021 00:00:00 11/26/2021 10:07:59 [id number] [facility] [address] [place] [address] 12/29/2021 00:00:00 12/29/2021 16:31:37 [id number] [facility] [address] [place] [address] 01/05/2022 00:00:00 01/06/2022 10:00:03 [id number] [facility] [place] [address] [place] [address] 03/29/2022 00:00:00 03/31/2022 08:01:48 [id number] [facility] [place] [address] [place] [address] 03/30/2022 00:00:00 03/30/2022 22:01:38 [id number] [facility] [address] [place] [address] 05/18/2022 00:00:00 05/18/2022 12:11:54 [id number] [facility] Primary Care [facility] [address] [facility] [address] [place] [address] 06/10/2022 00:00:00 06/29/2022 21:53:48 [id number] [facility] [address] [place] [address] 07/06/2022 00:00:00 07/06/2022 11:26:08 [id number] Rodolfo Wharton MD [facility] Primary Care [address] [place] [address] 09/30/2022 11:50:34 09/30/2022 12:45:49 Type 2 diabetes mellitus 04772980 E11.9 freestyle ofelia 2 ordder Hyperlipidemia 36712078 E78.5 Essential hypertension 46602755 I10 Vitamin D deficiency 347 75229 E55.9 [id number] [facility] [address] [place] [address] 10/05/2022 17:27:04 10/05/2022 17:50:02 Edema of lower extremity 360787133 R60.0 M79.661 suspect superficia l thrombophl ebitis, but cannot rule out DVT/cellul itiswill get US to rule out dvtdoxycyc line 100 mg po bid x 7 days (allergic to pcn/cephal exin/sulfa ) to cover cellulitis elevate when sitting, but ok to stay activemay use heating pad prnsoap and water to skin daily, ok to use lotion/dominic sturizers on skincall/r eturn if no improvemen t in 1-2 days or sooner if needed reviewed s/s that warrant urgent/marvin rgent eval in meantime [id number] Rodolfo Wharton MD [facility] Primary Care [facility] [address] [facility] [address] [place] [address] 10/11/2022 17:01:10 10/12/2022 16:15:32 Pain of right shoulder joint 6253767829 7710891 M25.511 Pt does not wish to try oral meds or PT, will consider injection or surgeryort ho referral given Diabetes mellitus 454682 09 E11.9 not in good controlhas failed metformin due to med s/econtinu e humalog and lantussamp le given of mounjaro 2.5 mg sc qweek, pt gave first injection herself in officerevi ewed potential med s/ef/u in 4 weeks or sooner if needed [id number] Rodolfo Wharton MD [facility] Primary Care [address] [place] [address] 12/02/2022 17:18:26 12/29/2022 14:49:21 Dysuria 48165060 R30.0 may be irritation s/p kimble Pain of ri ght shoulder joint 3404001440 9328602 M25.511 Pt does not wish to try oral meds or PT, will consider injection or surgeryort ho referral given Diabetes mellitus 154321 09 E11.9 not in good controlhas failed metformin due to med s/econtinu e humalog and lantussamp le given of mounjaro 2.5 mg sc qweek, pt gave first injection herself in officerevi ewed potential med s/ef/u in 4 weeks or sooner if needed update 12/02/22: d/c mounjaro due to med s/e [id number] Rodolfo Wharton MD [facility] Primary Care [address] [place] [address] 05/25/2023 12:02:56 05/25/2023 12:31:55 Bilateral shoulder joint pain 7694908339 0076703 M25.511 M25.512 PT referral givenf/u in 6 weeks, will get MRI if no improvemen t Osteoarthritis 547463944 M19.90 Administra tion of influenza vaccine 16466998 Z23 Essential hypertension 51500256 I10 Hyperlipidemia 79469252 E78.5 Vitamin D deficiency 347 93327 E55.9 Type 2 monet betes mellitus 65412052 E11.9 freestyle ofelia 2 ordder [id number] Rodolfo Wharton MD [facility] Primary Care [address] [place] [address] 06/29/2023 16:18:41 06/29/2023 17:21:12 [id number] Rodolfo Wharton MD [facility] Primary Care [facility] [address] [facility] [facility] [address] [place] [address] 12/06/2023 11:54:13 12/06/2023 12:34:52 Abdominal pain 59543900 R10.9 Bilateral shoulder joint pain 9209253312 3743120 M25.511 M25.512 PT referral given-has appt set up Osteoarthritis 989833858 M19.90 [id number] FE Dempsey-C [facility] Primary Care [facility] [address] [facility] [facility] [address] [place] [address] 01/25/2024 15:08:43 01/25/2024 15:23:24 [id number] FE Pascual-C [facility] Primary Care [facility] [address] [facility] [address] [place] [address] 03/26/2024 11:27:15 03/26/2024 11:58:12 Adult health examination 894603506 Z00.00 Patient presented to office today for their Medicare Annual Wellness Visit. Education was provided on healthy nutrition, including a diet rich in fruits and vegetables , minimizing simple carbohydra bryan, salt, and saturated fats. Encouraged regular cardiovasc ular exercise as tolerated with limited ambulation , 5 times per week. Emphasized preventive health measures and educated pt on fall prevention and community- based lifestyle interventi ons to help reduce health risks and promote healthy living. Screening for disorder 415358143 Z13.9 Osteoarthritis 521034160 M19.90 [place] U[place] Abnormal f indings on diagnostic imaging of lung 547414006 R91.[address] scan November 2024. Anxiety 20579585 F41.9 ANITHA-7 (05/21).De nies SI/HIWill refill meds as needed. Chronic ob structive pulmonary disease 55601008 J44.9 patient uses 2L oxygen at home as needed, primarily at bedtime Essential hypertension 12817947 I10 initial 150/78rech marisel 146/78Will continue to fill meds as neededWill recheck labs as listed below Hyperlipidemia 87553403 E78.5 Will refill meds as neededWill recheck labs as listed below Neuropathy 339291066 G62 .9 Patient requests neurologis t referral for further evaluation and treatment Type 2 monet betes mellitus 39430295 E11.9 Will continue to fill meds as neededWill recheck labs as listed below Vitamin D deficiency 347 71443 E55.9 Will check labs as listed below. Body mass index 30+ - obesity 317702594 Z68.37 Discussed healthy diet and being more active. Screening for malignant neoplasm of breast 966583891 Z12.39 [id number] VAZQUEZ Pascual [facility] [address] [facility] [facility] [address] [place] [address] 06/14/2024 11:18:24 06/14/2024 14:23:54 Administration of influenza vaccine 47184422 Z23 Cellulitis of lower limb 323508239 L03.119 Will treat as listed below. Patient will follow up as needed. Health Concerns Section Related Observation LastModified by Organization Detai ls LastModified Time None Recorded Concern Status LastModified by Organization Details LastModified Time None Recorded Advance Directives Directive Y: Payers Encounter Date Sequence Insurance Name Policy Number Policy Nelson Covered Member ID Nelson Member ID Guarantor Name 06/29/[address] [facility] (MEDICARE REPLACEMENT/AD VANTAGE - PPO) [id number] Radha Ortiz [id number] Radha Ortiz 06/29/2023 2 [place] MEDICARE REPLACEMENT PRIMARY) Radha Ortiz [id number] Radha Ortiz 12/06/[address] [facility] (MEDICARE REPLACEMENT/AD VANTAGE - PPO) [id number] Radha Ortiz [id number] Radha Ortiz 12/06/2023 2 [place]IC[place]PLACEMENT [place]IMARY) Radha Ortiz [id number] Radha Ortiz 01/25/[address] [facility] (MEDICARE REPLACEMENT/AD VANTAGE - PPO) [id number] Radha Ortiz [id number] Radha Ortiz 01/25/2024 2 [place]ICARE REPLACEMENT PRIMARY) Radha Ortiz [id number] Radha Ortiz 03/26/[address] [facility] (MEDICARE REPLACEMENT/AD VANTAGE - PPO) [id number] Radha Ortiz [id number] Radha Ortiz 03/26/2024 2 [place] MEDICARE REPLACEMENT PRIMARY) Radha Ortiz [id number] Radha Ortiz 06/14/[address] [facility] (MEDICARE REPLACEMENT/AD VANTAGE - PPO) [id number] Radha Ortiz [id number] Radha Ortiz 06/14/2024 2 [place] MEDICARE REPLACEMENT PRIMARY) Radha Ortiz [id number] Radha Ortiz Notes Date Note Type Note Provider Name and Address Organization Details Recorded Time 12/06/2023 text/html upper abd pain comes and goes, feels like there is some distension, appetite is down, abd just doesn't feel right. She has chronic constipation. No diarrhea, no blood in stools. no home blood pressures for review, she normally takes her blood pressure medication in AM but didn't take it today home blood sugars are running bad , can be 300-400, she does miss her insulin a few times per week. has upcoming appt with endocrinology has upcoming appt with PT, needs updated referral for her bilateral shoulder pain Rodolfo Wharton MD [address] [place] [address], [place], [address], [facility] [employer] [facility] 12/18/2023 13:12:05 03/26/2024 text/html Patient is a 73 year old female that presents to the office for Medicare Annual Wellness. Patient reports she followed up with Urology after her CT scan in November, was given antibiotics and her symptoms have improved. Will repeat CT scan next year to monitor nodule on Adrenal gland and lung. Patient reports the water blister she inquired about earlier this month is well healed. Patient reports her pain in bilateral lower extremities is getting worse and is making it difficult to sleep. Patient would like to follow up with neurologist for further evaluation and treatment as she does not like to take the Hydrocodone. Patient is requesting a refill of Hydrocodone while she waits to see neurologist because it does help with her pain. Patient reports she lost her handicap sign for her mirror and needs a new form filled out-form provided. Patient reports she is still using oxygen at home, primarily at bedtime, 2L. Patient feels she is doing well on current medications and has no other medical concerns aside from what is discussed previously. Patient checks her blood sugars three times daily as recommended. We will keep medication regimen the same, adjustments will be made as indicated by labs. Patient denies chest pain and shortness of breath, nausea vomiting and diarrhea. Patient will follow up every 3 months for chronic care management. labs-orderedmammogr am-ordered Andersoncolonoscopy -declinesFlu-UTDCov bs-vrusbcrcRaig-MTP (2019)Shingles-decl ujqmFhgxdl-YTUNON-d eclines VAZQUEZ Pascual [address] [facility], [facility] [address], [place], [address], [employer] 04/05/2024 11:43:54 06/14/2024 text/html Patient is a 73 year old female that presents to the office for follow up. Patient states she initially scheduled the appointment for a cough however that has resolved. Patient is concerned with redness of right leg that feels warm to the touch today. Patient reports history of cellulitis. Patient denies numbness and tingling of lower extremity. Patient denies fevers. Patient requesting to update flu shot while in office today. VAZQUEZ Pascual [address], [facility] [address], [place], [address], [employer] 06/19/2024 23:04:56 OBGyn Episode No OBEpisode recorded.
--- OUTSIDE RECORDS SUMMARY | 2024-08-28 13:08 | XMS_ITS | Encounter Summary ---
Author Organization [facility] Care Team Providers Care Sample Hand Name Role Phone Chris Ann DO Primary Care Provider + Adele Wharton MD Primary Care Provider + Nubia Lopez NP Primary Care Provider [phone] Encounter Details Date Type Department Care Team (Latest Contact Info) Description 01/04/2017 Orders Only [facility] Provider, MD Angelique [address] [place] [address] Social History Tobacco Use Types Packs/Day Years Used Date Smoking Tobacco: Never Assessed Comments Unknown Sex and Gender Information Value Date Recorded Sex Assigned at Not on file 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 Historical Provider [facility] MAXI READ Final Result documented in this encounter Visit Diagnoses Not on filedocumented in this encounter Care Teams Sample Hand Relationship Specialty Start Date End Date [place], Chris Trell, DO PCP - General Family Medicine 11/08/19 03/28/20 Adele Wharton MD [address] [place] [address] PCP - General 03/29/20 06/19/24 Nubia Lopez NP [address] [place] [address] PCP - General Family Medicine 06/20/24 documented as of this encounter
--- OUTSIDE RECORDS SUMMARY | 2024-08-28 13:08 | XMS_ITS | Encounter Summary ---
Author Organization [facility] Facility Care Team Providers Care Database Management Specialist Name Role Phone Chris Ann DO Primary Care Provider + Adele Wharton MD Primary Care Provider + Nubia Lopez NP Primary Care Provider [phone] Encounter Details Date Type Department Care Team (Latest Contact Info) Description 03/16/2016 Orders Only [facility] Provider, MD Angelique [address] [place] [id number] Social History Tobacco Use Types Packs/Day Years Used Date Smoking Tobacco: Never Assessed Comments Unknown Sex and Gender Information Value Date Recorded Sex Assigned at Not on file 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 Historical Provider Final Res ult * SCAN - LABS (03/17/2016 12:00 AM CDT) Narrative 03/17/2016 12:00 AM CDT Ordered by an unspecified provider. us Historical Provider Final Res ult documented in this encounter Visit Diagnoses Not on filedocumented in this encounter Care Teams Database Management Specialist Relationship Specialty Start Date End Date Chris Ann DO PCP - General Family Medicine 11/08/19 03/28/20 Adele Wharton MD [address] [place] [address] PCP - General 03/29/20 06/19/24 Nubia Lopez NP [address] [place] [address] PCP - General Family Medicine 06/20/24 documented as of this encounter
--- OUTSIDE RECORDS SUMMARY | 2024-08-28 13:08 | XMS_ITS | Encounter Summary ---
Author Organization 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 us Historical Provider MD Final Res ult * SCAN - LABS (02/11/2016 12:00 AM CDT) Narrative 02/11/2016 12:00 AM CDT Ordered by an unspecified provider. us Historical Provider MD Final Res ult * SCAN - LABS (02/11/2016 12:00 AM CDT) Narrative 02/11/2016 12:00 AM CDT Ordered by an unspecified provider. Historical Provider Final Res ult documented in this encounter Visit Diagnoses Not on filedocumented in this encounter Care Teams Electrician'S Assistant Relationship Specialty Start Date End Date Chris Ann DO PCP - General Family Medicine 11/08/19 03/28/20 Adele Wharton MD [address] [address] PCP - General 03/29/20 06/19/24 Nubia Lopez NP [address] [place] [address] PCP - General Family Medicine 06/20/24 documented as of this encounter
--- NOTE | 2024-08-28 13:57 | ED.GENADULT ---
HPI - General Adult General Chief complaint: Wound/Laceration Stated complaint: leg infection Time Seen by Provider: 08/28/24 13:57 Focused HPI: Radha Ortiz is a 73 y/o female with PMHX of DM who presents with complaints of having a wound to her right leg that started two weeks ago. She states it started from a scratch from her walker - she states that she went to an about a week ago and she was started on PO antibiotics but was told if she gets worse to go to the ER. She states she broke out in a fever last night and she feels that the wound is getting worse. GENERAL: Well-appearing, well-nourished, and in no acute distress. HEAD: Normocephalic, atraumatic. CHEST: Clear to auscultation. ?No respiratory distress. HEART: Regular rate and rhythm.? NEURO: ?Alert and oriented x3. Patient screened in triage and initial orders placed.? ?Additional care and disposition to be based upon?diagnostic testing and treatment. Related Data Home Medications ?Medication ?Instructions ?Recorded ?Confirmed ?Last Taken ?Type aspirin 81 mg tablet,delayed 81 mg PO DAILY 03/08/21 06/19/24 Unknown History release atorvastatin 40 mg tablet 40 mg PO DAILY 03/08/21 06/19/24 Unknown History clopidogrel 75 mg tablet 75 mg PO DAILY 03/08/21 06/19/24 Unknown History cyanocobalamin (vitamin B-12) 500 500 mcg PO DAILY 01/30/22 06/19/24 Unknown History mcg lozenges (Vitamin B-12) diazepam 10 mg tablet 10 mg PO HS 01/30/22 06/19/24 Unknown History hydrocodone 5 mg-acetaminophen 325 1 tablet Q6H 01/30/22 06/19/24 Unknown History mg tablet lisinopril 40 mg tablet 40 mg PO DAILY 01/30/22 06/19/24 Unknown History spironolactone 25 mg tablet 25 mg PO DAILY 01/30/22 06/19/24 Unknown History hydrochlorothiazide 25 mg tablet 25 mg PO DAILY 06/19/24 06/19/24 Unknown History torsemide 10 mg tablet 10 mg PO QAM 06/19/24 06/19/24 Unknown History Allergies Allergy/AdvReac Type Severity Reaction Status Date / Time latex Allergy Unknown Hives Verified 06/19/24 08:45 Penicillins Allergy Unknown HIVES Verified 06/19/24 08:45 Sulfa (Sulfonamide Allergy Unknown REDNESS/ALEXANDRA Verified 06/19/24 08:45 Antibiotics) H [facility] Past Medical History Medical History Mild coronary artery disease Uncontrolled diabetes mellitus HgA1c > 10 on admission Obesity (BMI 30-39.9) Chronic respiratory failure with hypoxia, on home oxygen therapy COPD (chronic obstructive pulmonary disease) Hypertension Diabetes Surgical History Surgical History History of lithotripsy Family History Family History Sibling Family history of obesity Family history of migraine headaches Hypertension Asthma Family history of diabetes mellitus in first degree relative Mother Family history of malignant neoplasm of brain Other Family history of alcoholism Social History Social History Smoking status: Former smoker Tobacco type: cigarettes Second hand tobacco smoke exposure: No Alcohol intake: never Substance use: never Substance use type: does not use Do You Feel Safe in your Home?: Yes Lack of Transportation: No Lack of Food: Never True Current Housing: I Have Housing Concerned About Future Housing: No Difficulty Paying Gas/Electric Bills: No Difficulty Paying for Meds: No Currently Unemployed: No Education: High School Diploma/GED Difficulty w/ Childcare or Family Care: No Gender identity (if verbalized by the patient): Female Spiritual care concerns: No Course Vital Signs Vital signs: Vital Signs Temperature 36.6 C 08/28/24 13:01 Pulse Rate 79 08/28/24 13:01 Respiratory Rate 20 08/28/24 13:01 Blood Pressure 147/62 H 08/28/24 13:01 Pulse Oximetry 93 08/28/24 13:01 Oxygen Delivery Room Air 08/28/24 13:01 Temperature 36.6 C 08/28/24 13:01 Pulse Rate 77 08/28/24 15:22 Respiratory Rate 16 08/28/24 16:34 Blood Pressure 186/53 H 08/28/24 17:33 Pulse Oximetry 95 08/28/24 17:33 Oxygen Delivery Room Air 08/28/24 13:01 Medical Decision Making Vital Signs Vital Signs: Vital Signs Temperature 36.6 C 08/28/24 13:01 Pulse Rate 79 08/28/24 13:01 Respiratory Rate 20 08/28/24 13:01 Blood Pressure 147/62 H 08/28/24 13:01 Pulse Oximetry 93 08/28/24 13:01 Oxygen Delivery Room Air 08/28/24 13:01 Temperature 36.6 C 08/28/24 13:01 Pulse Rate 77 08/28/24 15:22 Respiratory Rate 16 08/28/24 16:34 Blood Pressure 186/53 H 08/28/24 17:33 Pulse Oximetry 95 08/28/24 17:33 Oxygen Delivery Room Air 08/28/24 13:01 Lab Data 08/28/24 15:19 08/28/24 15:19 Labs: Lab Results 08/28/24 08/28/24 Range/Units 15:19 16:03 WBC 10.4 H (4.5-10.0) K/mm3 RBC 3.99 L (4.2-5.4) M/mm3 Hgb 12.2 (12.0-15.0) g/dL Hct 37.5 (37.0-47.0) % MCV 94.0 (80-100) fl MCH 30.6 (26-34) pg MCHC 32.5 (32-36) g/dl RDW 12.8 (11.5-14.5) % Plt Count 223 (150-375) k/mm3 MPV 11.0 H (7.4-10.4) fl Immature Gran % (Auto) 0.4 (0-0.5) % Neut % (Auto) 76.5 H (45.5-73.1) % Lymph % (Auto) 13.7 L (18.3-44.2) % [place] % (Auto) 7.8 (2.6-8.5) % Eos % (Auto) 1.2 (0-4.4) % Baso % (Auto) 0.4 (0.2-1.2) % Lymph # (Auto) 1.42 (0.9-3.2) K/mm3 [place] # (Auto) 0.8 H (0.1-0.6) K/mm3 Eos # (Auto) 0.1 (0-0.3) K/mm3 Baso # (Auto) 0.0 (0.0-0.1) K/mm3 Abs Immat Gran (auto) 0.04 H (0.00-0.031) K/mm3 Absolute Neuts (auto) 8.0 H (1.3-6.7) K/mm3 Absolute Nucleated RBC 0.000 (0.0-0.012) K/mm3 Nucleated RBC % 0.0 (0.0-0.2) % Sodium 135 L (137-145) mmol/L Potassium 4.6 (3.4-5.0) mmol/L Chloride 97 L (98-107) mmol/L Carbon Dioxide 33 H (22-30) mmol/L Anion Gap 5 (4-12) mmol/L BUN 31 H (7-17) mg/dL Creatinine 0.99 (0.7-1.0) mg/dL Estim Creat Clear Calc 51 ml/min Estimated GFR 55 L (59 - ) Glucose 311 H (65-110) mg/dL Lactic Acid 0.8 (0.7-2.0) mmol/L Calcium 9.3 (8.4-10.2) mg/dL Total Bilirubin 0.9 (0.2-1.3) mg/dL AST 17 (14-36) U/L ALT 12 (6-35) U/L Alkaline Phosphatase 85 (38-126) U/L Total Protein 7.0 (6.3-8.2) g/dL Albumin 3.8 (3.5-5.1) g/dL Urine Color Yellow (Yellow) Urine Appearance Clear (Clear) Urine pH 5.5 (5.0-9.0) Ur Specific [place] 1.021 (1.001-1.035) Urine Protein 3+ H (Negative) mg/dL Urine Glucose (UA) 3+ H (Negative) mg/dL Urine Ketones Negative (Negative) mg/dL Ur Blood (Man) 1+ H (Negative) Urine Nitrate Positive H (Negative) Urine Bilirubin Negative (Negative) Urine Urobilinogen 0.2 (<2.0) mg/dL Add Ur Microanalysis Reviewed Leukocyte Esterase Rfl 2+ H (Negative) MIMI/UL Urine RBC 3-5 H (0-2) /hpf Urine WBC >100 H (0-3) /hpf Urine WBC Clumps Present H (None) /HPF Ur Squamous Epith Cells None seen (Few) /hpf Urine Bacteria 2+ H /hpf Urine Casts 0-2 Hyaline Casts Present (None) /lpf Urine Yeast (Budding) Present H (None) /hpf Influenza A (RT-PCR) Negative (Negative) Influenza B (RT-PCR) Negative (Negative) RSV (RT-PCR) Negative (Negative) SARS-CoV-2 RNA (RT-PCR) Negative (Negative) Discharge Plan Discharge Clinical Impression: Acute UTI, Leg wound, right Patient Disposition: Home, Self-Care Condition: Stable Instructions: Antibiotic Form, Catheter-associated Urinary Tract Infection (ED), Chronic Wounds (ED) Additional Instructions: Please take the antibiotics as instructed. If the redness in her leg is getting worse please return to the ED for re-evaluation. If you develop fevers, weakness or feel like her condition is worse please return to the ED. Please call your primary care office and arrange follow-up in the next 24-48 hours so they can ensure that your wound is healing appropriately. They may be able to refer you to a wound care clinic. Patient Language: Portuguese Prescriptions: New cefdinir 300 mg capsule 300 mg PO Q12H Qty: 14 0RF No Action hydrochlorothiazide 25 mg tablet 25 mg PO DAILY torsemide 10 mg tablet 10 mg PO QAM Rx Instructions: take once a week insulin glargine [Lantus Solostar U-100 Insulin] 100 unit/mL (3 mL) insulin pen 60 unit subcut DAILY Qty: 60 1RF Gvoke HypoPen 2-Pack 1 mg/0.2 mL auto-injector 1 mg subcut ONCE Qty: 0.4 4RF Rx Instructions: may repeat once after 15 minutes if no response glucose [Dex4 Glucose] 4 gram tablet,chewable 16 g PO Q15M PRN (Reason: hypoglycemia) Qty: 60 1RF Rx Instructions: until symptoms of low blood sugar are controlled (DME) pen needle, diabetic [CareTouch Pen Needle] 29 gauge x 1/2 needle See Rx Instructions .Route Qty: 400 2RF Rx Instructions: Use to administer insulin 4 times a day insulin lispro [Humalog KwikPen Insulin] 100 unit/mL insulin pen 10 unit subcut TIDWMEAL MDD 66 Qty: 60 1RF Rx Instructions: 10 units premeal + SSI 150-200: 2 units 201-250: 4 units 251-300: 6 units 301-350: 8 units 351-400: 10 units >401: 12 unit atorvastatin 40 mg tablet 40 mg PO DAILY clopidogrel 75 mg tablet 75 mg PO DAILY aspirin 81 mg Tablet,Delayed Release (Dr/Ec) 81 mg PO DAILY spironolactone 25 mg Tablet 25 mg PO DAILY lisinopril 40 mg Tablet 40 mg PO DAILY cyanocobalamin (vitamin B-12) [Vitamin B-12] 500 mcg Lozenge 500 mcg PO DAILY diazepam 10 mg Tablet 10 mg PO HS hydrocodone-acetaminophen 5-325 mg tablet 1 tablet Q6H Follow-up/Referrals: Akiko,Adele Giang MD [Primary Care Provider] - 2 Days (wound check )
--- OUTSIDE RECORDS SUMMARY | 2024-08-28 14:47 | XMS_ITS | Encounter Summary ---
Author Organization [facility] Address [address] [place] [address]. [place] [address] [place] [address] Care Team Providers Care Inspecting Machine Adjuster Name Role Phone Adele Wharton MD Primary Care Provider [phone] Kt Lizama MD Unavailable Alphonse Lewis DPM Unavailable [phone] Encounter Details Date Type Department Care Team (Late st Contact Info) Description 11/07/2020 Abstract [facility] [address] Cassie Clemons [place] Social History Tobacco Use [...] on filedocumented in this encounter Care Teams Inspecting Machine Adjuster Relationship Specialty Start Date End Date Adele Wharton MD [address] [place] [address] PCP - General FAMILY PRACTICE 03/05/20 [place] [address] [place] [address] CARDIOVASCULAR DISEASE 04/04/20 Alphonse Lewis, V[facility] [address] [place] [address], [address] [place] [address] Referring Physician PODIATRY/SURGERY 03/12/22 documented as of this encounter
--- OUTSIDE RECORDS SUMMARY | 2024-08-28 14:47 | XMS_ITS | Referral Summary ---
Author Organization [facility] Address [address] [place] [address] Care Team Providers Care Header Up Name Role Phone Nubia Lopez NP Primary Care Provider [phone] Encounters Date Type Department Care Team Description 06/26/2024 11:30 AM SIGNAL OPERATOR - 06/26/2024 12:15 PM SIGNAL OPERATOR Surgery [facility] Operating Room [address] [place] [address] Davida León MD INSERTION SUPRAPUBIC TUBE with cystoscopy 06/26/2024 10:58 AM SIGNAL OPERATOR Anesthesia Event [facility] Operating Room [address] [place] [address] Nuno Lorenz MD Kory, Christopher James, MD 06/26/2024 9:21 AM SIGNAL OPERATOR - 06/26/2024 1:05 PM SIGNAL OPERATOR Hospital Encounter [facility] Operating Room [address] [place] [address] Davida León MD Discharge Disposition: Discharge to home or self care 06/06/2024 10:00 AM SIGNAL OPERATOR Office Visit [facility] Pulmonology [address] [facility] [address] [place] [id number] Luigi Yost MD Panlobular emphysema (HCC) [...] skin daily before breakfast 11/03/19 22 Active FOB.comTouch Delica Plus Lancet 33 gauge misc 3 (three) times a day 10/02/19 22 Active FOB.comToPhoRent Verio Reflect Meter misc USE TO TEST BLOOD SUGAR THREE TIMES DAILY 10/02/19 22 Active FOB.comToPhoRent Verio test strips strip 3 (three) times [...] mg tabletIndications :Dyslipidemia,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) Take 1 tablet (40 mg total) by mouth daily 90 tablet 3 11/10/19 24 Active chlorthalidone (HYGROTON) 25 mg tabletIndications :Dyspnea on exertion,Dyslipid emia Take 1 tablet (25 mg total) by mouth daily 90 tablet 3 11/10/19 24 Active clopidogreL (PLAVIX) 75 mg tabletIndications :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),TIA (transient ischemic attack) Take 1 tablet (75 mg total) by mouth daily 90 tablet 3 11/10/19 24 025 Active lisinopriL (PRINIVIL,ZESTRIL ) 40 mg tabletIndications :Essential hypertension Take 1 tablet (40 mg total) by mouth daily 90 tablet 3 11/10/19 24 025 Active spironolactone (ALDACTONE) 25 mg tabletIndications :Dyspnea on exertion,Dyslipid emia,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 Assessment & Plan (10/05/2023 10:31 AM SIGNAL OPERATOR): The patient continues with positional therapy. Assessment & Plan (04/06/2023 10:12 AM CDT): Due to the snoring, the patient will continue with positional therapy. I have offered a nocturnal polysomnogram. Patient would like to wait at this time Assessment & Plan (08/27/2022 10:32 AM SIGNAL OPERATOR): Due to the patient having difficulty breathing [...] associat ed with type 2 diabetes mellitus ([facility]) 12/29/2021 Open wound of left lower leg [...] 02/22/2018 Assessment & Plan (06/06/2024 10:22 AM SIGNAL OPERATOR): The patient continues to use oxygen at 2 liters/minute while sleeping and p.r.n. during the day Assessment & Plan (10/05/2023 10:31 AM SIGNAL OPERATOR): The patient will continue to use 2 L of oxygen at night and during the day as needed. Assessment & Plan (04/06/2023 10:13 AM CDT): Continues to wear 2 L of oxygen with activity and while sleeping Assessment & Plan (08/27/2022 10:32 AM SIGNAL OPERATOR): Patient states she does use oxygen during the day and at nighttime. Assessment & Plan (01/29/2022 11:12 AM CDT): Patient states she does any oxygen during the day but she is using oxygen at night. Assessment & Plan (06/10/2021 9:42 AM SIGNAL OPERATOR): The patient continue to use 2 L of oxygen with activity. Vitamin D deficiency 01/10/2018 Chronic obstructive pulmonary disease 11/02/2017 Assessment & Plan (06/06/2024 10:21 AM SIGNAL OPERATOR): The patient has stage II COPD/centrilobular emphysema and continues to use an albuterol inhaler on a p.r.n. basis. She is currently doing well. She will follow up with Dr. Castro in 6 months. Assessment & Plan (10/05/2023 10:31 AM SIGNAL OPERATOR): Patient will continue with albuterol as needed up to 4 times a day for shortness of breath. Assessment & Plan (08/27/2022 10:31 AM SIGNAL OPERATOR): Patient continues Trelegy one inhalation once a [...] breath. Assessment & Plan (06/10/2021 9:42 AM SIGNAL OPERATOR): Patient continue to use Trelegy 1 inhalation [...] 09/27/2017 Assessment & Plan (06/06/2024 10:22 AM SIGNAL OPERATOR): There was no evidence of a pulmonary AVM on the transesophageal echocardiogram performed in 2020 but she did have evidence of a patent foramen ovale. She continues to follow with Cardiology. Assessment & Plan (10/05/2023 10:31 AM SIGNAL OPERATOR): Patient continues to follow with Cardiology. Assessment & Plan (04/06/2023 10:12 AM CDT): Continues to follow with Cardiology Assessment & Plan (08/27/2022 10:32 AM SIGNAL OPERATOR): The patient continues to follow with cardiology. Assessment & Plan (01/29/2022 11:11 AM CDT): Was not seen on the echo in June of 2021. Patient does have patent foramen ovale. She has seen Dr. Rudolph. Assessment & Plan (06/10/2021 9:42 AM SIGNAL OPERATOR): The patient has a transesophageal echo scheduled [...] neuropathy, with long-term current use of insulin ([facility]) 09/30/2016 Sinusitis 06/23/2016 Hematuria, unspecified 11/06/2015 Urinary tract infection 11/06/2015 Resolved Problems Problem Noted Date Diagnosed Date Resolved Date Left ureteral stone 11/21/2022 11/24/19 Hydroureteronephrosis 11/21/20222022 Osteomyelitis of fifth toe o f right foot ([facility]) 11/19/2022 11/24/2022 Centrilobular emphysema 04/24/2021 11/0 12/2023 [...] I will have an order sent to [facility] for her to obtain a portable oxygen concentrator. Acute thromboembolism of alessandra p veins of lower extremity ([facility]) 12/23/2016 11/19/2022 Social History Tobacco Use Types [...] often do you attend chur ch or sabianism services? More than 4 times per year 11/23/2022 Do you belong to any clubs o r organizations such as islam groups, unions, fraternal or athletic groups, or [...] place to sleep or slept in a retirement (including now)? No 11/23/2022 Personal Safety Answer Date Recorded Have you ever been in or are you currently in a harmful physical or emotional relationship or is someone making you feel afraid or unsafe? Denies 06/26/2024 Comments No Sex and Gender Information Value Date Recorded Sex Assigned at Not on file Legal Sex Female 8:18 PM SIGNAL OPERATOR Gender Identity Not on file Sexual Orientation Not on file Last Filed Vital Signs Vital Sign Reading Time Taken Comments Blood Pressure 163/57 06/26/2024 12:50 PM SIGNAL OPERATOR Pulse 63 06/26/2024 12:50 PM SIGNAL OPERATOR Temperature 36 ??C (96.8 ??F) 06/26/2024 12:50 PM SIGNAL OPERATOR Respiratory Rate 20 06/26/2024 12:50 PM SIGNAL OPERATOR Oxygen Saturation 93% 06/26/2024 12:50 PM SIGNAL OPERATOR Inhaled Oxygen Concentration - - Weight 105 kg (231 lb 7.7 oz) 06/26/2024 10:06 A M SIGNAL OPERATOR Height 162.6 cm (5' 4 ) 06/26/2024 10:06 AM SIGNAL OPERATOR Body Mass Index 39.73 06/26/2024 10:06 AM SIGNAL OPERATOR Plan of Treatment Not on file Medical Devices Implanted Type Area Resident Care Spec Device Identifier Shelf Expiration Date Model / Serial / Lot [employer] Frank Contour 6fr 26cm Large Inner Lumen Low Profile Bladder Gerard Taper Latex Free 180-223 - [id number] Implanted:Qty: 1 on 11/22/2022 by Davida León MD at [facility] Left: Urethra [employer] Frank 10/11/2024 180-223 / / [id number] Procedures Procedure Name Priority Date/Time Associated Diagnosis Comments POCT GLUCOSE DEVICE Routine 06/26/2024 1 1:47 AM SIGNAL OPERATOR [place] AN ELECTIVE ENDOTRACHEAL AIRWAY Routine 06/26/2024 11:18 AM SIGNAL OPERATOR [place] AN ELECTIVE SUPRAGLOTTIC AIRWAY Routine 06/26/2024 11:08 AM SIGNAL OPERATOR INSERTION SUPRAPUBIC TUBE 06/26/2024 10:57 AM SIGNAL OPERATOR Stricture of female urethra, unspecified stricture type Urinary retention POCT GLUCOSE DEVICE Routine 06/26/2024 1 0:49 AM SIGNAL OPERATOR ECG 12-LEAD STAT 06/26/2024 10:12 AM SIGNAL OPERATOR POTASSIUM, WHOLE BLOOD STAT 06/26/2024 10:11 AM SIGNAL OPERATOR POCT GLUCOSE DEVICE Routine 06/26/2024 1 0:01 AM SIGNAL OPERATOR EGFR Routine 11/10/2023 11:59 AM CDT Essential hypertension Stage 3 chronic kidney disease, unspecified whether stage 3a or 3b CKD (HCC) Chronic diastolic heart failure (HCC) LIPID PANEL Routine 05/06/2022 11:13 AM CDT Dyspnea on exertion 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) (HCC) Essential hypertension Venous stasis Dyslipidemia Hypertriglyceridemi a HEMOGLOBIN A1C Routine 10/01/2016 9:09 AM SIGNAL OPERATOR DIAGNOSTIC MAMMOGRAM BILATERAL W TERA Routine 03/07/2015 9:18 AM CDT OCCULT BLOOD, FECAL (FIT) Routine 02/19/2015 12:15 AM CDT from Last 3 Months or Most Recently Relevant to Health Maintenance Results * (ABNORMAL) POCT glucose (06/26/2024 11:47 AM SIGNAL OPERATOR) Glucose, POC 289(H) 70 - 199 mg/dL Blood 06/26/2024 11:4 7 AM SIGNAL OPERATOR 06/26/2024 11:47 AM SIGNAL OPERATOR us Davida Cerna MD LAB POCT ORDERABLES - DEVICE F inal Result Performing Organization Address City/State/[facility] Co de Phone Number [facility] ([place] [address] [facility] Department [place] [address] * [place] AN ELECTIVE ENDOTRACHEAL AIRWAY (06/26/2024 11:18 AM SIGNAL OPERATOR) Narrative Rich Nugent CRNA - 06/26/2024 11:18 AM SIGNAL OPERATOR Rich Nugent CRNA ? 06/26/2024 11:18 AM [...] Lorenz MD ANESTHESIA ORDERABLES Final Result * [place] AN ELECTIVE SUPRAGLOTTIC AIRWAY (06/26/2024 11:08 AM SIGNAL OPERATOR) Narrative Rich Nugent CRNA - 06/26/2024 11:08 AM SIGNAL OPERATOR Rich Nugent CRNA ? 06/26/2024 11:08 AM [...] * (ABNORMAL) POCT glucose (06/26/2024 10:49 AM SIGNAL OPERATOR) Glucose, POC 323(H) 70 - 199 mg/dL Blood 06/26/2024 10:4 9 AM SIGNAL OPERATOR 06/26/2024 10:49 AM SIGNAL OPERATOR Davida Cerna MD LAB POCT ORDERABLES - DEVICE F inal Result Performing Organization Address City/[facility] Co de Phone Number [facility] ([address] Department of Laboratories [place] [phone] * ECG 12 lead (06/26/2024 10:12 AM SIGNAL OPERATOR) 06/26/2024 10:1 2 AM SIGNAL OPERATOR Narrative [facility] - 06/26/2024 1:09 PM SIGNAL OPERATOR Vent Rate: 65 bpm RR Interval: 914 msec [place] Interval: 300 msec QRS Duration: 101 msec QT Interval: 410 msec QTC Interval: 422 msec P-R-T [place]: 54 - -9 - 89 degrees IMPRESSION: SINUS RHYTHM WITH SINUS ARRHYTHMIA WITH FIRST DEGREE AV BLOCK INFERIOR MYOCARDIAL INFARCTION , PROBABLY OLD [40+ ms Q WAVE AND/OR ST/T ABNORMALITY IN II/aVF] ANTEROSEPTAL MYOCARDIAL INFARCTION , OF INDETERMINATE AGE [40+ ms Q WAVE IN V1- V4] ABNORMAL ECG No change compared to prior EKG Electronically Signed By: Stephen Abreu MD [facility] us Rosalinda Salgado MD ECG ORDERABLES Final Re sult Influitive [facility] * (ABNORMAL) Potassium, whole blood (06/26/2024 10:11 AM SIGNAL OPERATOR) [facility] Potassium, bld 5.0(H) 3.3 - 4.9 mmol/L Comment: Interpretive Data This method is not able to assess for hemolysis, which may falsely increase potassium concentrations. If further testing is needed to evaluate this result, consider in-laboratory plasma potassium. Current Interpretive Data was last revised on 2022. Blood 06/26/2024 10:1 1 AM SIGNAL OPERATOR 06/26/2024 10:13 AM SIGNAL OPERATOR us Rosalinda Salgado MD LAB BLOOD ORDERABLES Fin al Result [facility] [address] [facility] [employer] [place], [place] [id number] * (ABNORMAL) POCT glucose (06/26/2024 10:01 AM SIGNAL OPERATOR) [facility] Glucose, POC 368(H) 70 - 199 mg/dL Blood 06/26/2024 10:0 1 AM SIGNAL OPERATOR 06/26/2024 10:01 AM SIGNAL OPERATOR Davida Cerna MD LAB POCT ORDERABLES - DEVICE F inal Result [facility] [address] [facility] [place] [address] * (ABNORMAL) eGFR (11/10/2023 11:59 AM CDT) [facility] eGFR 52(L) >=60 mL/min/1. 73 m2 Comment: [...] LAB BLOOD ORDERABLES F inal Result WILL [address] [facility] Department [place] [address] * (ABNORMAL) Lipid panel (05/06/2022 [...] LAB BLOOD ORDERABLES F inal Result WILL [address] [facility] [place] [address] * (ABNORMAL) Hemoglobin A1c (10/01/2016 9:09 AM SIGNAL OPERATOR) Hemoglobin A1c % 9.8(H) 4.8 - 5.9 % 10/01/2016 9:53 AM SIGNAL OPERATOR [facility] HISTORICAL RESULTS Comment: [place] Diabetes Association recommends that the goal of therapy should be an A1C hemoglobin of <7%. Reevaluate the treatment regimen in patients with an A1C >8%. 10/01/2016 9:09 AM SIGNAL OPERATOR 10/01/2016 9:36 AM SIGNAL OPERATOR Narrative [facility] HISTORICAL RESULTS - 10/01/2016 9:53 AM SIGNAL OPERATOR 12 HOURS FASTING Chris Ann DO LAB BLOOD ORDERABLES Fin al Result [facility] HISTORICAL RESULTS * Diagnostic Mammogram Bilateral W [...] signed by: Rich Rodríguez md/:03/07/2015 10:10:05 ?? Pulverizer Feeder: Norma HARMON (Daysi)(Ирина), [facility] letter sent: Normal Exam ?? Reading location: [...] abdomen/pelvis. ?? COMPARISONS: ??02/18/2015 CT abdomen/pelvis - [facility], ??06/20/2013 mammogram and 12/02/2009 mammogram - [facility]. ?? BREAST TISSUE: There are scattered areas [...] copy. Current study was also evaluated with [employer] version 7.2. CLINICAL: Follow-up of left breast skin thickening seen on recent CT abdomen/pelvis. COMPARISONS: 02/18/2015 CT abdomen/pelvis - [facility], 06/20/2013 mammogram and 12/02/2009 mammogram - [facility]. BREAST TISSUE: There are scattered areas of [...] Electronically signed by: Rich Rodríguez md/:03/07/2015 10:10:05 Pulverizer Feeder: Norma Aguilera)(Ирина), [facility] letter sent: Normal Exam Reading location: BI-RADS: 2 Benign [EOD] us Chris Ann DO IMG MAMMO PROCEDURES Fin al Result * Occult blood, fecal non neoplasm screening (02/19/2015 12:15 AM CDT) [facility] Signature Stool Occult Blood NEGATIVE NEGATIVE 02/19/2015 12:1 5 AM CDT 02/19/2015 3:37 AM CDT Narrative [facility] HISTORICAL RESULTS - 02/19/2015 4:17 AM CDT Collected By djt Chris Ann DO LAB BODY FLUIDS AND STOO LS ORDERABLES Final Result [facility] HISTORICAL RESULTS from Last 3 Months or Most Recently Relevant to Health Maintenance Insurance MEDICARE SOLUTIONS [facility] MEDICARE SOLUTIONS [employer] [address] MEDICARE SOLUTIONS [facility] MEDICARE Address: [facility] [address] [place] [address] Advance Directives For more information, please contact: [phone] * Full Code (Latest Code Status on File) Date Activated Date Inactivated Comments 11/19/2022 3:04 PM 11/24/2022 6:46 PM Care Teams Header Up Relationship Specialty Start Date End Date Nubia Lopez NP [address] [place] [address] [place] [address] PCP - General Family Medicine 06/20/24
--- OUTSIDE RECORDS SUMMARY | 2024-08-28 14:47 | XMS_ITS | Clinical Summary ---
Author Organization [facility] Address [address] [place] [address]. [place] [address] [place] [address] Care Team Providers Care Night Monitor Name Role Phone Adele Wharton MD Primary Care Provider Kt Lizama MD Unavailable Alphonse Lewis DPM Unavailable [phone] Allergies Active Allergy Reactions Criticality Noted [...] evening 02/27/20 20 Active vitamin D2, ergocalciferol, 25212 UNITS capsule Take 50,000 Units by mouth [...] Documents on File Type Date Recorded Patient Head Of Sales Promotion Expl anation Advance Directives and Living Will 04/03/2020 7:35 AM 01/15/16 HEALTH CARE POA Care Teams Night Monitor Relationship Specialty Start Date End Date Adele Wharton MD [address] [place] [address] PCP - General FAMILY PRACTICE 03/05/20 [place] [address] [facility] [address] [address] CARDIOVASCULAR DISEASE 04/04/20 Alphonse Lewis DPM [facility], [address] [place] [address] Referring Physician PODIATRY/SURGERY 03/12/22
--- OUTSIDE RECORDS SUMMARY | 2024-08-28 14:48 | XMS_ITS | Encounter Summary ---
Author Organization [facility]/Health system Facility Care Team Providers Care Pharmacy Resident Name Role Phone Chris Ann DO Primary Care Provider + Adele Wharton MD Primary Care Provider + Nubia Lopez NP Primary Care Provider [phone] Encounter Details Date Type Department Care Team (Latest Contact Info) Description 01/04/2017 Orders Only [facility] CLINCONV Provider, MD Angelique [address] [place] [address] Social History Tobacco Use Types Packs/Day Years Used Date Smoking Tobacco: Never Assessed Comments Unknown Sex and Gender Information Value Date Recorded Sex Assigned at Not on file 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
--- OUTSIDE RECORDS SUMMARY | 2024-08-28 14:48 | XMS_ITS | Encounter Summary ---
Author Organization [facility] Facility Care Team Providers Care Tag Clerk Name Role Phone Chris Ann DO Primary Care Provider + Adele Wharton MD Primary Care Provider + Nubia Lopez NP Primary Care Provider [phone] Encounter Details Date Type Department Care Team (Latest Contact Info) Description 03/19/2016 Orders Only [facility] CLINCONV Provider, MD Angelique [address] [place] [address] Social History Tobacco Use Types Packs/Day Years Used Date Smoking Tobacco: Never Assessed Comments Unknown Sex and Gender Information Value Date Recorded Sex Assigned at Not on file Legal Sex Female 8:18 PM BURLAPPER Gender Identity Not on file Sexual Orientation [...] on filedocumented in this encounter Care Teams Tag Clerk Relationship Specialty Start Date End Date Chris Ann DO PCP - General Family Medicine 11/08/19 03/28/20 Adele Wharton MD [address] [place] [address] PCP - General 03/29/20 06/19/24 Nubia Lopez NP [address] [place] [address] PCP - General Family Medicine 06/20/24 documented as of this encounter
--- OUTSIDE RECORDS SUMMARY | 2024-08-28 14:48 | XMS_ITS | CONTINUITY OF CARE DOCUMENT ---
Author Name iwona ashleydiane Address Unknown Organization [facility] Address [address] [facility] [address] [place] [address] Phone [phone] Care Team Providers Care Product Management Internship Name Role Phone Kt Lizama MD Unavailable MARCELL CARVER Unavailable SHAY DRAIN TECHNICIAN, DELORA Unavailable [phone] PROBLEMS Condition Status Date Provider Notes Hyperlipidemia active Kt Lizama MD Near syncope active Kt Lizama MD Abnormal EKG active Kt Lizama MD Shortness of breath on exertion active Anyi Lizama MD Leg edema, bilateral active Kt Lizama MD Diabetes mellitus active Kt Lizama MD HTN essential active Kt Lizama MD VENOUS INSUFFICIENCY active Kt Lizama MD Cardiology examination active Kt Lizama MD ENCOUNTERS Date Type Provider Location Encounter Diag nosis - In-person encounter Office Visit Kt Lizama MD [place] [facility] - In-person encounter Office Visit Kt Lizama MD TeleHealth - In-person encounter Office Visit Kt Lizama MD [place] [facility] - In-person encounter Office Visit Kt Lizama MD [place] [facility] Shortness of breath on exertionAbnormal EKGNear syncopeHyperlipidemia - In-person encounter Office Visit Kt Lizama MD [place] [facility] Cardiology examinationVENOUS INSUFFICIENCYHTN essentialDiabetes mellitusLeg edema, [...] juneon height E&M 64 [in_i] James Snyder [facility] Body Mass Index (Ratio) 39.48 kg/m2 Anyi Lizama MD respiratory rate E&M 18 /min [facility], diastolic 70 mm[Hg] To nsha Dunbar blood pressure, systolic 162 mm[Hg] Ton sha Mobile blood pressure, resting Yes [facility] Dunbar pulse rate 75 /min Tonsha Dunbar oxygen saturation, oximetry 96 % [facility] weight E&M 230 [lb_av] Tonsha Dunbar [...] 3.5-5.2 3 sodium, serum 143 mmol/L [employer] 579-118 8271/12/1 3 urea nitrogen/creatinin e ratio, serum 30 [...] Estab. 3 platelet count 256 X10E3/UL [employer] 980-010 8211/12/1 3 red blood cell distribution width 13.8 [...] tablet by mouth once a day - [facility] calcium carb-D3-mag owk16-dahy [phone] zy-nygm-nq-mg tablet active Take 1 tablet by mouth [...] Payer name Policy type / Coverage type [place] [employer] ID [facility] Other [facility] COMPLETE CARE [id number] (PPO C-SNP) Commercial insurance company [id number] HEALTHCARE AND FAMILY SERVICES Medicaid 1 [id number] ADVANCE DIRECTIVES Name Date POWER OF PLUMBER APPRENTICE TREATMENT PLAN Date Name Performer Cardiology:Needs to [...] up :It is possible she suffered an CT. However, for two weeks she has not [...] Name Provider Procedure Notes S tatus EKG tK Lizama MD completed EKG Kt Lizama MD completed
--- OUTSIDE RECORDS SUMMARY | 2024-08-28 14:48 | XMS_ITS | Encounter Summary ---
Author Organization [facility] Facility Care Team Providers Care Spiritual Advisor Name Role Phone Chris Ann DO Primary Care Provider + Adele Wharton MD Primary Care Provider + Nubia Lopez NP Primary Care Provider [phone] Encounter Details Date Type Department Care Team (Latest Contact Info) Description 08/06/2013 Orders Only [facility] CLINCONV Provider, MD Angelique [address] [place] [address] Social History Tobacco Use Types Packs/Day Years Used Date Smoking Tobacco: Never Assessed Comments Unknown Sex and Gender Information Value Date Recorded Sex Assigned at Not on file Legal Sex Female 8:18 PM TRANSPORTATION AID Gender Identity Not on file Sexual Orientation [...] on filedocumented in this encounter Care Teams Spiritual Advisor Relationship Specialty Start Date End Date [place], Chris Trell, DO PCP - General Family Medicine 11/08/19 03/28/20 Adele Wharton MD [address] [place] [address] PCP - General 03/29/20 06/19/24 Nubia Lopez NP [address] [place] [address] PCP - General Family Medicine 06/20/24 documented as of this encounter
--- OUTSIDE RECORDS SUMMARY | 2024-08-28 14:48 | XMS_ITS | Encounter Summary ---
Author Organization [facility] Facility Care Team Providers Care Supervisor Core Shop Name Role Phone Chris Ann DO Primary Care Provider + Adele Wharton MD Primary Care Provider + Nubia Lopez NP Primary Care Provider [phone] Encounter Details Date Type Department Care Team (Latest Contact Info) Description 03/16/2016 Orders Only [facility]INCONV Provider, MD Angelique [address] [place] [address] Social History Tobacco Use Types Packs/Day Years Used Date Smoking Tobacco: Never Assessed Comments Unknown Sex and Gender Information Value Date Recorded Sex Assigned at Not on file Legal Sex Female 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
--- OUTSIDE RECORDS SUMMARY | 2024-08-28 14:48 | XMS_ITS | Encounter Summary ---
Author Organization [facility] Facility Care Team Providers Care Rn Pacu Name Role Phone Chris Ann DO Primary Care Provider + Adele Wharton MD Primary Care Provider + Nubia Lopez NP Primary Care Provider [phone] Encounter Details Date Type Department Care Team (Latest Contact Info) Description 10/17/2014 Orders Only [facility] CLINCONV Provider, MD Angelique [address] [place] [address] Social History Tobacco Use Types Packs/Day Years Used Date Smoking Tobacco: Never Assessed Comments Unknown Sex and Gender Information Value Date Recorded Sex Assigned at Not on file 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, Chris Trell, DO PCP - General Family Medicine 11/08/19 03/28/20 Adele Wharton MD [address] [address] PCP - General 03/29/20 06/19/24 Nubia Lopez NP [address] [place] [address] PCP - General Family Medicine 06/20/24 documented as of this encounter
--- OUTSIDE RECORDS SUMMARY | 2024-08-28 14:48 | XMS_ITS | Encounter Summary ---
Author Organization [facility] Facility Care Team Providers Care Stunner And Shackler Name Role Phone Chris Ann DO Primary Care Provider + Adele Wharton MD Primary Care Provider + Nubia Lopez NP Primary Care Provider [phone] Encounter Details Date Type Department Care Team (Latest Contact Info) Description 08/07/2013 Orders Only [facility] CLINCONV Provider, MD Angelique [address] [place] [address] Social History Tobacco Use Types Packs/Day Years Used Date Smoking Tobacco: Never Assessed Comments Unknown Sex and Gender Information Value Date Recorded Sex Assigned at Not on file 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
--- OUTSIDE RECORDS SUMMARY | 2024-08-28 14:48 | XMS_ITS | Encounter Summary ---
Author Organization [facility] Facility Care Team Providers Care Edge Runner Name Role Phone Chris Ann DO Primary Care Provider + Adele Wharton MD Primary Care Provider + Nubia Lopez NP Primary Care Provider [phone] Encounter Details Date Type Department Care Team (Latest Contact Info) Description 10/06/2015 Orders Only [facility] CLINCONV Provider, MD Angelique [address] [place] [address] Social History Tobacco Use Types Packs/Day Years Used Date Smoking Tobacco: Never Assessed Comments Unknown Sex and Gender Information Value Date Recorded Sex Assigned at Not on file 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 Historical Provider MD Final Res ult * SCAN - LABS (10/06/2015 12:00 AM TRACK REPAIR SUPERVISOR) Narrative 10/06/2015 12:00 AM TRACK REPAIR SUPERVISOR Ordered by an unspecified provider. Historical Provider MD Final Res ult * SCAN - LABS (10/06/2015 12:00 AM TRACK REPAIR SUPERVISOR) Narrative 10/06/2015 12:00 AM TRACK REPAIR SUPERVISOR Ordered by an unspecified provider. Historical Provider Final Res ult documented in this encounter Visit Diagnoses Not on filedocumented in this encounter Care Teams Edge Runner Relationship Specialty Start Date End Date Chris Ann DO PCP - General Family Medicine 11/08/19 03/28/20 Adele Wharton MD [address] [place] [address] PCP - General 03/29/20 06/19/24 Nubia Lopez NP [address] [place] [address] PCP - General Family Medicine 06/20/24 documented as of this encounter
--- OUTSIDE RECORDS SUMMARY | 2024-08-28 14:48 | XMS_ITS | Encounter Summary ---
Author Organization [facility] Facility Care Team Providers Care Tip Cutter Name Role Phone Chris Ann DO Primary Care Provider + Adele Wharton MD Primary Care Provider + Nubia Lopez NP Primary Care Provider [phone] Encounter Details Date Type Department Care Team (Latest Contact Info) Description 09/27/2017 Orders Only [facility] CLINCONV Provider, MD Angelique [address] [place] [address] Social History Tobacco Use Types Packs/Day Years Used Date Smoking Tobacco: Never Assessed Comments Unknown Sex and Gender Information Value Date Recorded Sex Assigned at Not on file 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 us Historical Provider [facility] Final Result documented in this encounter Visit Diagnoses Not on filedocumented in this encounter Care Teams Tip Cutter Relationship Specialty Start Date End Date Chris Ann DO PCP - General Family Medicine 11/08/19 03/28/20 Adele Wharton MD [address] [place] [address] PCP - General 03/29/20 06/19/24 Nubia Lopez NP [address] [place] [address] PCP - General Family Medicine 06/20/24 documented as of this encounter
--- OUTSIDE RECORDS SUMMARY | 2024-08-28 14:48 | XMS_ITS | Encounter Summary ---
Author Organization [facility] Facility Care Team Providers Care Farm Operations Manager Name Role Phone Chris Ann DO Primary Care Provider + Adele Wharton MD Primary Care Provider + Nubia Lopez NP Primary Care Provider [phone] Encounter Details Date Type Department Care Team (Latest Contact Info) Description 09/06/2013 Orders Only [facility] CLINCONV Provider, MD Angelique [address] [place] [address] Social History Tobacco Use Types Packs/Day Years Used Date Smoking Tobacco: Never Assessed Comments Unknown Sex and Gender Information Value Date Recorded Sex Assigned at Not on file 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
--- OUTSIDE RECORDS SUMMARY | 2024-08-28 14:48 | XMS_ITS | Encounter Summary ---
Author Organization [facility] Facility Care Team Providers Care Acute Care Surgeon Name Role Phone Chris Ann DO Primary Care Provider + Adele Wharton MD Primary Care Provider + Nubia Lopez NP Primary Care Provider [phone] Encounter Details Date Type Department Care Team (Latest Contact Info) Description 02/11/2016 Orders Only [facility] CLINCONV Provider, MD Angelique [address] [place] [address] Social History Tobacco Use Types Packs/Day Years Used Date Smoking Tobacco: Never Assessed Comments Unknown Sex and Gender Information Value Date Recorded Sex Assigned at Not on file 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
--- OUTSIDE RECORDS SUMMARY | 2024-08-28 14:48 | XMS_ITS | Clinical Summary ---
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) Take 1 tablet (40 mg total) by mouth daily 90 tablet 3 11/10/19 24 Active chlorthalidone (HYGROTON) 25 mg tabletIndications :Dyspnea on exertion,Dyslipid emia Take 1 tablet (25 mg total) by mouth daily 90 tablet 3 11/10/19 24 Active clopidogreL (PLAVIX) 75 mg tabletIndications :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 (HCC),TIA (transient ischemic attack) Take 1 tablet (75 mg total) by mouth daily 90 tablet 3 11/10/19 24 025 Active lisinopriL (PRINIVIL,ZESTRIL ) 40 mg tabletIndications :Essential hypertension Take 1 tablet (40 mg total) by mouth daily 90 tablet 3 11/10/19 24 025 Active spironolactone (ALDACTONE) 25 mg tabletIndications :Dyspnea on exertion,Dyslipid emia,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 Assessment & Plan (10/05/2023 10:31 AM MAT REPAIRER): The patient continues with positional therapy. Assessment & Plan (04/06/2023 10:12 AM CDT): Due to the snoring, the patient will continue with positional therapy. I have offered a nocturnal polysomnogram. Patient would like to wait at this time Assessment & Plan (08/27/2022 10:32 AM MAT REPAIRER): Due to the patient having difficulty breathing [...] associat ed with type 2 diabetes mellitus ([facility]) 12/29/2021 Open wound of left lower leg [...] 02/22/2018 Assessment & Plan (06/06/2024 10:22 AM MAT REPAIRER): The patient continues to use oxygen at 2 liters/minute while sleeping and p.r.n. during the day Assessment & Plan (10/05/2023 10:31 AM MAT REPAIRER): The patient will continue to use 2 L of oxygen at night and during the day as needed. Assessment & Plan (04/06/2023 10:13 AM CDT): Continues to wear 2 L of oxygen with activity and while sleeping Assessment & Plan (08/27/2022 10:32 AM MAT REPAIRER): Patient states she does use oxygen during the day and at nighttime. Assessment & Plan (01/29/2022 11:12 AM CDT): Patient states she does any oxygen during the day but she is using oxygen at night. Assessment & Plan (06/10/2021 9:42 AM MAT REPAIRER): The patient continue to use 2 L of oxygen with activity. Vitamin D deficiency 01/10/2018 Chronic obstructive pulmonary disease 11/02/2017 Assessment & Plan (06/06/2024 10:21 AM MAT REPAIRER): The patient has stage II COPD/centrilobular emphysema and continues to use an albuterol inhaler on a p.r.n. basis. She is currently doing well. She will follow up with Dr. Castro in 6 months. Assessment & Plan (10/05/2023 10:31 AM MAT REPAIRER): Patient will continue with albuterol as needed up to 4 times a day for shortness of breath. Assessment & Plan (08/27/2022 10:31 AM MAT REPAIRER): Patient continues Trelegy one inhalation once a [...] breath. Assessment & Plan (06/10/2021 9:42 AM MAT REPAIRER): Patient continue to use Trelegy 1 inhalation [...] 09/27/2017 Assessment & Plan (06/06/2024 10:22 AM MAT REPAIRER): There was no evidence of a pulmonary AVM on the transesophageal echocardiogram performed in 2020 but she did have evidence of a patent foramen ovale. She continues to follow with Cardiology. Assessment & Plan (10/05/2023 10:31 AM MAT REPAIRER): Patient continues to follow with Cardiology. Assessment & Plan (04/06/2023 10:12 AM CDT): Continues to follow with Cardiology Assessment & Plan (08/27/2022 10:32 AM MAT REPAIRER): The patient continues to follow with cardiology. Assessment & Plan (01/29/2022 11:11 AM CDT): Was not seen on the echo in June of 2021. Patient does have patent foramen ovale. She has seen Dr. Rudolph. Assessment & Plan (06/10/2021 9:42 AM MAT REPAIRER): The patient has a transesophageal echo scheduled [...] neuropathy, with long-term current use of insulin ([facility]) 09/30/2016 Sinusitis 06/23/2016 Hematuria, unspecified 11/06/2015 Urinary [...] I will have an order sent to [facility] for her to obtain a portable oxygen concentrator. Acute thromboembolism of alessandra p veins of lower extremity (CMS/HCC) 12/23/2016 11/19/2022 Encounters Date Type Department Care Team Description 06/26/2024 11:30 AM MAT REPAIRER - 06/26/2024 12:15 PM MAT REPAIRER Surgery [facility] Operating Room [address] [place] [address] Davida León MD INSERTION SUPRAPUBIC TUBE with cystoscopy 06/26/2024 10:58 AM MAT REPAIRER Anesthesia Event [facility] Operating [facility] [address] [place] [address] Nuno Lorenz MD Kory, Christopher James, MD 06/26/2024 9:21 AM MAT REPAIRER - 06/26/2024 1:05 PM MAT REPAIRER Hospital Encounter [facility] Operating Room [address] [place] [address] Davida eLón MD Discharge Disposition: Discharge to home or self care 06/06/2024 10:00 AM MAT REPAIRER Office Visit [facility] Pulmonology [address] [place] [id number] Luigi Yost MD Panlobular emphysema (HCC) (Primary [...] Medical History Medical History Date Comments Stroke ([facility]) 2014 no deficits Hypertension Diabetes mellitus ([facility]) Hyperlipidemia Heart murmur Emphysema with chronic bronchitis ([facility]) Thyroid disease Sleep apnea DVT (deep venous thrombosis) ([facility]) ([facility]) Anxiety Kidney stones Atrial septal defect CHF (congestive heart failure) ([facility]) ([facility]) PVD (peripheral vascular disease) ([facility]) Family History Medical History Relation Name Comments [...] How often do you attend chur or taoism services? More than 4 times per year 11/23/2022 Do you belong to any clubs o r organizations such as shinto groups, unions, fraternal or athletic groups, or [...] place to sleep or slept in a correction (including now)? No 11/23/2022 Personal Safety Answer Date Recorded Have you ever been in or are you currently in a harmful physical or emotional relationship or is someone making you feel afraid or unsafe? Denies 06/26/2024 Comments No Sex and Gender Information Value Date Recorded Sex Assigned at Not on file Legal Sex Female 8:18 PM MAT REPAIRER Gender Identity Not on file Sexual Orientation Not on file Obstetrics History Last Filed Vital Signs Vital Sign Reading Time Taken Comments Blood Pressure 163/57 06/26/2024 12:50 PM MAT REPAIRER Pulse 63 06/26/2024 12:50 PM MAT REPAIRER Temperature 36 ??C (96.8 ??F) 06/26/2024 12:50 PM MAT REPAIRER Respiratory Rate 20 06/26/2024 12:50 PM MAT REPAIRER Oxygen Saturation 93% 06/26/2024 12:50 PM MAT REPAIRER Inhaled Oxygen Concentration - - Weight 105 kg (231 lb 7.7 oz) 06/26/2024 10:06 A M MAT REPAIRER Height 162.6 cm (5' 4 ) 06/26/2024 10:06 AM MAT REPAIRER Body Mass Index 39.73 06/26/2024 10:06 AM MAT REPAIRER Plan of Treatment Health Maintenance Due Date [...] history exists Medical Devices Implanted Type Area Top Lift Scourer Device Identifier Shelf Expiration Date Model / Serial / Lot Pycno Frank Contour 6fr 26cm Large Inner Lumen Low Profile Bladder Gerard Taper Latex Free [id number] - [id number] Implanted:Qty: 1 on 11/22/2022 by Davida León MD at [facility] Left: Urethra Pycno Frank 10/11/2024 [id number] / / [id number] Procedures Procedure Name Priority Date/Time Associated Diagnosis Comments POCT GLUCOSE DEVICE Routine 06/26/2024 1 1:[address] AN ELECTIVE ENDOTRACHEAL AIRWAY Routine 06/26/2024 11:[address] AN ELECTIVE SUPRAGLOTTIC AIRWAY Routine 06/26/2024 11:08 AM MAT REPAIRER INSERTION SUPRAPUBIC TUBE 06/26/2024 10:57 AM MAT REPAIRER Stricture of female urethra, unspecified stricture type Urinary retention POCT GLUCOSE DEVICE Routine 06/26/2024 1 0:49 AM MAT REPAIRER ECG 12-LEAD STAT 06/26/2024 10:12 AM MAT REPAIRER POTASSIUM, WHOLE BLOOD STAT 06/26/2024 10:11 AM MAT REPAIRER POCT GLUCOSE DEVICE Routine 06/26/2024 1 0:01 AM MAT REPAIRER EGFR Routine 11/10/2023 11:59 AM CDT Essential hypertension Stage 3 chronic kidney disease, unspecified whether stage 3a or 3b CKD (HCC) Chronic diastolic heart failure (HCC) LIPID PANEL Routine 05/06/2022 11:13 AM CDT Dyspnea on exertion 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 (CMS/HCC) (HCC) Essential hypertension Venous stasis Dyslipidemia Hypertriglyceridemi a HEMOGLOBIN A1C Routine 10/01/2016 9:09 AM MAT REPAIRER DIAGNOSTIC MAMMOGRAM BILATERAL W TERA Routine 03/07/2015 9:18 AM CDT OCCULT BLOOD, FECAL (FIT) Routine 02/19/2015 12:15 AM CDT from Last 3 Months or Most Recently Relevant to Health Maintenance Results * (ABNORMAL) POCT glucose (06/26/2024 11:47 AM MAT REPAIRER) Glucose, POC 289(H) 70 - 199 mg/dL Blood 06/26/2024 11:4 7 AM MAT REPAIRER 06/26/2024 11:47 AM MAT REPAIRER Davida Cerna MD LAB POCT ORDERABLES - DEVICE F inal Result Performing Organization Address City/State/[facility] Co de Phone Number WILL MENDE[facility] ([place]) [address] Department [place] [address] * CT AN ELECTIVE ENDOTRACHEAL AIRWAY (06/26/2024 11:18 AM MAT REPAIRER) Narrative Rich Nugent CRNA - 06/26/2024 11:18 AM MAT REPAIRER Rich Nugent CRNA ? 06/26/2024 11:18 AM Airway Patient location: OR Urgency: elective Indications for airway management: anesthesia Difficult airway: no Staff: Placed by: KNITTING MACHINE FIXER HEAD: Rich Nugent CRNA Emergent airway documentation: Risks [...] Lorenz MD ANESTHESIA ORDERABLES Final Result * CT AN ELECTIVE SUPRAGLOTTIC AIRWAY (06/26/2024 11:08 AM MAT REPAIRER) Narrative Rich Nugent CRNA - 06/26/2024 11:08 AM MAT REPAIRER Rich Nugent CRNA ? 06/26/2024 11:08 AM Airway Patient location: OR Urgency: elective Indications for airway management: anesthesia Difficult airway: no Staff: Placed by: KNITTING MACHINE FIXER HEAD: Rich Nugent CRNA Emergent airway documentation: Risks [...] * (ABNORMAL) POCT glucose (06/26/2024 10:49 AM MAT REPAIRER) Glucose, POC 323(H) 70 - 199 mg/dL Blood 06/26/2024 10:4 9 AM MAT REPAIRER 06/26/2024 10:49 AM MAT REPAIRER Davida Cerna MD LAB POCT ORDERABLES - DEVICE F inal Result [facility] [place]) [address] Department of Laboratories [place] [id number] * ECG 12 lead (06/26/2024 10:12 AM MAT REPAIRER) 06/26/2024 10:1 2 AM MAT REPAIRER Narrative [facility] - 06/26/2024 1:09 PM MAT REPAIRER Vent Rate: 65 bpm RR Interval: [address] Interval: 300 msec QRS Duration: 101 msec QT Interval: 410 msec QTC Interval: 422 msec P-R-T [place]: 54 - -9 - 89 degrees IMPRESSION: SINUS RHYTHM WITH SINUS ARRHYTHMIA WITH FIRST DEGREE AV BLOCK INFERIOR MYOCARDIAL INFARCTION , PROBABLY OLD [40+ ms Q WAVE AND/OR ST/T ABNORMALITY IN II/aVF] ANTEROSEPTAL MYOCARDIAL INFARCTION , OF INDETERMINATE AGE [40+ ms Q WAVE IN V1- V4] ABNORMAL ECG No change compared to prior EKG Electronically Signed By: Stephen Abreu MD [facility] us Rosalinda Salgado MD ECG ORDERABLES Final Re sult Performing Organization Address City/[facility]/ZIP Co de Phone Number [facility] * (ABNORMAL) Potassium, whole blood (06/26/2024 10:11 AM MAT REPAIRER) [facility] Potassium, bld 5.0(H) 3.3 - 4.9 mmol/L Comment: Interpretive Data This method is not able to assess for hemolysis, which may falsely increase potassium concentrations. If further testing is needed to evaluate this result, consider in-laboratory plasma potassium. Current Interpretive Data was last revised on 2022. Blood 06/26/2024 10:1 1 AM MAT REPAIRER 06/26/2024 10:13 AM MAT REPAIRER us Rosalinda Salgado MD LAB BLOOD ORDERABLES Fin al Result Performing Organization Address [facility] Co de Phone Number [facility] ([place]) [address] [facility] [place] [address] * (ABNORMAL) POCT glucose (06/26/2024 10:01 AM MAT REPAIRER) [facility] Glucose, POC 368(H) 70 - 199 mg/dL Blood 06/26/2024 10:0 1 AM MAT REPAIRER 06/26/2024 10:01 AM MAT REPAIRER Davida Cerna MD LAB POCT ORDERABLES - DEVICE F inal Result Performing Organization Address [facility] Co de Phone Number [facility] ([place]) [address] [facility] [place] [place] [address] * (ABNORMAL) eGFR (11/10/2023 11:59 AM CDT) [facility] eGFR 52(L) >=60 mL/min/1. 73 m2 [...] BLOOD ORDERABLES F inal Result [facility] [address] Department [place] [address] * (ABNORMAL) Lipid panel (05/06/2022 [...] BLOOD ORDERABLES F inal Result [facility] [address] Department [place] [address] * (ABNORMAL) Hemoglobin A1c (10/01/2016 9:09 AM MAT REPAIRER) Hemoglobin A1c % 9.8(H) 4.8 - 5.9 % 10/01/2016 9:53 AM MAT REPAIRER [facility] HISTORICAL RESULTS Comment: [place] [employer] recommends that the goal of therapy should be an A1C hemoglobin of <7%. Reevaluate the treatment regimen in patients with an A1C >8%. 10/01/2016 9:09 AM MAT REPAIRER 10/01/2016 9:36 AM MAT REPAIRER Narrative [facility] HISTORICAL RESULTS - 10/01/2016 9:53 AM MAT REPAIRER 12 HOURS FASTING Chris Ann DO LAB BLOOD ORDERABLES Fin al Result [facility] HISTORICAL RESULTS * Diagnostic Mammogram Bilateral W [...] signed by: Rich Rodríguez md/:03/07/2015 10:10:05 ?? Slip Cover Operator: Norma HARMON (Daysi)(Ирина), [facility] letter sent: Normal Exam ?? Reading location: [...] abdomen/pelvis. ?? COMPARISONS: ??02/18/2015 CT abdomen/pelvis - [facility], ??06/20/2013 mammogram and 12/02/2009 mammogram - [facility]. ?? BREAST TISSUE: There are scattered areas [...] copy. Current study was also evaluated with [employer] version 7.2. CLINICAL: Follow-up of left breast skin thickening seen on recent CT abdomen/pelvis. COMPARISONS: 02/18/2015 CT abdomen/pelvis - [facility], 06/20/2013 mammogram and 12/02/2009 mammogram - [facility]. BREAST TISSUE: There are scattered areas of [...] Electronically signed by: Rich Rodríguez md/:03/07/2015 10:10:05 Slip Cover Operator: Norma Aguilera)(Ирина), [facility] letter sent: Normal Exam Reading location: BI-RADS: 2 Benign [EOD] us Chris Ann DO IMG MAMMO PROCEDURES Fin al Result * Occult blood, fecal non neoplasm screening (02/19/2015 12:15 AM CDT) Stool Occult Blood NEGATIVE NEGATIVE 02/19/2015 4:[address] [facility] HISTORICAL RESULTS 02/19/2015 12:1 5 AM CDT 02/19/2015 3:37 AM CDT Narrative [facility] HISTORICAL RESULTS - 02/19/2015 4:17 AM CDT Collected By djt us Chris Ann DO LAB BODY FLUIDS AND STOO LS ORDERABLES Final Result [facility] HISTORICAL RESULTS from Last 3 Months or Most Recently Relevant to Health Maintenance Insurance MEDICARE SOLUTIONS [place] MEDICARE SOLUTIONS IDPA MEDICARE SOL[employer] [address] MEDICARE SOLUTIONS Advance Directives For more information, please contact: [phone] * Full Code (Latest Code Status on File) Date Activated Date Inactivated Comments 11/19/2022 3:04 PM 11/24/2022 6:46 PM Care Teams Rehanger Relationship Specialty Start Date End Date Nubia Lopez NP [address] [place] [address] [place] [address] PCP - General Family Medicine 06/20/24
--- OUTSIDE RECORDS SUMMARY | 2024-08-28 14:48 | XMS_ITS | Encounter Summary ---
Author Organization [facility] Care Team Providers Care Gold Cutter Name Role Phone Chris Ann DO Primary Care Provider + Adele Wharton MD Primary Care Provider + Nubia Lopez NP Primary Care Provider [phone] Encounter Details Date Type Department Care Team (Latest Contact Info) Description 03/12/2015 Orders Only [facility] CLINCONV Provider, MD Angelique [address] [place] [id number] Social History Tobacco Use Types Packs/Day Years Used Date Smoking Tobacco: Never Assessed Comments Unknown Sex and Gender Information Value Date Recorded Sex Assigned at Not on file 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
[2024-08-28 15:22] VITALS: BP 206/100; PULSE 77; RESP 20; O2SAT 92
[2024-08-28 15:27] LABS: Basophils Percent Auto 0.4 % (0.2-1.2); Eosinophils Absolute Auto 0.1 K/mm3 (0-0.3); Eosinophils Percent Auto 1.2 % (0-4.4); Hematocrit 37.5 % (37.0-47.0); Hemoglobin 12.2 g/dL (12.0-15.0); Immature Granulocyte Absolute 0.04 K/mm3 (0.00-0.031); Immature Granulocyte Percent A 0.4 % (0-0.5); Lymphocytes Absolute Auto 1.42 K/mm3 (0.9-3.2); Lymphocytes Percent Auto 13.7 % (18.3-44.2); Mean Corpuscular HGB Conc 32.5 g/dl (32-36); Mean Corpuscular Hemoglobin 30.6 pg (26-34); Monocytes Absolute Auto 0.8 K/mm3 (0.1-0.6); Monocytes Percent Auto 7.8 % (2.6-8.5); Neutrophils Percent Auto 76.5 % (45.5-73.1); Platelet Count Result 223 k/mm3 (150-375); Red Blood Count 3.99 M/mm3 (4.2-5.4); Red Cell Distribution Width 12.8 % (11.5-14.5); White Blood Count 10.4 K/mm3 (4.5-10.0)
[2024-08-28] MEDS: SODIUM CHLORIDE 0.9% IV 1,000 ML 999 ML IV CONT (15:27)
[2024-08-28 15:41] LABS: Alanine Aminotransferase 12 U/L (6-35); Albumin Level 3.8 g/dL (3.5-5.1); Alkaline Phosphatase 85 U/L (38-126); Anion Gap 5 mmol/L (4-12); Aspartate Amino Transferase 17 U/L (14-36); Bilirubin,Total 0.9 mg/dL (0.2-1.3); Blood Urea Nitrogen 31 mg/dL (7-17); Calcium 9.3 mg/dL (8.4-10.2); Carbon Dioxide 33 mmol/L (22-30); Chloride 97 mmol/L (98-107); Estimated CRCL calculation 51 ml/min; Estimated Glomerular Filt Rate 55; Glucose 311 mg/dL (65-110); Potassium 4.6 mmol/L (3.4-5.0); Sodium 135 mmol/L (137-145)
[2024-08-28 16:17] LABS: Lactic Acid Reflex 0.8 mmol/L (0.7-2.0)
[2024-08-28 16:24] LABS: Add Urine Microscopic? YES; Appearance Urine Clear (Clear); Bacteria Urine 2+ /hpf; Bilirubin Urine Negative (Negative); Blood Urine 1+ (Negative); Budding Yeast Urine Present /hpf; Color Urine Yellow (Yellow); Glucose Urine UA 3+ mg/dL (Negative); Hyaline Casts Urine Present /lpf; Ketones Urine Negative (Negative); Leukocyte Esterase Ur 2+ LEU/UL (Negative); Need Manual Microscopic Reviewed; Nitrate Urine Positive (Negative); Non Pathogenic Casts 0-2; Protein Urine 3+ mg/dL (Negative); Specific Grav Ur 1.021 (1.001-1.035); Squamous Epithelial Cell Urine None Seen /hpf (Few); Urobilinogen Urine 0.2 mg/dL (<2.0); WBC Clumps Urine Present /HPF; WBC Urine >100 /hpf (0-3); pH Urine 5.5 (5.0-9.0)
[2024-08-28 16:34] VITALS: BP 153/48; RESP 16; O2SAT 98
[2024-08-28 16:46] LABS: Influenza A QL RT-PCR Negative (Negative); Influenza B QL RT-PCR Negative (Negative); RSV RNA, RT-PCR Negative (Negative); SARS-CoV-2 RNA PCR Negative (Negative)
[2024-08-28 17:33] VITALS: BP 186/53; O2SAT 95
--- NOTE | 2024-08-28 17:51 | ED_ITS ---
HPI - General Adult General Chief complaint: Wound/Laceration Stated complaint: leg infection Time Seen by Provider: 08/28/24 13:57 History of Present Illness HPI narrative: This is a 73-year-old woman presenting ED with a chief complaint leg pain. Patient has lipodermatosclerosis of the legs bilaterally. She has a small abrasion over lateral right calf. She has noticed increased pain and swelling. She also says she had a subjective fever last night and took a dose of Tylenol was been feeling well since then. She denies chest pain difficulty breathing abdominal pain. She does have an indwelling Onofre and is awaiting culture results from outside facility. Related Data Home Medications ?Medication ?Instructions ?Recorded ?Confirmed ?Last Taken ?Type aspirin 81 mg tablet,delayed 81 mg PO DAILY 03/08/21 06/19/24 Unknown History release atorvastatin 40 mg tablet 40 mg PO DAILY 03/08/21 06/19/24 Unknown History clopidogrel 75 mg tablet 75 mg PO DAILY 03/08/21 06/19/24 Unknown History cyanocobalamin (vitamin B-12) 500 500 mcg PO DAILY 01/30/22 06/19/24 Unknown History mcg lozenges (Vitamin B-12) diazepam 10 mg tablet 10 mg PO HS 01/30/22 06/19/24 Unknown History hydrocodone 5 mg-acetaminophen 325 1 tablet Q6H 01/30/22 06/19/24 Unknown History mg tablet lisinopril 40 mg tablet 40 mg PO DAILY 01/30/22 06/19/24 Unknown History spironolactone 25 mg tablet 25 mg PO DAILY 01/30/22 06/19/24 Unknown History hydrochlorothiazide 25 mg tablet 25 mg PO DAILY 06/19/24 06/19/24 Unknown History torsemide 10 mg tablet 10 mg PO QAM 06/19/24 06/19/24 Unknown History Allergies Allergy/AdvReac Type Severity Reaction Status Date / Time latex Allergy Unknown Hives Verified 06/19/24 08:45 Penicillins Allergy Unknown HIVES Verified 06/19/24 08:45 Sulfa (Sulfonamide Allergy Unknown REDNESS/ALEXANDRA Verified 06/19/24 08:45 Antibiotics) H [facility] Past Medical History Medical History Mild coronary artery disease Uncontrolled diabetes mellitus HgA1c > 10 on admission Obesity (BMI 30-39.9) Chronic respiratory failure with hypoxia, on home oxygen therapy COPD (chronic obstructive pulmonary disease) Hypertension Diabetes Surgical History Surgical History History of lithotripsy Family History Family History Sibling Family history of obesity Family history of migraine headaches Hypertension Asthma Family history of diabetes mellitus in first degree relative Mother Family history of malignant neoplasm of brain Other Family history of alcoholism Social History Social History Smoking status: Former smoker Tobacco type: cigarettes Second hand tobacco smoke exposure: No Alcohol intake: never Substance use: never Substance use type: does not use Do You Feel Safe in your Home?: Yes Lack of Transportation: No Lack of Food: Never True Current Housing: I Have Housing Concerned About Future Housing: No Difficulty Paying Gas/Electric Bills: No Difficulty Paying for Meds: No Currently Unemployed: No Education: High School Diploma/GED Difficulty w/ Childcare or Family Care: No Gender identity (if verbalized by the patient): Female Spiritual care concerns: No Exam 2 Narrative: APPEARANCE: No apparent distress. Head: atraumatic. EYES: EOMI, NOSE: Atraumatic NECK: Trachea midline RESPIRATORY: No increased rate of breathing CARDIOVASCULAR: RRR, ABDOMINAL: Non-distended MUSCULOSKELETAl: No obvious deformities NEURO: Alert. Moving 4/4 extremities SKIN:: Lipodermatosclerosis, 2 abrasions over the right calf with minimal surrounding erythema. No fluctuant mass. PSYCHIATRIC: Normal affect Course Vital Signs Vital signs: Vital Signs Temperature 98 F 08/28/24 13:01 Pulse Rate 79 08/28/24 13:01 Respiratory Rate 20 08/28/24 13:01 Blood Pressure 147/62 H 08/28/24 13:01 Pulse Oximetry 93 08/28/24 13:01 Oxygen Delivery Room Air 08/28/24 13:01 Temperature 98 F 08/28/24 13:01 Pulse Rate 77 08/28/24 15:22 Respiratory Rate 16 08/28/24 16:34 Blood Pressure 186/53 H 08/28/24 17:33 Pulse Oximetry 95 08/28/24 17:33 Oxygen Delivery Room Air 08/28/24 13:01 Medical Decision Making MDM Narrative Medical decision making narrative: -Course: 73-year-old female presenting for a wound check due to abrasion on her right calf. She has 2 scabbed over wounds with some mild surrounding erythema but no overt cellulitic changes. White count is 10.4 and she has stable vital signs. Afebrile. She also chest asked us to check her urine as it is had a strange color odor. Urine looks infected but she has a indwelling Onofre which will skew are resolved. Cultures been sent. Patient will be placed on cefdinir which will cover both UTI and skin infection. She needs close follow-up with her primary care physician as she is high risk for her wound become infected. -DDX includes but is not limited to: Chronic venous insufficiency, cellulitis, soft tissue infection, urinary tract infection, viral syndrome -Independent interpretation of studies: White count 10.4, lactic 0.8 Urine indicative infection but taken from an indwelling Onofre culture sent Viral swabs negative X-rays negative -Interventions: Cefdinir -Shared decision making / Disposition: Discharge -RX cefdinir 300 mg x 7 days Vital Signs Vital Signs: Vital Signs Temperature 98 F 08/28/24 13:01 Pulse Rate 79 08/28/24 13:01 Respiratory Rate 20 08/28/24 13:01 Blood Pressure 147/62 H 08/28/24 13:01 Pulse Oximetry 93 08/28/24 13:01 Oxygen Delivery Room Air 08/28/24 13:01 Temperature 98 F 08/28/24 13:01 Pulse Rate 77 08/28/24 15:22 Respiratory Rate 16 08/28/24 16:34 Blood Pressure 186/53 H 08/28/24 17:33 Pulse Oximetry 95 08/28/24 17:33 Oxygen Delivery Room Air 08/28/24 13:01 Lab Data 08/28/24 15:19 08/28/24 15:19 Labs: Lab Results 08/28/24 08/28/24 Range/Units 15:19 16:03 WBC 10.4 H (4.5-10.0) K/mm3 RBC 3.99 L (4.2-5.4) M/mm3 Hgb 12.2 (12.0-15.0) g/dL Hct 37.5 (37.0-47.0) % MCV 94.0 (80-100) fl MCH 30.6 (26-34) pg MCHC 32.5 (32-36) g/dl RDW 12.8 (11.5-14.5) % Plt Count 223 (150-375) k/mm3 MPV 11.0 H (7.4-10.4) fl Immature Gran % (Auto) 0.4 (0-0.5) % Neut % (Auto) 76.5 H (45.5-73.1) % Lymph % (Auto) 13.7 L (18.3-44.2) % Davidson % (Auto) 7.8 (2.6-8.5) % Eos % (Auto) 1.2 (0-4.4) % Baso % (Auto) 0.4 (0.2-1.2) % Lymph # (Auto) 1.42 (0.9-3.2) K/mm3 Davidson # (Auto) 0.8 H (0.1-0.6) K/mm3 Eos # (Auto) 0.1 (0-0.3) K/mm3 Baso # (Auto) 0.0 (0.0-0.1) K/mm3 Abs Immat Gran (auto) 0.04 H (0.00-0.031) K/mm3 Absolute Neuts (auto) 8.0 H (1.3-6.7) K/mm3 Absolute Nucleated RBC 0.000 (0.0-0.012) K/mm3 Nucleated RBC % 0.0 (0.0-0.2) % Sodium 135 L (137-145) mmol/L Potassium 4.6 (3.4-5.0) mmol/L Chloride 97 L (98-107) mmol/L Carbon Dioxide 33 H (22-30) mmol/L Anion Gap 5 (4-12) mmol/L BUN 31 H (7-17) mg/dL Creatinine 0.99 (0.7-1.0) mg/dL Estim Creat Clear Calc 51 ml/min Estimated GFR 55 L (59 - ) Glucose 311 H (65-110) mg/dL Lactic Acid 0.8 (0.7-2.0) mmol/L Calcium 9.3 (8.4-10.2) mg/dL Total Bilirubin 0.9 (0.2-1.3) mg/dL AST 17 (14-36) U/L ALT 12 (6-35) U/L Alkaline Phosphatase 85 (38-126) U/L Total Protein 7.0 (6.3-8.2) g/dL Albumin 3.8 (3.5-5.1) g/dL Urine Color Yellow (Yellow) Urine Appearance Clear (Clear) Urine pH 5.5 (5.0-9.0) Ur Specific [employer] 1.021 (1.001-1.035) Urine Protein 3+ H (Negative) mg/dL Urine Glucose (UA) 3+ H (Negative) mg/dL Urine Ketones Negative (Negative) mg/dL Ur Blood (Man) 1+ H (Negative) Urine Nitrate Positive H (Negative) Urine Bilirubin Negative (Negative) Urine Urobilinogen 0.2 (<2.0) mg/dL Add Ur Microanalysis Reviewed Leukocyte Esterase Rfl 2+ H (Negative) MIMI/UL Urine RBC 3-5 H (0-2) /hpf Urine WBC >100 H (0-3) /hpf Urine WBC Clumps Present H (None) /HPF Ur Squamous Epith Cells None seen (Few) /hpf Urine Bacteria 2+ H /hpf Urine Casts 0-2 Hyaline Casts Present (None) /lpf Urine Yeast (Budding) Present H (None) /hpf Influenza A (RT-PCR) Negative (Negative) Influenza B (RT-PCR) Negative (Negative) RSV (RT-PCR) Negative (Negative) SARS-CoV-2 RNA (RT-PCR) Negative (Negative) Discharge Plan Discharge Clinical Impression: Acute UTI, Leg wound, right Patient Disposition: Home, Self-Care Condition: Stable Instructions: Antibiotic Form, Catheter-associated Urinary Tract Infection (ED), Chronic Wounds (ED) Additional Instructions: Please take the antibiotics as instructed. If the redness in her leg is getting worse please return to the ED for re-evaluation. If you develop fevers, weakness or feel like her condition is worse please return to the ED. Please call your primary care office and arrange follow-up in the next 24-48 hours so they can ensure that your wound is healing appropriately. They may be able to refer you to a wound care clinic. Patient Language: Polish Prescriptions: New cefdinir 300 mg capsule 300 mg PO Q12H Qty: 14 0RF No Action hydrochlorothiazide 25 mg tablet 25 mg PO DAILY torsemide 10 mg tablet 10 mg PO QAM Rx Instructions: take once a week insulin glargine [Lantus Solostar U-100 Insulin] 100 unit/mL (3 mL) insulin pen 60 unit subcut DAILY Qty: 60 1RF Gvoke HypoPen 2-Pack 1 mg/0.2 mL auto-injector 1 mg subcut ONCE Qty: 0.4 4RF Rx Instructions: may repeat once after 15 minutes if no response glucose [Dex4 Glucose] 4 gram tablet,chewable 16 g PO Q15M PRN (Reason: hypoglycemia) Qty: 60 1RF Rx Instructions: until symptoms of low blood sugar are controlled (DME) pen needle, diabetic [CareTouch Pen Needle] 29 gauge x 1/2 needle See Rx Instructions .Route Qty: 400 2RF Rx Instructions: Use to administer insulin 4 times a day insulin lispro [Humalog KwikPen Insulin] 100 unit/mL insulin pen 10 unit subcut TIDWMEAL MDD 66 Qty: 60 1RF Rx Instructions: 10 units premeal + SSI 150-200: 2 units 201-250: 4 units 251-300: 6 units 301-350: 8 units 351-400: 10 units >401: 12 unit atorvastatin 40 mg tablet 40 mg PO DAILY clopidogrel 75 mg tablet 75 mg PO DAILY aspirin 81 mg Tablet,Delayed Release (Dr/Ec) 81 mg PO DAILY spironolactone 25 mg Tablet 25 mg PO DAILY lisinopril 40 mg Tablet 40 mg PO DAILY cyanocobalamin (vitamin B-12) [Vitamin B-12] 500 mcg Lozenge 500 mcg PO DAILY diazepam 10 mg Tablet 10 mg PO HS hydrocodone-acetaminophen 5-325 mg tablet 1 tablet Q6H Follow-up/Referrals: Akiko,Adele Giang MD [Primary Care Provider] - 2 Days (wound check )
== END 2024-08-28 18:20 | disposition home or self-care (01) ==
PROVIDERS: Nurse Practitioner Family; Emergency Provider Emergency Medicine; PCP Family Medicine
DX: N39.0 Urinary tract infection, site not specified (principal); S80.921A Unspecified superficial injury of right lower leg, initial encounter; Z20.822 Contact with and (suspected) exposure to COVID-19; I25.10 Atherosclerotic heart disease of native coronary artery without angina pectoris; E11.9 Type 2 diabetes mellitus without complications; J44.9 Chronic obstructive pulmonary disease, unspecified; J96.11 Chronic respiratory failure with hypoxia; Z99.81 Dependence on supplemental oxygen; I10 Essential (primary) hypertension
CPT/HCPCS: 36415; 73590; 80053; 81001; 83605; 85025; 87086; 87186; 87637; 96360; 99283; J7030